=== PATIENT | male | born 1960 | race Caucasian/White ===

== ENCOUNTER 2018-08-29 16:31 | Inpatient (IN) ==
[2018-08-29] MEDS ORDERED: Morphine Inj 4 MG/ML Vial IV.PUSH ONE (21:40)
[2018-08-29] MEDS ORDERED: Sod Chloride 0.9% Inj 1,000 ML IV.SIG ONE (21:40)
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
--- NOTE | 2018-08-29 21:59 | XR ---
EXAM DATE: 08/29/2018 9:54 PM EST AGE/SEX: 57 years / Male INDICATIONS: Lower chest, upper abdomen pain. Pain on left side CLINICAL DATA: This is the patient's initial encounter. Patient reports that signs and symptoms have been present for 1 day and indicates a pain score of 10/10. MEDICAL/SURGICAL HISTORY: None. None. COMPARISON: No prior exams available for comparison. FINDINGS: There is scattered minimal infiltrate in the lateral lungs bilaterally without dense consolidation. N o effusion. No pneumothorax. Mildly tortuous aorta. CONCLUSION: Minimal ill-defined infiltrate in the lungs. Findings nonspecific but cannot exclude mild bronchopneu monia. Electronically signed by: Rangel Parra MD Board Certified Radiologist 08/29/2018 9:58 PM EST
[2018-08-29 22:18] LABS: Baso % (Auto) 0.2 % (0.0-2.0); Eos % (Auto) 0.3 % (0.0-4.0); Hematocrit 41.1 % (39.0-51.0); Hemoglobin 14.3 gm/dL (13.0-17.0); Lymph % (Auto) 7.1 % (9.0-44.0); Mean Corpuscular HGB Conc 34.7 % (32.0-36.0); Mean Corpuscular Hemoglobin 30.2 pg (27.0-34.0); Mean Corpuscular Volume 87.1 fL (80.0-100.0); Mean Platelet Volume 7.4 fL (7.0-11.0); Mono # (Auto) 1.4 th/mm3 (0.0-0.9); Mono % (Auto) 10.1 % (0.0-8.0); Neut # (Auto) 11.1 th/mm3 (1.8-7.7); Neut % (Auto) 82.3 % (16.0-70.0); Platelet Count 493 th/mm3 (150-450); Red Blood Count 4.73 mil/mm3 (4.50-5.90); Red Cell Distribution Width 12.5 % (11.6-17.2); White Blood Count 13.5 th/mm3 (4.0-11.0)
[2018-08-29] MEDS ORDERED: Azithromycin Powder 1 GM Packet PO ONE (22:20)
[2018-08-29 22:31] LABS: Activated Partial Thrombo Time 23.1 sec (23.4-31.7); INR 1.1 Ratio; Prothrombin Time 10.7 sec (9.8-11.6)
[2018-08-29 22:36] LABS: Albumin 3.3 g/dL (3.4-5.0); Anion Gap 8 meq/L (5-15); Aspartate Aminotransferase 22 U/L (15-37); Blood Urea Nitrogen 8 mg/dL (7-18); Carbon Dioxide 23.9 meq/L (21.0-32.0); Chloride 108 meq/L (98-107); Glomerular Filtration Rate Greater Than 89 mL/min (>89); Glucose,Random 116 mg/dL (74-106); Lipase 101 U/L (73-393); Magnesium 2.2 mg/dL (1.5-2.5); Sodium 140 meq/L (136-145)
[2018-08-29 22:37] LABS: Alanine Aminotransferase 27 U/L (12-78)
[2018-08-29 22:41] LABS: Alkaline Phosphatase 62 U/L (45-117)
[2018-08-29 22:44] LABS: Creatine Kinase 59 U/L (39-308)
[2018-08-29 23:23] LABS: Bilirubin,Urine Negative (Negative); Clarity,Urine Hazy (Clear); Color,Urine Yellow (Yellw/Straw); Glucose,Urine (UA) Negative (Negative); Leukocyte Esterase,Urine Negative (Negative); Mucus,Urine Many /lpf (Occasional); Nitrite,Urine Negative (Negative); Specific Gravity,Urine 1.024 (1.002-1.035)
--- NOTE | 2018-08-30 01:35 | CT ---
EXAM DATE: 08/30/2018 12:48 AM EST AGE/SEX: 57 years / Male INDICATIONS: Left sided abdomen pain. CLINICAL DATA: This is the patient's initial encounter. Patient reports that signs and symptoms have been present for 1 day and indicates a pain score of 7/10. MEDICAL/SURGICAL HISTORY: None. None. ORAL CONTRAST: No oral contrast ingested. RADIATION DOSE: 13.44 CTDI (mGy) COMPARISON: No prior exams available for comparison. TECHNIQUE: Multiple contiguous axial images were obtained through the abdomen and pelvis following b olus infusion of 93 ml Omnipaque 350 (iohexol) nonionic water-soluble contrast as a cumulative dose for multiple exams. No oral contrast ingested. Using automated exposure control and adjustment of t he mA and/or kV according to patient size, radiation dose was kept as low as reasonably achievable to obtain optimal diagnostic quality images. DICOM format image data is available electronically for r eview and comparison. FINDINGS: Lower Lungs: Probable subpleural scattered atelectatic changes in both hemithoraces. No confluent inf iltrate. Liver: The liver has a homogeneous density without space-occupying lesion. There is no dilation of th e biliary tree. Spleen: Spleen has a heterogeneous enhancement pattern but this is not characteristic of the patchy enhancement identified on the early phase of contrast administration. I'm concerned that this represe nts splenic infarction with a good portion of the splenic periphery an opacified. In addition, there appears to be some thrombus within portions of the splenic artery. Pancreas: Unremarkable without mass or calcification. Kidneys: Normal in size and shape. No evidence of mass or hydronephrosis. Adrenal Glands: Unremarkable. Aorta: The aorta and proximal iliac vessels are grossly unremarkable without aneurysmal dilation. Bowel/Mesentery: The bowel loops are grossly unremarkable. The cecum and sigmoid colon have a normal configuration. Abdominal Wall: Intact. Retroperitoneum: No evidence of adenopathy in the retrocrural, para-aortic, or deep pelvic regions. Bladder: Contours are smooth. Reproductive Organs: Prostate is prominent measuring approximately 5 cm in the greatest transverse d imension with dystrophic type calcification. Inguinal: The inguinal region is unremarkable without evidence of adenopathy. Bony Structures: Unremarkable. Post Contrast: No abnormal areas of enhancement seen. CONCLUSION: 1. I believe patient symptoms are due to splenic infarction with only central enhancement of the spl enic parenchyma. There appears to be some thrombus within the splenic artery. 2. Prominent prostate with dystrophic type calcifications. Electronically signed by: Jeffery Mcbride MD Board Certified Radiologist 08/30/2018 1:34 AM EST
[2018-08-30] MEDS ORDERED: Acetaminophen 325 MG Tablet PO PRN (03:29)
[2018-08-30] MEDS ORDERED: Bisacodyl 10 MG Supp RECTAL PRN (03:29)
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
[2018-08-30] MEDS: Senna/Docusate Sodium 8.6/50 MG Tablet PO SCH ×2 (09:35→22:50)
--- NOTE | 2018-08-30 11:05 | P.PNIM ---
Subjective Interval history: Follow-up for splenic infarct/thrombus, bronchopneumonia. Patient reports feeling slightly better today, although still has left upper quadrant pain Radiation. He states the pain is rated a 10/10 upon arrival, now down to 8/10. He states he does get some relief with pain medication, although the Percocet made him very drowsy. He denies any nausea or vomiting. Denies any fevers or chills. He reports a continued cough, although improving. Denies any other medical complaints at this time. Physical Exam Vital signs: Vital Signs 08/29/18 16:42 08/29/18 22:03 08/29/18 22:09 Temperature 97.8 F Pulse Rate 74 76 76 Respiratory Rate 17 16 Blood Pressure 168/93 H 173/91 H Pulse Oximetry 97 98 99 08/29/18 23:00 08/30/18 02:30 08/30/18 03:45 Temperature Pulse Rate 80 80 78 Respiratory Rate 16 16 16 Blood Pressure 189/86 H 177/100 H 164/81 H Pulse Oximetry 98 97 97 08/30/18 04:00 08/30/18 04:50 08/30/18 08:21 Temperature 98.9 F 98.6 F Pulse Rate 79 85 Respiratory Rate 18 18 20 Blood Pressure 190/91 H 158/97 H Pulse Oximetry 98 97 Intake & Output 08/29/18 08/30/18 08/30/18 18:59 06:59 18:59 Intake Total 1340 / 1340 Balance 1340 / 1340 Weight 90.718 kg Intake: IV 1100 / 1100 NS Inj 1,000 ML @ Wide Open IV. 1000 / 1000 SIG BOLUS ONE Rx#:[id number] Rocephin Inj 1,000 MG In NS Inj 100 / 100 100 ML @ 200 mls/hr IV.SIG ONCE ONE Rx#:[id number] Oral 240 / 240 Narrative: GENERAL: Well-nourished, well-developed pleasant middle-aged male patient in [facility]. SKIN: Warm and dry. No rash. HEENT: Normocephalic. Atraumatic. Pupils equal and round. Mucous membranes pink and moist. CARDIOVASCULAR: Regular rate and rhythm. No murmur appreciated. RESPIRATORY: No accessory muscle use. Clear to auscultation. Breath sounds equal bilaterally. GASTROINTESTINAL: Abdomen soft, nondistended, left upper quadrant tenderness to palpation. Normoactive bowel sounds x4. MUSCULOSKELETAL: No obvious deformities. Extremities without clubbing, cyanosis , or edema. NEUROLOGICAL: Awake and alert. No obvious cranial nerve deficits. Moving all extremities spontaneously. Normal speech. PSYCHIATRIC: Appropriate mood and affect; insight and judgment normal. Results Labs CBC & Chem 7: 08/29/18 22:00 08/29/18 22:00 Labs: Microbiology 08/29/18 22:45 Blood - Peripheral Aerobic Blood Culture - Preliminary No growth in 1 day 08/29/18 22:45 Blood - Peripheral Anaerobic Blood Culture - Preliminary No growth in 1 day 08/29/18 22:40 Blood - Peripheral Aerobic Blood Culture - Preliminary No growth in 1 day 08/29/18 22:40 Blood - Peripheral Anaerobic Blood Culture - Preliminary No growth in 1 day Imaging Imaging: Impressions Chest X-Ray 08/29/18 21:40 CONCLUSION: Minimal ill-defined infiltrate in the lungs. Findings nonspecific but cannot exclude mild bronchopneumonia. Abdomen/Pelvis CT 08/29/18 21:42 CONCLUSION: 1. I believe patient symptoms are due to splenic infarction with only central enhancement of the splenic parenchyma. There appears to be some thrombus within the splenic artery. 2. Prominent prostate with dystrophic type calcifications. Assessment and Plan Plan 57-year-old male with no significant past medical history presents to the emergency department for evaluation of left-sided abdominal/flank pain. 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 Unknown etiology of thrombosis. -Check echocardiogram -Pain control with tramadol prn -Hematology consulted as patient may need workup for coagulopathy Community-acquired pneumonia: Patient with 2-week history of cough. + leukocytosis with WBC 13.5K. -Chest x-ray reviewed, shows minimal ill-defined infiltrate in the lungs -Blood cultures with NGTD -Continue antibiotics with azithromycin/Rocephin Hypertension: No history of blood pressure, although BP has been elevated throughout admission, likely exacerbated by pain -Control pain with tramadol as needed -IV Vasotec prn -Monitor BP, add antihypertensives as needed DVT prophylaxis: Teds/SCDs; await hematology input regarding chemical prophylaxis Progress Note: Quality VTE Deep Vein Thrombosis/Pulmonary Embolism Present on Admission: No
--- NOTE | 2018-08-30 14:23 | ECG ---
Date Performed: 08/29/2018 Time Performed: 22:08:04 PTAGE: 57 years EKG: Sinus rhythm NORMAL ECG NO PREVIOUS TRACING DOCTOR: Kevin Narvaez Interpretating Date/Time 08/30/2018 14:20:58
--- NOTE | 2018-08-30 17:14 | ECHRPT ---
Indication: Shortnesss of breath CONCLUSIONS Normal left ventricular size. Wall thickness is normal. The left ventricular systolic function is normal with an estimated ejection fraction in the range of 55-60%. The proximal aorta and sinotubular junction are poorly visualized. In the PLAX window, there appears to be an echolucent linear structure which may represent atheromatous plaque, calcification of the noncoro nary cusp of the aortic valve or possible artifact. Clinical correlation recommended. May consider chest CTA for further evaluation. Trace mitral valve regurgitation. The estimated pulmonary arterial pressure is 30 mmHg. BP: / HR: Rhythm: MEASUREMENTS (Male / Female) Normal Values Technical Quality: 2D ECHO LV Diastolic Diameter PLAX 4.9 cm 4.2 - 5.9 / 3.9 - 5.3 cm LV Systolic Diameter PLAX 3.8 cm IVS Diastolic Thickness 0.8 cm 0.6 - 1.0 / 0.6 - 0.9 cm LVPW Diastolic Thickness 1.0 cm 0.6 - 1.0 / 0.6 - 0.9 cm LV Relative Wall Thickness 0.4 RV Internal Dim ED PLAX 3.0 cm LVOT Diameter 2.2 cm Aortic Root Diameter 2.6 cm LA Systolic Diameter LX 2.8 cm 3.0 - 4.0 / 2.7 - 3.8 cm M-MODE Aortic Root Diameter MM 3.7 cm LA Systolic Diameter MM 3.8 cm LA Ao Ratio MM 1.0 AV Cusp Separation MM 1.6 cm DOPPLER AV Peak Velocity 194.0 cm/s AV Peak Gradient 15.1 mmHg LVOT Peak Velocity 74.0 cm/s LVOT Peak Gradient 2.2 mmHg AV Area Cont Eq pk 1.4 cm Mitral E Point Velocity 76.5 cm/s Mitral A Point Velocity 94.3 cm/s Mitral E to A Ratio 0.8 LV E' Lateral Velocity 12.5 cm/s Mitral E to LV E' Lateral Ratio 6.1 LV E' Septal Velocity 9.8 cm/s Mitral E to LV E' Septal Ratio 7.8 TR Peak Velocity 221.0 cm/s TR Peak Gradient 19.5 mmHg Right Atrial Pressure 10.0 mmHg Pulmonary Artery Systolic Pressu 29.5 mmHg Right Ventricular Systolic Press 29.5 mmHg PV Peak Velocity 136.0 cm/s PV Peak Gradient 7.4 mmHg FINDINGS LEFT VENTRICLE Normal left ventricular size. Wall thickness is normal. The left ventricular systolic function is normal with an estimated ejection fraction in the range of 55-60%. RIGHT VENTRICLE Normal right ventricular size and systolic function. LEFT ATRIUM The left atrial size is normal. RIGHT ATRIUM The right atrial size is normal. ATRIAL SEPTUM Normal atrial septal thickness without atrial level shunting by limited color doppler interrogation. AORTA The aortic root and proximal ascending aorta are normal in size on limited imaging. The proximal aorta and sinotubular junction are poorly visualized. In the PLAX window, there appears to be an echolucent linear structure which may represent atheromatous plaque, calcification of the noncoro nary cusp of the aortic valve or possible artifact. Clinical correlation recommended. May consider chest CTA for further evaluation. MITRAL VALVE Structurally normal mitral valve. Trace mitral valve regurgitation. AORTIC VALVE The aortic valve is not well visualized. No aortic valve stenosis or regurgitation. TRICUSPID VALVE The estimated pulmonary arterial pressure is 30 mmHg. PULMONARY VALVE No pulmonary valve regurgitation or stenosis. VESSELS The inferior vena cava is normal in size. PERICARDIUM No pericardial effusion. Anthony Khan (Electronically Signed) Final Date:30 August 2018 17:13
[2018-08-30] MEDS: Azithromycin 250 MG Tablet PO SCH (22:48)
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
[2018-08-31 07:34] LABS: Baso % (Auto) 0.2 % (0.0-2.0); Eos % (Auto) 0.3 % (0.0-4.0); Hematocrit 38.3 % (39.0-51.0); Hemoglobin 13.6 gm/dL (13.0-17.0); Lymph # (Auto) 1.4 th/mm3 (1.0-4.8); Lymph % (Auto) 9.4 % (9.0-44.0); Mean Corpuscular HGB Conc 35.4 % (32.0-36.0); Mean Corpuscular Hemoglobin 30.9 pg (27.0-34.0); Mean Corpuscular Volume 87.2 fL (80.0-100.0); Mean Platelet Volume 7.6 fL (7.0-11.0); Mono # (Auto) 2.9 th/mm3 (0.0-0.9); Mono % (Auto) 19.6 % (0.0-8.0); Neut # (Auto) 10.6 th/mm3 (1.8-7.7); Neut % (Auto) 70.5 % (16.0-70.0); Platelet Count 451 th/mm3 (150-450); Red Blood Count 4.39 mil/mm3 (4.50-5.90); Red Cell Distribution Width 12.2 % (11.6-17.2)
[2018-08-31 07:57] LABS: Anion Gap 10 meq/L (5-15); Blood Urea Nitrogen 5 mg/dL (7-18); Calcium 8.4 mg/dL (8.5-10.1); Chloride 103 meq/L (98-107); Glomerular Filtration Rate Greater Than 89 mL/min (>89); Glucose,Random 103 mg/dL (74-106); Potassium 3.5 meq/L (3.5-5.1); Sodium 137 meq/L (136-145)
[2018-08-31 08:16] LABS: Platelet Estimate Normal (Normal); Platelet Morphology Normal (Normal)
[2018-08-31] MEDS: Azithromycin 250 MG Tablet PO SCH (08:48)
[2018-08-31] MEDS: Senna/Docusate Sodium 8.6/50 MG Tablet PO SCH ×2 (08:49→21:40)
[2018-08-31] MEDS: Acetaminophen 325 MG Tablet PO PRN (08:49)
--- NOTE | 2018-08-31 11:06 | P.PNIM ---
Subjective Interval history: Follow-up for splenic infarct/thrombus, pneumonia. Patient reports continued constant left upper quadrant abdominal pain, not much improved compared to yesterday, although does get some relief with tramadol. He reports fevers overnight with T-max 101.2 this morning. He reports a continued cough productive of white sputum. Denies any chest pain or shortness of breath. Denies any other medical complaints at this time. Physical Exam Vital signs: Vital Signs 08/30/18 12:06 08/30/18 16:28 08/30/18 20:00 Temperature 99.2 F 98.8 F 99.9 F H Pulse Rate 84 88 93 H Respiratory Rate 20 20 20 Blood Pressure 162/92 H 170/88 H 139/82 Pulse Oximetry 96 96 94 L 08/31/18 00:00 08/31/18 04:00 08/31/18 08:00 Temperature 98.9 F 100.5 F H 101.2 F H Pulse Rate 82 80 90 Respiratory Rate 20 20 16 Blood Pressure 123/74 157/81 H 147/90 H Pulse Oximetry 94 L 92 L 94 L Intake & Output 08/30/18 08/31/18 08/31/18 18:59 06:59 18:59 Intake Total 480 / 480 100 / 100 Output Total 3 / 3 Balance 477 / 477 100 / 100 Intake: IV 100 / 100 Rocephin Inj 1,000 MG In NS Inj 100 / 100 100 ML @ 200 mls/hr IV.SIG Q24H [facility] Rx#:[id number] Oral 480 / 480 Output: Urine 3 / 3 Other: # Voids 3 Date of Last Bowel Movement 08/30/18 Narrative: GENERAL: Well-nourished, well-developed pleasant middle-aged male patient in [facility]. SKIN: Warm and dry. No rash. HEENT: Pupils equal and round. Mucous membranes pink and moist. CARDIOVASCULAR: Regular rate and rhythm. No murmur appreciated. RESPIRATORY: No accessory muscle use. Clear to auscultation. Breath sounds equal bilaterally. GASTROINTESTINAL: Abdomen soft, nondistended, left upper quadrant tenderness to palpation. Normoactive bowel sounds x4. MUSCULOSKELETAL: No obvious deformities. Extremities without clubbing, cyanosis , or edema. NEUROLOGICAL: Awake and alert. No obvious cranial nerve deficits. Moving all extremities spontaneously. Normal speech. PSYCHIATRIC: Appropriate mood and affect; insight and judgment normal. Results Labs CBC & Chem 7: 08/31/18 05:55 08/31/18 05:55 Labs: Microbiology 08/29/18 22:45 Blood - Peripheral Aerobic Blood Culture - Preliminary No growth in 2 days 08/29/18 22:45 Blood - Peripheral Anaerobic Blood Culture - Preliminary No growth in 2 days 08/29/18 22:40 Blood - Peripheral Aerobic Blood Culture - Preliminary No growth in 2 days 08/29/18 22:40 Blood - Peripheral Anaerobic Blood Culture - Preliminary No growth in 2 days Assessment and Plan Plan 57-year-old male with no significant past medical history presents to the emergency department for evaluation of left-sided abdominal/flank pain. 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 Unknown etiology of thrombosis. -Echocardiogram showed normal EF 55-60%; however there appears to be an echolucent linear structure which may represent atheromatous plaque, calcification of the noncoronary cusp of the aortic valve, or possible artifact ; recommended to consider chest CTA for further evaluate -Check chest CTA and give IVF hydration -discussed with Dr. Jacobson -Pain control with tramadol prn (patient was very sensitive to Percocet) -Hematology consulted, appreciate recommendations, hypercoagulable and myeloproliferative workup in progress -Per hematology, may need anticoagulation depending on underlying etiology Sepsis with Community-acquired pneumonia: Patient with 2-week history of cough. +leukocytosis with WBC 15K, fever Tmax 101.2, and suspected source-pneumonia -Chest x-ray reviewed, shows minimal ill-defined infiltrate in the lungs -Blood cultures with NGTD -Repeat blood cultures ordered with spike of fever today 08/31 -Check sputum culture and influenza -Give IVF hydration -Continue antibiotics with azithromycin/Rocephin for now, consider more broad spectrum if fevers/leukocytosis persist -Checking Chest CTA as above Hypertension: No history of high blood pressure, although BP has been elevated throughout admission, likely exacerbated by pain -Control pain with tramadol as needed -IV Vasotec prn -Monitor BP, add antihypertensives as needed DVT prophylaxis: Teds/SCDs; heparin sq Progress Note: Quality VTE Deep Vein Thrombosis/Pulmonary Embolism Present on Admission: No
--- NOTE | 2018-08-31 15:36 | P.PNONC ---
Subjective Interval history: Patient lying in bed, in no acute distress. He reports continued pain to his left upper quadrant. Denies chest pain or shortness of breath. Denies cough. Objective Vital Signs/Intake & Output: Vital Signs 08/30/18 16:28 08/30/18 20:00 08/31/18 00:00 Temperature 98.8 F 99.9 F H 98.9 F Pulse Rate 88 93 H 82 Respiratory Rate 20 20 20 Blood Pressure 170/88 H 139/82 123/74 Pulse Oximetry 96 94 L 94 L 08/31/18 04:00 08/31/18 08:00 08/31/18 11:47 Temperature 100.5 F H 101.2 F H 99.1 F Pulse Rate 80 90 Respiratory Rate 20 16 Blood Pressure 157/81 H 147/90 H Pulse Oximetry 92 L 94 L 08/31/18 12:21 Temperature 98.2 F Pulse Rate 88 Respiratory Rate 16 Blood Pressure 138/93 H Pulse Oximetry 96 Intake & Output 08/30/18 08/31/18 08/31/18 18:59 06:59 18:59 Intake Total 480 / 480 100 / 100 Output Total 3 / 3 Balance 477 / 477 100 / 100 Intake: IV 100 / 100 Rocephin Inj 1,000 MG In NS Inj 100 / 100 100 ML @ 200 mls/hr IV.SIG Q24H [facility] Rx#:[id number] Oral 480 / 480 Output: Urine 3 / 3 Other: # Voids 3 Date of Last Bowel Movement 08/30/18 Result Diagrams: 09/01/18 05:25 09/01/18 05:25 Laboratory Results: Laboratory Results - last 24 hr 08/31/18 08/31/18 08/31/18 05:55 05:55 11:39 WBC 15.0 H RBC 4.39 L Hgb 13.6 Hct 38.3 L MCV 87.2 MCH 30.9 MCHC 35.4 RDW 12.2 Plt Count 451 H MPV 7.6 Prelim Diff (Auto) Slide review pending Neut % (Auto) 70.5 H Lymph % (Auto) 9.4 [place] % (Auto) 19.6 H Eos % (Auto) 0.3 Baso % (Auto) 0.2 Neut # (Auto) 10.6 H Lymph # (Auto) 1.4 [place] # (Auto) 2.9 H Eos # (Auto) 0.0 Baso # (Auto) 0.0 WBC Differential . Diff Scan Auto diff confirmed Differential Comment . Platelet Estimate Normal Platelet Morphology Normal Sodium 137 Potassium 3.5 Chloride 103 Carbon Dioxide 24.0 Anion Gap 10 BUN 5 L Creatinine 0.78 Estimated GFR Greater than 89 Random Glucose 103 Calcium 8.4 L JAK2 Mutation (PCR) Cancelled Calreticulin Mutation Cancelled MPL Mut Analysis Result Cancelled BCR/abl Interp & Reprt Cancelled Culture Results: Microbiology 08/29/18 22:45 Aerobic Blood Culture - Preliminary Blood - Peripheral No growth in 2 days Anaerobic Blood Culture - Preliminary No growth in 2 days 08/29/18 22:40 Aerobic Blood Culture - Preliminary Blood - Peripheral No growth in 2 days Anaerobic Blood Culture - Preliminary No growth in 2 days Medications: Active Medications Generic Name Dose Route Start Last Admin Trade Name Freq PRN Reason Stop Dose Admin Acetaminophen 650 mg 08/30/18 11:41 08/31/18 08:49 Tylenol PO 650 mg Q4H PRN Administration headache/fever/pain 1-4 Azithromycin 500 mg 08/30/18 22:00 08/31/18 08:48 Zithromax PO 500 mg DAILY [facility] Administration Ceftriaxone Sodium 1,000 mg/ 100 mls @ 200 mls/hr 08/30/18 22:00 08/30/18 23: 50 Sodium Chloride IV.SIG Infused Q24H [facility] Infusion Senna/Docusate Sodium 1 tab 08/30/18 09:00 08/31/18 08:49 Valery-Colace PO 1 tab BID [facility] Administration Sodium Chloride 2 ml 08/30/18 09:00 08/31/18 08:49 Ns Flush IV.FLUSH 2 ml BID [facility] Administration Tramadol HCl 50 mg 08/30/18 11:42 08/31/18 15:20 Ultram PO 50 mg Q6H PRN Administration pain scale 5 to 10 Objective Remarks: GENERAL: Well-nourished, well-developed male patient, no acute distress. SKIN: Warm and dry. HEAD: Normocephalic. EYES: No scleral icterus. No injection or drainage. NECK: Supple, trachea midline. CARDIOVASCULAR: Regular rate and rhythm without murmurs. RESPIRATORY: Anterior breath sounds clear, equal bilaterally. No accessory muscle use. GASTROINTESTINAL: Abdomen soft, tender LUQ, nondistended. EXTREMITIES: No cyanosis, or edema. MUSCULOSKELETAL: Adequate muscle tone. NEUROLOGICAL: No obvious focal deficit. Awake, alert, and oriented x3. PSYCHIATRIC: Appropriate mood and affect; insight and judgment normal. Assessment/Plan - Plan Mr. guzman is a pleasant 57-year-old gentleman currently hospitalized with pneumonia and splenic infarct. Plan: 1. Splenic infarct, treatment dependent on underlying cause. Hypercoagulable and myeloproliferative workup pending. 2. Fever, secondary to splenic infarct and pneumonia. Continues on antibiotics. Management per attending. 3. Continue supportive care.
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
[2018-08-31] MEDS: Sod Chloride 0.9% Inj 1,000 ML IV.CONT SCH (19:27)
[2018-08-31] MEDS: Heparin - SQ 10,000 UNITS/ML Vial SQ SCH (21:40)
[2018-09-01] MEDS: Sod Chloride 0.9% Inj 1,000 ML IV.CONT SCH ×2 (04:35→15:20)
[2018-09-01] MEDS: Heparin - SQ 10,000 UNITS/ML Vial SQ SCH ×2 (05:06→13:54)
[2018-09-01 06:25] LABS: Baso % (Auto) 0.3 % (0.0-2.0); Eos # (Auto) 0.1 th/mm3 (0.0-0.4); Eos % (Auto) 0.6 % (0.0-4.0); Hematocrit 36.8 % (39.0-51.0); Hemoglobin 12.7 gm/dL (13.0-17.0); Lymph # (Auto) 1.2 th/mm3 (1.0-4.8); Lymph % (Auto) 7.4 % (9.0-44.0); Mean Corpuscular HGB Conc 34.7 % (32.0-36.0); Mean Corpuscular Hemoglobin 30.5 pg (27.0-34.0); Mean Platelet Volume 7.4 fL (7.0-11.0); Mono # (Auto) 2.7 th/mm3 (0.0-0.9); Mono % (Auto) 17.1 % (0.0-8.0); Neut # (Auto) 11.7 th/mm3 (1.8-7.7); Neut % (Auto) 74.6 % (16.0-70.0); Platelet Count 522 th/mm3 (150-450); Red Blood Count 4.18 mil/mm3 (4.50-5.90); Red Cell Distribution Width 12.6 % (11.6-17.2); White Blood Count 15.6 th/mm3 (4.0-11.0)
[2018-09-01 06:49] LABS: Anion Gap 10 meq/L (5-15); Blood Urea Nitrogen 7 mg/dL (7-18); Calcium 8.5 mg/dL (8.5-10.1); Carbon Dioxide 25.7 meq/L (21.0-32.0); Chloride 101 meq/L (98-107); Glomerular Filtration Rate Greater Than 89 mL/min (>89); Glucose,Random 100 mg/dL (74-106); Sodium 137 meq/L (136-145)
[2018-09-01 07:08] LABS: Lymphocytes 7 % (9-44); Monocytes 22 % (0-8)
[2018-09-01 07:10] LABS: Platelet Morphology Normal (Normal)
[2018-09-01] MEDS: Senna/Docusate Sodium 8.6/50 MG Tablet PO SCH ×2 (08:56→21:16)
[2018-09-01] MEDS: Azithromycin 250 MG Tablet PO SCH (08:57)
--- NOTE | 2018-09-01 11:27 | P.PNIM ---
Subjective Interval history: The patient is in bed appears in not acute distress. He was noted however with fevers earlier today repeat blood cultures and consult infectious disease. Patient has some more swelling on his fingers on the right hand with associated pain. He denies any overt bleeding. No nausea or vomiting. No diarrhea or constipation. Physical Exam Vital signs: Vital Signs 08/31/18 11:47 08/31/18 12:21 08/31/18 16:25 Temperature 99.1 F 98.2 F 98.7 F Pulse Rate 88 83 Respiratory Rate 16 16 Blood Pressure 138/93 H 147/88 H Pulse Oximetry 96 93 L 08/31/18 19:41 08/31/18 23:54 09/01/18 04:00 Temperature 98.8 F 97.4 F L 99.4 F Pulse Rate 88 72 70 Respiratory Rate 20 20 20 Blood Pressure 139/89 132/78 137/84 Pulse Oximetry 94 L 96 96 09/01/18 09:02 Temperature Pulse Rate 98 H Respiratory Rate Blood Pressure 153/92 H Pulse Oximetry 95 Intake & Output 08/31/18 09/01/18 09/01/18 18:59 06:59 18:59 Intake Total 360 / 360 1580 / 1580 Output Total 200 / 200 725 / 725 Balance 160 / 160 855 / 855 Weight 87.5 kg Intake: IV 1100 / 1100 NS Inj 1,000 ML @ 100 mls/hr IV 1000 / 1000 .CONT .Q10H [facility] Rx#:[id number] Rocephin Inj 1,000 MG In NS Inj 100 / 100 100 ML @ 200 mls/hr IV.SIG Q24H [facility] Rx#:[id number] Oral 360 / 360 480 / 480 Output: Urine 200 / 200 725 / 725 Other: Date of Last Bowel Movement 08/30/18 Narrative: GENERAL: Pleasant 57-year-old male, appears in not acute distress SKIN: Warm and dry. No rash.Right hand with swelling more prominent over digits HEENT: Pupils equal and round. Mucous membranes pink and moist. CARDIOVASCULAR: Regular rate and rhythm. No murmur appreciated. RESPIRATORY: No accessory muscle use. Clear to auscultation. Breath sounds equal bilaterally. GASTROINTESTINAL: Abdomen soft, nondistended, left upper quadrant tenderness to palpation. Normoactive bowel sounds x4. MUSCULOSKELETAL: No obvious deformities. Extremities without clubbing, cyanosis. Right hand edema more on fingers NEUROLOGICAL: Awake and alert. No obvious cranial nerve deficits. Moving all extremities spontaneously. Normal speech. PSYCHIATRIC: Appropriate mood and affect; insight and judgment normal. Results Labs CBC & Chem 7: 09/01/18 05:25 09/01/18 05:25 Labs: Microbiology 08/29/18 22:45 Blood - Peripheral Aerobic Blood Culture - Preliminary No growth in 3 days 08/29/18 22:45 Blood - Peripheral Anaerobic Blood Culture - Preliminary No growth in 3 days 08/29/18 22:40 Blood - Peripheral Aerobic Blood Culture - Preliminary No growth in 3 days 08/29/18 22:40 Blood - Peripheral Anaerobic Blood Culture - Preliminary No growth in 3 days 08/31/18 11:58 Sputum - Expectorated Sputum Gram Stain - Final 08/31/18 18:00 Nasal Wash Influenza Types A,B Antigen - Final Negative for FLU A and B antigen Infection due to influenza A or B cannot be ruled out since the antigen present in the sample may be below the detection limit of the test. Imaging Imaging: Impressions Chest CTA 08/31/18 00:00 CONCLUSION: 1. The study is degraded by breathing motion. 2. No pulmonary emboli observed. 3. Bilateral pulmonary infiltrates most pronounced within the left lower lobe. 4. Coronary artery atherosclerotic calcifications. 5. Tiny left effusion. Assessment and Plan Plan 57-year-old male with no significant past medical history presents to the emergency department for evaluation of left-sided abdominal/flank pain. 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 Unknown etiology of thrombosis. -Echocardiogram showed normal EF 55-60%; however there appears to be an echolucent linear structure which may represent atheromatous plaque, calcification of the noncoronary cusp of the aortic valve, or possible artifact ; recommended to consider chest CTA for further evaluate -Check chest CTA and give IVF hydration -discussed with Dr. Jacobson -Pain control with tramadol prn (patient was very sensitive to Percocet) -Hematology consulted, appreciate recommendations, hypercoagulable and myeloproliferative workup in progress -Per hematology, may need anticoagulation depending on underlying etiology -09/01 with edema in right hand and arm, will do US doppler. Note patient reports h/o SLE Sepsis with Community-acquired pneumonia: Patient with 2-week history of cough. +leukocytosis with WBC 15K, fever Tmax 101.2, and suspected source-pneumonia -Chest x-ray reviewed, shows minimal ill-defined infiltrate in the lungs -Blood cultures with NGTD -Repeat blood cultures ordered with spike of fever today 08/31 -Check sputum culture and influenza -Give IVF hydration -Continue antibiotics with azithromycin/Rocephin for now, consider more broad spectrum if fevers/leukocytosis persist -Checking Chest CTA as above -temp 102 today repeat blood cx, consult ID Hypertension: No history of high blood pressure, although BP has been elevated throughout admission, likely exacerbated by pain -Control pain with tramadol as needed -IV Vasotec prn -Monitor BP, add antihypertensives as needed DVT prophylaxis: Teds/SCDs; heparin sq Discussed with the patient, nurse Progress Note: Quality VTE Deep Vein Thrombosis/Pulmonary Embolism Present on Admission: No
[2018-09-01] MEDS: Acetaminophen 325 MG Tablet PO PRN ×2 (12:02→16:18)
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
--- NOTE | 2018-09-01 20:53 | P.PNONC ---
Subjective Interval history: Resting in bed Pain in RUQ improved. Pain in right arm with swelling of hand and middle finger. Non occlusive thrombus in distal baslic vein. Objective Vital Signs/Intake & Output: Vital Signs 08/31/18 23:54 09/01/18 04:00 09/01/18 09:02 Temperature 97.4 F L 99.4 F Pulse Rate 72 70 98 H Respiratory Rate 20 20 Blood Pressure 132/78 137/84 153/92 H Pulse Oximetry 96 96 95 09/01/18 12:00 09/01/18 13:06 09/01/18 14:03 Temperature 102.2 F H 98.9 F 98.7 F Pulse Rate 95 H 89 Respiratory Rate 18 Blood Pressure 166/94 H 154/96 H Pulse Oximetry 93 L 93 L 09/01/18 16:00 09/01/18 19:56 Temperature 99 F 98.7 F Pulse Rate 85 84 Respiratory Rate 18 18 Blood Pressure 143/85 H 146/92 H Pulse Oximetry 93 L 96 Intake & Output 09/01/18 09/01/18 09/02/18 06:59 18:59 06:59 Intake Total 1580 / 1580 360 / 360 Output Total 725 / 725 308 / 308 Balance 855 / 855 52 / 52 Weight 87.5 kg Intake: IV 1100 / 1100 0 / 0 NS Inj 1,000 ML @ 100 mls/hr IV 1000 / 1000 0 / 0 .CONT .Q10H [facility] Rx#:[id number] Rocephin Inj 1,000 MG In NS Inj 100 / 100 100 ML @ 200 mls/hr IV.SIG Q24H [facility] Rx#:[id number] Oral 480 / 480 360 / 360 Output: Urine 725 / 725 308 / 308 Other: Date of Last Bowel Movement 08/30/18 09/01/18 Result Diagrams: 09/01/18 05:25 09/01/18 05:25 Laboratory Results: Laboratory Results - last 24 hr 08/31/18 09/01/18 09/01/18 11:39 05:25 05:25 WBC 15.6 H RBC 4.18 L Hgb 12.7 L Hct 36.8 L MCV 88.0 MCH 30.5 MCHC 34.7 RDW 12.6 Plt Count 522 H MPV 7.4 Prelim Diff (Auto) Slide review pending Neut % (Auto) 74.6 H Lymph % (Auto) 7.4 L Turner % (Auto) 17.1 H Eos % (Auto) 0.6 Baso % (Auto) 0.3 Neut # (Auto) 11.7 H Lymph # (Auto) 1.2 Turner # (Auto) 2.7 H Eos # (Auto) 0.1 Baso # (Auto) 0.0 WBC Differential Manual diff final Seg Neuts % (Manual) 68 Band Neuts % (Manual) 3 Lymphocytes % (Manual) 7 L Monocytes % (Manual) 22 H Abs Neuts (Manual) 11.1 H Differential Comment . Platelet Estimate High H Platelet Morphology Normal Sodium 137 Potassium 4.0 Chloride 101 Carbon Dioxide 25.7 Anion Gap 10 BUN 7 Creatinine 0.79 Estimated GFR Greater than 89 Random Glucose 100 Calcium 8.5 Anti-Phospholipid Intrp JAK2 Mutation (PCR) Cancelled Calreticulin Mutation Cancelled MPL Mut Analysis Result Cancelled BCR/abl Interp & Reprt Cancelled Culture Results: Microbiology 08/31/18 11:58 Gram Stain - Final Sputum - Expectorated Sputum Sputum Culture - Preliminary Heavy growth normal respiratory beatriz at 24 hours 08/29/18 22:45 Aerobic Blood Culture - Preliminary Blood - Peripheral No growth in 3 days Anaerobic Blood Culture - Preliminary No growth in 3 days 08/29/18 22:40 Aerobic Blood Culture - Preliminary Blood - Peripheral No growth in 3 days Anaerobic Blood Culture - Preliminary No growth in 3 days 08/31/18 18:00 Influenza Types A,B Antigen - Final Nasal Wash Negative for FLU A and B antigen Infection due to influenza A or B cannot be ruled out since the antigen present in the sample may be below the detection limit of the test. Imaging Studies: Impressions Venous Doppler Study 09/01/18 00:00 CONCLUSION: 1. Nonocclusive thrombus in the distal basilic vein at the IV site. Medications: Active Medications Generic Name Dose Route Start Last Admin Trade Name Freq PRN Reason Stop Dose Admin Acetaminophen 650 mg 08/30/18 11:41 09/01/18 16:18 Tylenol PO 650 mg Q4H PRN Administration headache/fever/pain 1-4 Azithromycin 500 mg 08/30/18 22:00 09/01/18 08:57 Zithromax PO 500 mg DAILY [facility] Administration Heparin Sodium (Porcine) 5,000 units 08/31/18 22:00 09/01/18 13:54 Heparin Inj SQ 5,000 units Q8HR [facility] Administration Ceftriaxone Sodium 1,000 mg/ 100 mls @ 200 mls/hr 08/30/18 22:00 08/31/18 22: 25 Sodium Chloride IV.SIG Infused Q24H [facility] Infusion Sodium Chloride 1,000 mls @ 100 mls/hr 08/31/18 17:45 09/01/18 15:20 Ns Inj IV.CONT Not Given .Q10H [facility] Senna/Docusate Sodium 1 tab 08/30/18 09:00 09/01/18 08:56 Valery-Colace PO Not Given BID [facility] Sodium Chloride 2 ml 08/30/18 09:00 09/01/18 08:59 Ns Flush IV.FLUSH 2 ml BID [facility] Administration Tramadol HCl 50 mg 08/30/18 11:42 09/01/18 10:35 Ultram PO 50 mg Q6H PRN Administration pain scale 5 to 10 Objective Remarks: GENERAL: Well-nourished, well-developed patient. SKIN: Warm and dry. HEAD: Normocephalic. EYES: No scleral icterus. No injection or drainage. NECK: Supple, trachea midline. No JVD or lymphadenopathy. LYMPHATIC: No adenopathy. CARDIOVASCULAR: Regular rate and rhythm without murmurs. RESPIRATORY: Breath sounds equal bilaterally. No accessory muscle use. GASTROINTESTINAL: Abdomen soft, non-tender, nondistended. EXTREMITIES: No cyanosis, or edema. NEUROLOGICAL: No obvious focal deficit. Awake, alert, and oriented x3. PSYCHIATRIC: Appropriate mood and affect; insight and judgment normal. 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 Upon hospital discharge would place on apixaban 10 mg PO BID x 7 days followed by apixaban 5 mg PO BID. He will need close follow up in oncology clinic. Discussed risks vs benefits of anticoagulation with patient. myeloproliferate and hypercoagulable work up pending. Superficial venous thrombosis: symptomatic with swelling. Anticoagulation for above will assist with symptom relief.
[2018-09-01] MEDS: Enoxaparin Inj 100 MG/ML Syringe SQ SCH (21:19)
[2018-09-02] MEDS: Sod Chloride 0.9% Inj 1,000 ML IV.CONT SCH ×3 (00:47→20:20)
[2018-09-02] MEDS: Acetaminophen 325 MG Tablet PO PRN ×4 (01:46→20:25)
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
[2018-09-02] MEDS ORDERED: Vancomycin Consult Pharmacy 1 EACH OTHER SCH (08:30)
[2018-09-02] MEDS: Azithromycin 250 MG Tablet PO SCH (09:05)
[2018-09-02] MEDS: Senna/Docusate Sodium 8.6/50 MG Tablet PO SCH ×2 (09:05→20:17)
[2018-09-02] MEDS: Enoxaparin Inj 100 MG/ML Syringe SQ SCH ×2 (09:05→20:18)
--- NOTE | 2018-09-02 09:10 | XR ---
EXAM DATE: 09/02/2018 8:57 AM EST AGE/SEX: 57 years / Male INDICATIONS: Pneumonia. CLINICAL DATA: This is the patient's subsequent encounter. Patient reports that signs and symptoms h ave been present for 4 - 6 days and indicates a pain score of 8/10. MEDICAL/SURGICAL HISTORY: None. None. COMPARISON: [facility] [place] [facility] [place] 1[place] SINGLE AP, 08/29/2018. . FINDINGS: There is cardiomegaly with new parenchymal alveolar opacity left base. Right lung clear. No pneumothorax. CONCLUSION: Developing consolidative changes left base consistent with and inflammatory process Electronically signed by: Sheng Payne MD Board Certified Radiologist 09/02/2018 9:09 AM EST
[2018-09-02 10:57] LABS: C-Reactive Protein 25.1 mg/dL (0.00-0.30)
[2018-09-02 11:04] LABS: Hepatitits B Surface Antigen Nonreactive (Nonreactive)
[2018-09-02 11:33] LABS: Hepatitis A IgM Antibody Nonreactive (Nonreactive)
[2018-09-02] MEDS: Vancomycin Inj 1,250 MG in Sodium Chlor 0.9% Inj 250 ML IV.SIG SCH (13:31)
[2018-09-02 15:53] LABS: Dil Russell Viper Venom Conf ( NEGATIVE (NEGATIVE); Dil Russell Viper Venom Time M ND (CORRECTED); Lupus Anticoagulant PTT Screen 42 seconds (< OR = 40)
[2018-09-02 16:37] LABS: Factor V Leiden Mutation Negative (Negative); Protein C Functional 89 % (70 - 150)
--- NOTE | 2018-09-02 17:29 | P.PNONC ---
Subjective Interval history: Resting at side of bed. No distress. Swelling inr right hand Objective Vital Signs/Intake & Output: Vital Signs 09/01/18 19:56 09/02/18 00:00 09/02/18 03:22 Temperature 98.7 F 99.8 F H 98.9 F Pulse Rate 84 88 84 Respiratory Rate 18 18 16 Blood Pressure 146/92 H 144/89 H 144/91 H Pulse Oximetry 96 96 95 09/02/18 04:47 09/02/18 08:00 09/02/18 12:00 Temperature 100.0 F H 98.7 F Pulse Rate 99 H 91 H Respiratory Rate 18 18 16 Blood Pressure 175/97 H 140/90 Pulse Oximetry 93 L 91 L Intake & Output 09/01/18 09/02/18 09/02/18 18:59 06:59 18:59 Intake Total 360 / 360 1100 / 1100 1462.5 / 1462.5 Output Total 308 / 308 775 / 775 Balance 52 / 52 325 / 325 1462.5 / 1462.5 Weight 87.5 kg Intake: IV 0 / 0 1100 / 1100 1462.5 / 1462.5 NS Inj 1,000 ML @ 100 mls/hr IV 0 / 0 1000 / 1000 1000 / 1000 .CONT .Q10H [facility] Rx#:[id number] Maxipime Inj 2,000 MG In NS Inj 200 / 200 100 ML @ 200 mls/hr IV.SIG Q8H [facility] Rx#:[id number] Vancomycin Inj 1,250 MG In NS 262.5 / 262.5 Inj 250 ML @ 262.5 mls/hr IV. SIG Q12H [facility] Rx#:[id number] Rocephin Inj 1,000 MG In NS Inj 100 / 100 100 ML @ 200 mls/hr IV.SIG Q24H [facility] Rx#:[id number] Oral 360 / 360 Output: Urine 308 / 308 775 / 775 Other: Date of Last Bowel Movement 08/30/18 09/01/18 09/01/18 Result Diagrams: 09/01/18 05:25 09/01/18 05:25 Laboratory Results: Laboratory Results - last 24 hr 08/31/18 09/02/18 09/02/18 11:39 09:42 09:42 Thrombin Time 15 Lupus Anticoagulant LA PTT Screen 42 H dRVVT Screen 51 H LA dRVVT Confirm Negative dRVVT Mix ND Hexagonal Phase Confirm Positive A Protein C Activity 89 Protein S Activity 141 Factor V Leiden Mutat Negative Factor V Leiden Interp . Fact V Leiden Review By See below C-Reactive Protein 25.10 H Procalcitonin 0.26 H Anti-Phospholipid Intrp Hepatitis A IgM Ab Nonreactive Hep Bs Antigen Nonreactive Hep B Core IgM Ab Nonreactive Hep C IgG Ab Nonreactive HIV 1&2 Ab/P24 Ag 4thGn Nonreactive JAK2 Mutation (PCR) Cancelled Calreticulin Mutation Cancelled MPL Mut Analysis Result Cancelled BCR/abl Interp & Reprt Cancelled Culture Results: Microbiology 09/02/18 11:50 Streptococcus pneumoniae Antigen (M - Final Urine - Random Urine Presumptive negative for streptococcus pneumoniae antigen, suggesting no current or recent infection. Infection due to Streptococcus pneumoniae cannot be ruled out since the antigen present in the sample may be below the detection limit of the test. 09/02/18 11:50 Legionella Antigen - Final Urine - Random Urine Presumptive negative for Legionella pneumophila serogroup 1 antigen in urine, suggesting no recent or recurrent infection. Infection due to Legionella cannot be ruled out since other serogroups and species may cause disease, antigen may not be present in urine in early infection, and the level of antigen present in the urine may be below the detection limit of the test. 08/31/18 11:58 Gram Stain - Final Sputum - Expectorated Sputum Sputum Culture - Final Heavy growth normal respiratory beatriz 09/01/18 14:18 Aerobic Blood Culture - Preliminary Blood - Peripheral No growth in 1 day Anaerobic Blood Culture - Preliminary No growth in 1 day 09/01/18 14:26 Aerobic Blood Culture - Preliminary Blood - Peripheral No growth in 1 day Anaerobic Blood Culture - Preliminary No growth in 1 day 09/01/18 05:33 Aerobic Blood Culture - Preliminary Blood - Peripheral No growth in 1 day Anaerobic Blood Culture - Preliminary No growth in 1 day 09/01/18 05:25 Aerobic Blood Culture - Preliminary Blood - Peripheral No growth in 1 day Anaerobic Blood Culture - Preliminary No growth in 1 day 08/29/18 22:45 Aerobic Blood Culture - Preliminary Blood - Peripheral No growth in 4 days Anaerobic Blood Culture - Preliminary No growth in 4 days 08/29/18 22:40 Aerobic Blood Culture - Preliminary Blood - Peripheral No growth in 4 days Anaerobic Blood Culture - Preliminary No growth in 4 days 08/31/18 18:00 Influenza Types A,B Antigen - Final Nasal Wash Negative for FLU A and B antigen Infection due to influenza A or B cannot be ruled out since the antigen present in the sample may be below the detection limit of the test. Imaging Studies: Impressions Chest X-Ray 09/02/18 00:00 CONCLUSION: Developing consolidative changes left base consistent with and inflammatory process Medications: Active Medications Generic Name Dose Route Start Last Admin Trade Name Freq PRN Reason Stop Dose Admin Acetaminophen 650 mg 08/30/18 11:41 09/02/18 13:30 Tylenol PO 650 mg Q4H PRN Administration headache/fever/pain 1-4 Azithromycin 500 mg 08/30/18 22:00 09/02/18 09:05 Zithromax PO 500 mg DAILY [facility] Administration Enoxaparin Sodium 90 mg 09/01/18 21:00 09/02/18 09:05 Lovenox Inj SQ 90 mg Q12HR [facility] Administration Sodium Chloride 1,000 mls @ 100 mls/hr 08/31/18 17:45 09/02/18 10:03 Ns Inj IV.CONT 100 mls/hr .Q10H [facility] Administration Cefepime HCl 2,000 mg/ Sodium 100 mls @ 200 mls/hr 09/02/18 09:00 09/02/18 17 :27 Chloride IV.SIG Infused Q8H [facility] Infusion Vancomycin HCl 1,250 mg/ 262.5 mls @ 262.5 mls/hr 09/02/18 13:00 09/02/18 15: 00 Sodium Chloride IV.SIG Infused Q12H [facility] Infusion Senna/Docusate Sodium 1 tab 08/30/18 09:00 09/02/18 09:05 Valery-Colace PO Not Given BID [facility] Sodium Chloride 2 ml 08/30/18 09:00 09/02/18 09:05 Ns Flush IV.FLUSH Not Given BID [facility] Tramadol HCl 50 mg 08/30/18 11:42 09/02/18 16:28 Ultram PO 50 mg Q6H PRN Administration pain scale 5 to 10 Objective Remarks: GENERAL: Well-nourished, well-developed patient. SKIN: Warm and dry. HEAD: Normocephalic. EYES: No scleral icterus. No injection or drainage. LYMPHATIC: No adenopathy. CARDIOVASCULAR: Regular rate and rhythm without murmurs. RESPIRATORY:No accessory muscle use. GASTROINTESTINAL: Abdomen soft, non-tender, nondistended. EXTREMITIES: No cyanosis, or edema. MUSCULOSKELETAL: Adequate muscle tone. NEUROLOGICAL: No obvious focal deficit. Awake, alert, and oriented x3. PSYCHIATRIC: Appropriate mood and affect; insight and judgment normal. 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 Upon hospital discharge would place on apixaban 10 mg PO BID x 7 days followed by apixaban 5 mg PO BID. He will need close follow up in oncology clinic. Discussed risks vs benefits of anticoagulation with patient. myeloproliferate and hypercoagulable work up pending. Superficial venous thrombosis: symptomatic with swelling. Anticoagulation for above will assist with symptom relief. Fevers: Infectious work up
--- NOTE | 2018-09-02 18:19 | P.PNIM ---
Subjective Interval history: The patient is in bed he appears in not acute distress at this time. Still with swelling in his hand. No fever or chills overnight. No nausea or vomiting able to eat. No much appetite. Physical Exam Vital signs: Vital Signs 09/01/18 19:56 09/02/18 00:00 09/02/18 03:22 Temperature 98.7 F 99.8 F H 98.9 F Pulse Rate 84 88 84 Respiratory Rate 18 18 16 Blood Pressure 146/92 H 144/89 H 144/91 H Pulse Oximetry 96 96 95 09/02/18 04:47 09/02/18 08:00 09/02/18 12:00 Temperature 100.0 F H 98.7 F Pulse Rate 99 H 91 H Respiratory Rate 18 18 16 Blood Pressure 175/97 H 140/90 Pulse Oximetry 93 L 91 L 09/02/18 16:00 Temperature 98.9 F Pulse Rate 92 H Respiratory Rate 16 Blood Pressure 136/81 Pulse Oximetry 92 L Intake & Output 09/01/18 09/02/18 09/02/18 18:59 06:59 18:59 Intake Total 360 / 360 1100 / 1100 2262.5 / 2262.5 Output Total 308 / 308 775 / 775 760 / 760 Balance 52 / 52 325 / 325 1502.5 / 1502.5 Weight 87.5 kg Intake: IV 0 / 0 1100 / 1100 1462.5 / 1462.5 NS Inj 1,000 ML @ 100 mls/hr IV 0 / 0 1000 / 1000 1000 / 1000 .CONT .Q10H [facility] Rx#:[id number] Maxipime Inj 2,000 MG In NS Inj 200 / 200 100 ML @ 200 mls/hr IV.SIG Q8H [facility] Rx#:[id number] Vancomycin Inj 1,250 MG In NS 262.5 / 262.5 Inj 250 ML @ 262.5 mls/hr IV. SIG Q12H [facility] Rx#:[id number] Rocephin Inj 1,000 MG In NS Inj 100 / 100 100 ML @ 200 mls/hr IV.SIG Q24H [facility] Rx#:[id number] Oral 360 / 360 800 / 800 Output: Urine 308 / 308 775 / 775 760 / 760 Other: Date of Last Bowel Movement 08/30/18 09/01/18 09/02/18 Narrative: GENERAL: Pleasant 57-year-old male, appears in not acute distress SKIN: Warm and dry. No rash.Right hand with swelling more prominent over digits HEENT: Pupils equal and round. Mucous membranes pink and moist. CARDIOVASCULAR: Regular rate and rhythm. No murmur appreciated. RESPIRATORY: No accessory muscle use. Clear to auscultation. Breath sounds equal bilaterally. GASTROINTESTINAL: Abdomen soft, nondistended, left upper quadrant tenderness to palpation. Normoactive bowel sounds x4. MUSCULOSKELETAL: No obvious deformities. Extremities without clubbing, cyanosis. Right hand edema more on fingers NEUROLOGICAL: Awake and alert. No obvious cranial nerve deficits. Moving all extremities spontaneously. Normal speech. PSYCHIATRIC: Appropriate mood and affect; insight and judgment normal. Results Labs CBC & Chem 7: 09/01/18 05:25 09/01/18 05:25 Labs: Microbiology 09/02/18 11:50 Urine - Random Urine Streptococcus pneumoniae Antigen (M - Final Presumptive negative for streptococcus pneumoniae antigen, suggesting no current or recent infection. Infection due to Streptococcus pneumoniae cannot be ruled out since the antigen present in the sample may be below the detection limit of the test. 09/02/18 11:50 Urine - Random Urine Legionella Antigen - Final Presumptive negative for Legionella pneumophila serogroup 1 antigen in urine, suggesting no recent or recurrent infection. Infection due to Legionella cannot be ruled out since other serogroups and species may cause disease, antigen may not be present in urine in early infection, and the level of antigen present in the urine may be below the detection limit of the test. 08/31/18 11:58 Sputum - Expectorated Sputum Gram Stain - Final 08/31/18 11:58 Sputum - Expectorated Sputum Sputum Culture - Final Heavy growth normal respiratory beatriz 09/01/18 14:18 Blood - Peripheral Aerobic Blood Culture - Preliminary No growth in 1 day 09/01/18 14:18 Blood - Peripheral Anaerobic Blood Culture - Preliminary No growth in 1 day 09/01/18 14:26 Blood - Peripheral Aerobic Blood Culture - Preliminary No growth in 1 day 09/01/18 14:26 Blood - Peripheral Anaerobic Blood Culture - Preliminary No growth in 1 day 09/01/18 05:33 Blood - Peripheral Aerobic Blood Culture - Preliminary No growth in 1 day 09/01/18 05:33 Blood - Peripheral Anaerobic Blood Culture - Preliminary No growth in 1 day 09/01/18 05:25 Blood - Peripheral Aerobic Blood Culture - Preliminary No growth in 1 day 09/01/18 05:25 Blood - Peripheral Anaerobic Blood Culture - Preliminary No growth in 1 day 08/29/18 22:45 Blood - Peripheral Aerobic Blood Culture - Preliminary No growth in 4 days 08/29/18 22:45 Blood - Peripheral Anaerobic Blood Culture - Preliminary No growth in 4 days 08/29/18 22:40 Blood - Peripheral Aerobic Blood Culture - Preliminary No growth in 4 days 08/29/18 22:40 Blood - Peripheral Anaerobic Blood Culture - Preliminary No growth in 4 days Imaging Imaging: Impressions Chest X-Ray 09/02/18 00:00 CONCLUSION: Developing consolidative changes left base consistent with and inflammatory process Assessment and Plan Plan 57-year-old male with no significant past medical history presents to the emergency department for evaluation of left-sided abdominal/flank pain. 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 Unknown etiology of thrombosis. -Echocardiogram showed normal EF 55-60%; however there appears to be an echolucent linear structure which may represent atheromatous plaque, calcification of the noncoronary cusp of the aortic valve, or possible artifact ; recommended to consider chest CTA for further evaluate -Check chest CTA and give IVF hydration -discussed with Dr. Jacobson -Pain control with tramadol prn (patient was very sensitive to Percocet) -Hematology consulted, appreciate recommendations, hypercoagulable and myeloproliferative workup in progress -Per hematology, may need anticoagulation depending on underlying etiology -09/01 with edema in right hand and arm, will do US doppler. Note patient reports h/o SLE Sepsis with Community-acquired pneumonia: Patient with 2-week history of cough. +leukocytosis with WBC 15K, fever Tmax 101.2, and suspected source-pneumonia -Chest x-ray reviewed, shows minimal ill-defined infiltrate in the lungs -Blood cultures with NGTD -Repeat blood cultures ordered with spike of fever today 08/31 -Check sputum culture and influenza -Give IVF hydration -Continue antibiotics with azithromycin/Rocephin for now, consider more broad spectrum if fevers/leukocytosis persist -Checking Chest CTA as above -temp 102 noted on 09/01/18 repeat blood cx, consult ID, antibiotics changed per ID recommendations. Hypertension: No history of high blood pressure, although BP has been elevated throughout admission, likely exacerbated by pain -Control pain with tramadol as needed -IV Vasotec prn -Monitor BP, add antihypertensives as needed History of gout. Will check uric acid. DVT prophylaxis: Teds/SCDs; heparin sq Discussed with the patient, nurse Progress Note: Quality VTE Deep Vein Thrombosis/Pulmonary Embolism Present on Admission: No
[2018-09-03] MEDS: Acetaminophen 325 MG Tablet PO PRN ×2 (01:01→09:34)
[2018-09-03] MEDS: Sod Chloride 0.9% Inj 1,000 ML IV.CONT SCH ×3 (01:03→21:06)
[2018-09-03] MEDS: Vancomycin Inj 1,250 MG in Sodium Chlor 0.9% Inj 250 ML IV.SIG SCH ×2 (01:22→14:43)
[2018-09-03 06:54] LABS: Glomerular Filtration Rate Greater Than 89 mL/min (>89); Uric Acid 4.7 mg/dl (2.6-7.2)
[2018-09-03] MEDS: Enoxaparin Inj 100 MG/ML Syringe SQ SCH ×2 (09:31→21:02)
[2018-09-03] MEDS: Azithromycin 250 MG Tablet PO SCH (09:31)
[2018-09-03] MEDS: Senna/Docusate Sodium 8.6/50 MG Tablet PO SCH ×2 (09:31→21:04)
--- NOTE | 2018-09-03 09:49 | P.PNONC ---
Subjective Interval history: T-max 100.9 at 5 AM this morning Patient complaining of gouty flareup in his right hand and bilateral ankles Reports he has to have help with standing Abdominal pain that brought him into the hospital is much improved Objective Vital Signs/Intake & Output: Vital Signs 09/02/18 12:00 09/02/18 16:00 09/02/18 20:00 Temperature 98.7 F 98.9 F 99.4 F Pulse Rate 91 H 92 H 84 Respiratory Rate 16 16 20 Blood Pressure 140/90 136/81 135/84 Pulse Oximetry 91 L 92 L 95 09/02/18 22:51 09/03/18 01:04 09/03/18 01:31 Temperature 99.6 F Pulse Rate 92 H Respiratory Rate 18 20 18 Blood Pressure 162/102 H Pulse Oximetry 96 09/03/18 05:35 09/03/18 06:02 Temperature 100.9 F H Pulse Rate 87 Respiratory Rate 18 18 Blood Pressure 179/89 H Pulse Oximetry Intake & Output 09/02/18 09/03/18 09/03/18 18:59 06:59 18:59 Intake Total 2262.5 / 2262.5 2842.5 / 2842.5 Output Total 760 / 760 400 / 400 Balance 1502.5 / 1502.5 2442.5 / 2442.5 Weight 205 lb 0.478 oz Intake: IV 1462.5 / 1462.5 2362.5 / 2362.5 NS Inj 1,000 ML @ 100 mls/hr IV 1000 / 1000 2000 / 2000 .CONT .Q10H [facility] Rx#:[id number] Maxipime Inj 2,000 MG In NS Inj 200 / 200 100 / 100 100 ML @ 200 mls/hr IV.SIG Q8H [facility] Rx#:[id number] Vancomycin Inj 1,250 MG In NS 262.5 / 262.5 262.5 / 262.5 Inj 250 ML @ 262.5 mls/hr IV. SIG Q12H [facility] Rx#:[id number] Oral 800 / 800 480 / 480 Output: Urine 760 / 760 400 / 400 Other: Date of Last Bowel Movement 09/02/18 09/01/18 Result Diagrams: 09/01/18 05:25 09/03/18 05:31 Laboratory Results: Laboratory Results - last 24 hr 08/31/18 09/02/1809/02/19 11:39 09:42 09:42 Thrombin Time 15 Lupus Anticoagulant LA PTT Screen 42 H dRVVT Screen 51 H LA dRVVT Confirm Negative dRVVT Mix ND Hexagonal Phase Confirm Positive A Protein C Activity 89 Protein S Activity 141 Antithrombin III Activ 108 Factor V Leiden Mutat Negative Factor V Leiden Interp . Fact V Leiden Review By See below Creatinine Estimated GFR Uric Acid C-Reactive Protein 25.10 H Procalcitonin 0.26 H Beta-2-GPI IgG Ab Less than 9.0 Beta-2-GPI IgA Ab Less than 9.0 Beta-2-GPI IgM Ab Less than 9.0 Phosphatidylserine IgG Less than 10.0 Phosphatidylserine IgA Less than 20.0 Phosphatidylserine IgM Less than 25.0 Anti-Cardiolipin IgG Ab Less than 14.0 Anti-Cardiolipin IgA Ab Less than 11.0 Anti-Cardiolipin IgM Ab Less than 12.0 Hepatitis A IgM Ab Nonreactive Hep Bs Antigen Nonreactive Hep B Core IgM Ab Nonreactive Hep C IgG Ab Nonreactive HIV 1&2 Ab/P24 Ag 4thGn Nonreactive Prothrombin [id number] Mut 09/03/18 05:31 Thrombin Time Lupus Anticoagulant LA PTT Screen dRVVT Screen LA dRVVT Confirm dRVVT Mix Hexagonal Phase Confirm Protein C Activity Protein S Activity Antithrombin III Activ Factor V Leiden Mutat Factor V Leiden Interp Fact V Leiden Review By Creatinine 0.69 Estimated GFR Greater than 89 Uric Acid 4.7 C-Reactive Protein Procalcitonin Beta-2-GPI IgG Ab Beta-2-GPI IgA Ab Beta-2-GPI IgM Ab Phosphatidylserine IgG Phosphatidylserine IgA Phosphatidylserine IgM Anti-Cardiolipin IgG Ab Anti-Cardiolipin IgA Ab Anti-Cardiolipin IgM Ab Hepatitis A IgM Ab Hep Bs Antigen Hep B Core IgM Ab Hep C IgG Ab HIV 1&2 Ab/P24 Ag 4thGn Prothrombin [id number] Mut Culture Results: Microbiology 09/02/18 11:50 Streptococcus pneumoniae Antigen (M - Final Urine - Random Urine Presumptive negative for streptococcus pneumoniae antigen, suggesting no current or recent infection. Infection due to Streptococcus pneumoniae cannot be ruled out since the antigen present in the sample may be below the detection limit of the test. 09/02/18 11:50 Legionella Antigen - Final Urine - Random Urine Presumptive negative for Legionella pneumophila serogroup 1 antigen in urine, suggesting no recent or recurrent infection. Infection due to Legionella cannot be ruled out since other serogroups and species may cause disease, antigen may not be present in urine in early infection, and the level of antigen present in the urine may be below the detection limit of the test. 08/31/18 11:58 Gram Stain - Final Sputum - Expectorated Sputum Sputum Culture - Final Heavy growth normal respiratory beatriz 09/01/18 14:18 Aerobic Blood Culture - Preliminary Blood - Peripheral No growth in 1 day Anaerobic Blood Culture - Preliminary No growth in 1 day 09/01/18 14:26 Aerobic Blood Culture - Preliminary Blood - Peripheral No growth in 1 day Anaerobic Blood Culture - Preliminary No growth in 1 day 09/01/18 05:33 Aerobic Blood Culture - Preliminary Blood - Peripheral No growth in 1 day Anaerobic Blood Culture - Preliminary No growth in 1 day 09/01/18 05:25 Aerobic Blood Culture - Preliminary Blood - Peripheral No growth in 1 day Anaerobic Blood Culture - Preliminary No growth in 1 day 08/29/18 22:45 Aerobic Blood Culture - Preliminary Blood - Peripheral No growth in 4 days Anaerobic Blood Culture - Preliminary No growth in 4 days 08/29/18 22:40 Aerobic Blood Culture - Preliminary Blood - Peripheral No growth in 4 days Anaerobic Blood Culture - Preliminary No growth in 4 days 08/31/18 18:00 Influenza Types A,B Antigen - Final Nasal Wash Negative for FLU A and B antigen Infection due to influenza A or B cannot be ruled out since the antigen present in the sample may be below the detection limit of the test. Medications: Active Medications Generic Name Dose Route Start Last Admin Trade Name Freq PRN Reason Stop Dose Admin Acetaminophen 650 mg 08/30/18 11:41 09/03/18 09:34 Tylenol PO 650 mg Q4H PRN Administration headache/fever/pain 1-4 Azithromycin 500 mg 08/30/18 22:00 09/03/18 09:31 Zithromax PO 500 mg DAILY [facility] Administration Enalaprilat 1.25 mg 08/30/18 16:00 09/03/18 01:10 Vasotec Inj IV.PUSH 1.25 mg Q6H PRN Administration SBP> OR = 180, DBP> OR = 100 Enoxaparin Sodium 90 mg 09/01/18 21:00 09/03/18 09:31 Lovenox Inj SQ 90 mg Q12HR [facility] Administration Sodium Chloride 1,000 mls @ 100 mls/hr 08/31/18 17:45 09/03/18 06:43 Ns Inj IV.CONT Not Given .Q10H [facility] Cefepime HCl 2,000 mg/ Sodium 100 mls @ 200 mls/hr 09/02/18 09:00 09/03/18 09 :24 Chloride IV.SIG 200 mls/hr Q8H [facility] Administration Vancomycin HCl 1,250 mg/ 262.5 mls @ 262.5 mls/hr 09/02/18 13:00 09/03/18 02: 25 Sodium Chloride IV.SIG Infused Q12H [facility] Infusion Senna/Docusate Sodium 1 tab 08/30/18 09:00 09/03/18 09:31 Valery-Colace PO Not Given BID [facility] Sodium Chloride 2 ml 08/30/18 09:00 09/02/18 20:28 Ns Flush IV.FLUSH Not Given BID [facility] Tramadol HCl 50 mg 08/30/18 11:42 09/03/18 05:32 Ultram PO 50 mg Q6H PRN Administration pain scale 5 to 10 Objective Remarks: GENERAL: Well-nourished, well-developed male patient, no acute distress. SKIN: Warm and dry. HEAD: Normocephalic. EYES: No scleral icterus. No injection or drainage. NECK: Supple, trachea midline. CARDIOVASCULAR: Regular rate and rhythm without murmurs. RESPIRATORY: Anterior breath sounds clear, equal bilaterally. No accessory muscle use. GASTROINTESTINAL: Abdomen soft, tender LUQ, nondistended. EXTREMITIES: No cyanosis. Right hand with erythema and swelling MUSCULOSKELETAL: Adequate muscle tone. NEUROLOGICAL: No obvious focal deficit. Awake, alert, and oriented x3. Assessment/Plan - Plan 1. 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 Upon hospital discharge would place on apixaban 10 mg PO BID x 7 days followed by apixaban 5 mg PO BID. Hypercoagulable workup appears negative. 2. Myeloproliferative workup pending. 3. The patient is most concerned with gout. He reports this feels like classic gout that he has had off-and-on since he was in his 20s. He reports indomethacin usually works the best. Unfortunately NSAID based medication would not be most appropriate while he is being anticoagulated. 4. Nonocclusive thrombus noted in the right hand from previous IV site. Continue Lovenox. Can apply warm compress as well. - Attending Statement The exam, history, and the medical decision-making described in the above note were completed with the assistance of the mid-level provider. I reviewed and agree with the findings presented. I attest that I had a [id number] encounter with the patient on the same day, and personally performed and documented my assessment and findings in the medical record. The patient now has acute swelling of the entire right hand primarily the dorsum of the wrist and metacarpals. The area is exquisitely tender. He tells me that he had gout many years ago. I am not sure if this is gout but it is clearly an acute unexpected painful swelling. In addition we do not have a good explanation for the splenic thrombosis. It certainly could be related to an infection. Another oddity is the fact that he has a consistent monocytosis which is not well explained. This raises the possibility of a myeloproliferative disorder but the degree of elevation is modest. The CBC and platelet count will be repeated. If there is a persistent elevation over time, he will require a bone marrow aspirate and biopsy. 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 In spite of an increased risk of bleeding the patient will be treated with Indocin 50 p.o. 3 times daily and Protonix 40 mg daily. This will be a brief course of Indocin. He will have a YOBANI, rheumatoid factor, and uric acid level.
--- NOTE | 2018-09-03 17:17 | P.PNIM ---
Subjective Interval history: The patient was seen earlier today. He is weak, per nurse he needs 3 patient consult PT for evaluation. The patient denies any cough. He complains of fever or chills. No nausea or vomiting. Eating fairly well. Physical Exam Vital signs: Vital Signs 09/02/18 20:00 09/02/18 22:51 09/03/18 01:04 Temperature 99.4 F 99.6 F Pulse Rate 84 92 H Respiratory Rate 20 18 20 Blood Pressure 135/84 162/102 H Pulse Oximetry 95 96 09/03/18 01:31 09/03/18 05:35 09/03/18 06:02 Temperature 100.9 F H Pulse Rate 87 Respiratory Rate 18 18 18 Blood Pressure 179/89 H Pulse Oximetry 09/03/18 12:00 Temperature 100.7 F H Pulse Rate 96 H Respiratory Rate 20 Blood Pressure 142/77 H Pulse Oximetry 97 Intake & Output 09/02/18 09/03/18 09/03/18 18:59 06:59 18:59 Intake Total 2262.5 / 2262.5 2842.5 / 2842.5 100 / 100 Output Total 760 / 760 400 / 400 Balance 1502.5 / 1502.5 2442.5 / 2442.5 100 / 100 Weight 93 kg Intake: IV 1462.5 / 1462.5 2362.5 / 2362.5 100 / 100 NS Inj 1,000 ML @ 100 mls/hr IV 1000 / 1000 2000 / 1999 .CONT .Q10H [facility] Rx#:[id number] Maxipime Inj 2,000 MG In NS Inj 200 / 200 100 / 100 100 / 100 100 ML @ 200 mls/hr IV.SIG Q8H [facility] Rx#:[id number] Vancomycin Inj 1,250 MG In NS 262.5 / 262.5 262.5 / 262.5 Inj 250 ML @ 262.5 mls/hr IV. SIG Q12H [facility] Rx#:[id number] Oral 800 / 800 480 / 480 Output: Urine 760 / 760 400 / 400 Other: Date of Last Bowel Movement 09/02/18 09/01/18 Narrative: GENERAL: Pleasant 57-year-old male, appears in not acute distress SKIN: Warm and dry. No rash.Right hand with swelling more prominent over digits HEENT: Pupils equal and round. Mucous membranes pink and moist. CARDIOVASCULAR: Regular rate and rhythm. No murmur appreciated. RESPIRATORY: No accessory muscle use. Clear to auscultation. Breath sounds equal bilaterally. GASTROINTESTINAL: Abdomen soft, nondistended, left upper quadrant tenderness to palpation. Normoactive bowel sounds x4. MUSCULOSKELETAL: No obvious deformities. Extremities without clubbing, cyanosis. Right hand edema more on fingers NEUROLOGICAL: Awake and alert. No obvious cranial nerve deficits. Moving all extremities spontaneously. Normal speech. PSYCHIATRIC: Appropriate mood and affect; insight and judgment normal. Results Labs CBC & Chem 7: 09/01/18 05:25 09/03/18 05:31 Labs: Microbiology 09/01/18 14:18 Blood - Peripheral Aerobic Blood Culture - Preliminary No growth in 2 days 09/01/18 14:18 Blood - Peripheral Anaerobic Blood Culture - Preliminary No growth in 2 days 09/01/18 14:26 Blood - Peripheral Aerobic Blood Culture - Preliminary No growth in 2 days 09/01/18 14:26 Blood - Peripheral Anaerobic Blood Culture - Preliminary No growth in 2 days 09/01/18 05:33 Blood - Peripheral Aerobic Blood Culture - Preliminary No growth in 2 days 09/01/18 05:33 Blood - Peripheral Anaerobic Blood Culture - Preliminary No growth in 2 days 09/01/18 05:25 Blood - Peripheral Aerobic Blood Culture - Preliminary No growth in 2 days 09/01/18 05:25 Blood - Peripheral Anaerobic Blood Culture - Preliminary No growth in 2 days 08/29/18 22:45 Blood - Peripheral Aerobic Blood Culture - Final No growth in 5 days 08/29/18 22:45 Blood - Peripheral Anaerobic Blood Culture - Final No growth in 5 days 08/29/18 22:40 Blood - Peripheral Aerobic Blood Culture - Final No growth in 5 days 08/29/18 22:40 Blood - Peripheral Anaerobic Blood Culture - Final No growth in 5 days 09/02/18 11:50 Urine - Random Urine Streptococcus pneumoniae Antigen (M - Final Presumptive negative for streptococcus pneumoniae antigen, suggesting no current or recent infection. Infection due to Streptococcus pneumoniae cannot be ruled out since the antigen present in the sample may be below the detection limit of the test. 09/02/18 11:50 Urine - Random Urine Legionella Antigen - Final Presumptive negative for Legionella pneumophila serogroup 1 antigen in urine, suggesting no recent or recurrent infection. Infection due to Legionella cannot be ruled out since other serogroups and species may cause disease, antigen may not be present in urine in early infection, and the level of antigen present in the urine may be below the detection limit of the test. Assessment and Plan Plan 57-year-old male with no significant past medical history presents to the emergency department for evaluation of left-sided abdominal/flank pain. 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 Unknown etiology of thrombosis. -Echocardiogram showed normal EF 55-60%; however there appears to be an echolucent linear structure which may represent atheromatous plaque, calcification of the noncoronary cusp of the aortic valve, or possible artifact ; recommended to consider chest CTA for further evaluation -Check chest CTA and give IVF hydration -discussed with Dr. Jacobson -Pain control with tramadol prn (patient was very sensitive to Percocet) -Hematology consulted, appreciate recommendations, hypercoagulable and myeloproliferative workup in progress -Per hematology, continue while inpatient anticoagulation with Lovenox, can discharge on Eliquis. -09/01 with edema in right hand and arm, US doppler with superficial thrombus. Note patient reports h/o SLE Sepsis with Community-acquired pneumonia: Patient with 2-week history of cough. +leukocytosis with WBC 15K, fever Tmax 101.2, and suspected source-pneumonia. The patient is with splenic infarct, bilateral pneumonia with possible septic emboli. Plan for echo with echodensity to rule out probable endocarditis. Also rule out noninfectious causes of thromboembolic diseases.. Check HIV screen and PCR. ID following -Chest x-ray reviewed, shows minimal ill-defined infiltrate in the lungs -Blood cultures with NGTD -Repeat blood cultures ordered with spike of fever today 08/31 -Check sputum culture and influenza -Give IVF hydration -temp 102 noted on 09/01/18 repeat blood cx, consult ID, antibiotics changed per ID recommendations, continue azithromycin and started on cefepime IV Hypertension: No history of high blood pressure, although BP has been elevated throughout admission, likely exacerbated by pain -Control pain with tramadol as needed -IV Vasotec prn -Monitor BP, add antihypertensives as needed History of gout. Will check uric acid. DVT prophylaxis: Teds/SCDs; heparin sq Discussed with the patient, nurse Progress Note: Quality VTE Deep Vein Thrombosis/Pulmonary Embolism Present on Admission: No
[2018-09-04] MEDS ORDERED: Pharmacy Ordered Lab Info OTHER ONE (00:45)
[2018-09-04] MEDS: Vancomycin Inj 1,250 MG in Sodium Chlor 0.9% Inj 250 ML IV.SIG SCH (02:37)
[2018-09-04] MEDS: Azithromycin 250 MG Tablet PO SCH (09:11)
[2018-09-04] MEDS: Enoxaparin Inj 100 MG/ML Syringe SQ SCH ×2 (09:11→20:44)
[2018-09-04] MEDS: Senna/Docusate Sodium 8.6/50 MG Tablet PO SCH ×2 (09:12→20:44)
--- NOTE | 2018-09-04 09:49 | P.PNONC ---
Subjective Interval history: Afebrile Right hand is significantly improved He is able to close his fingers and freely move his hand Hoping to go home today No other acute complaints Objective Vital Signs/Intake & Output: Vital Signs 09/03/18 12:00 09/03/18 16:00 09/03/18 20:00 Temperature 100.7 F H 99.4 F 97.7 F Pulse Rate 96 H 98 H 115 H Respiratory Rate 20 20 Blood Pressure 142/77 H 145/78 H 151/61 H Pulse Oximetry 97 98 95 09/04/18 00:00 09/04/18 04:00 09/04/18 09:08 Temperature 97.6 F 98.1 F 98.8 F Pulse Rate 94 H 77 88 Respiratory Rate 18 18 16 Blood Pressure 135/90 130/80 144/85 H Pulse Oximetry 94 L 96 97 Intake & Output 09/03/18 09/04/18 09/04/18 18:59 06:59 18:59 Intake Total 2022.5 / 2022.5 602.5 / 602.5 Output Total 2350 / 2350 Balance 2022.5 / 2022.5 -1747.5 / -1747.5 Weight 202 lb 13.204 oz Intake: IV 1462.5 / 1462.5 362.5 / 362.5 NS Inj 1,000 ML @ 100 mls/hr IV 1000 / 1000 .CONT .Q10H [facility] Rx#:[id number] Maxipime Inj 2,000 MG In NS Inj 200 / 200 100 / 100 100 ML @ 200 mls/hr IV.SIG Q8H [facility] Rx#:[id number] Vancomycin Inj 1,250 MG In NS 262.5 / 262.5 262.5 / 262.5 Inj 250 ML @ 262.5 mls/hr IV. SIG Q12H [facility] Rx#:[id number] Oral 560 / 560 240 / 240 Output: Urine 2350 / 2350 Other: # Voids 1 Date of Last Bowel Movement 09/03/18 Result Diagrams: 09/04/18 09:31 09/03/18 05:31 Laboratory Results: Laboratory Results - last 24 hr 09/04/18 01:10 Vancomycin Trough 7.5 Culture Results: Microbiology 09/01/18 14:18 Aerobic Blood Culture - Preliminary Blood - Peripheral No growth in 2 days Anaerobic Blood Culture - Preliminary No growth in 2 days 09/01/18 14:26 Aerobic Blood Culture - Preliminary Blood - Peripheral No growth in 2 days Anaerobic Blood Culture - Preliminary No growth in 2 days 09/01/18 05:33 Aerobic Blood Culture - Preliminary Blood - Peripheral No growth in 2 days Anaerobic Blood Culture - Preliminary No growth in 2 days 09/01/18 05:25 Aerobic Blood Culture - Preliminary Blood - Peripheral No growth in 2 days Anaerobic Blood Culture - Preliminary No growth in 2 days 08/29/18 22:45 Aerobic Blood Culture - Final Blood - Peripheral No growth in 5 days Anaerobic Blood Culture - Final No growth in 5 days 08/29/18 22:40 Aerobic Blood Culture - Final Blood - Peripheral No growth in 5 days Anaerobic Blood Culture - Final No growth in 5 days 09/02/18 11:50 Streptococcus pneumoniae Antigen (M - Final Urine - Random Urine Presumptive negative for streptococcus pneumoniae antigen, suggesting no current or recent infection. Infection due to Streptococcus pneumoniae cannot be ruled out since the antigen present in the sample may be below the detection limit of the test. 09/02/18 11:50 Legionella Antigen - Final Urine - Random Urine Presumptive negative for Legionella pneumophila serogroup 1 antigen in urine, suggesting no recent or recurrent infection. Infection due to Legionella cannot be ruled out since other serogroups and species may cause disease, antigen may not be present in urine in early infection, and the level of antigen present in the urine may be below the detection limit of the test. 08/31/18 11:58 Gram Stain - Final Sputum - Expectorated Sputum Sputum Culture - Final Heavy growth normal respiratory beatriz Medications: Active Medications Generic Name Dose Route Start Last Admin Trade Name Freq PRN Reason Stop Dose Admin Acetaminophen 650 mg 08/30/18 11:41 09/03/18 09:34 Tylenol PO 650 mg Q4H PRN Administration headache/fever/pain 1-4 Azithromycin 500 mg 08/30/18 22:00 09/04/18 09:11 Zithromax PO 500 mg DAILY [facility] Administration Enalaprilat 1.25 mg 08/30/18 16:00 09/03/18 01:10 Vasotec Inj IV.PUSH 1.25 mg Q6H PRN Administration SBP> OR = 180, DBP> OR = 100 Enoxaparin Sodium 90 mg 09/01/18 21:00 09/04/18 09:11 Lovenox Inj SQ 90 mg Q12HR [facility] Administration Sodium Chloride 1,000 mls @ 100 mls/hr 08/31/18 17:45 09/03/18 21:06 Ns Inj IV.CONT 100 mls/hr .Q10H [facility] Administration Cefepime HCl 2,000 mg/ Sodium 100 mls @ 200 mls/hr 09/02/18 09:00 09/04/18 09 :10 Chloride IV.SIG 100 mls/hr Q8H [facility] Administration Indomethacin 50 mg 09/03/18 15:00 09/04/18 05:09 Indocin PO 50 mg Q8HR [facility] Administration Pantoprazole Sodium 40 mg 09/03/18 14:30 09/04/18 09:11 Protonix PO 40 mg DAILY [facility] Administration Senna/Docusate Sodium 1 tab 08/30/18 09:00 09/04/18 09:12 Valery-Colace PO 1 tab BID [facility] Administration Sodium Chloride 2 ml 08/30/18 09:00 09/03/18 21:02 Ns Flush IV.FLUSH Not Given BID [facility] Tramadol HCl 50 mg 08/30/18 11:42 09/04/18 09:12 Ultram PO 50 mg Q6H PRN Administration pain scale 5 to 10 Objective Remarks: GENERAL: Well-nourished, well-developed male patient, no acute distress. SKIN: Warm and dry. HEAD: Normocephalic. EYES: No scleral icterus. No injection or drainage. NECK: Supple, trachea midline. CARDIOVASCULAR: Regular rate and rhythm without murmurs. RESPIRATORY: Anterior breath sounds clear, equal bilaterally. No accessory muscle use. GASTROINTESTINAL: Abdomen soft, tender LUQ, nondistended. EXTREMITIES: No cyanosis. Right hand with previous significant swelling and erythema incredibly improved overnight MUSCULOSKELETAL: Adequate muscle tone. NEUROLOGICAL: No obvious focal deficit. Awake, alert, and oriented x3. Assessment/Plan - Plan 1. After beginning indomethacin the patient's right hand is incredibly improved. He reports his urine output increased yesterday after starting the indomethacin. He has not had any new fevers. 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 He will need follow-up in the clinic once discharged to rule out myeloproliferative disorder. CBC pending today. - Attending Statement The exam, history, and the medical decision-making described in the above note were completed with the assistance of the mid-level provider. I reviewed and agree with the findings presented. I attest that I had a [id number] encounter with the patient on the same day, and personally performed and documented my assessment and findings in the medical record. The hand is better but not all better. He is responding to the Indocin. He still has a persistent monocytosis. I am concerned that he has a myeloproliferative disorder. If this does not resolve he will need a bone marrow aspirate biopsy, flow cytometry and chromosomes. Tomorrow Dr. Wilder will return and I believe that he could be converted from Lovenox to a Xa inhibitor.
[2018-09-04 09:50] LABS: Baso # (Auto) 0.1 th/mm3 (0.0-0.2); Baso % (Auto) 0.7 % (0.0-2.0); Eos # (Auto) 0.2 th/mm3 (0.0-0.4); Hematocrit 33.2 % (39.0-51.0); Hemoglobin 11.4 gm/dL (13.0-17.0); Lymph # (Auto) 1.3 th/mm3 (1.0-4.8); Lymph % (Auto) 7.7 % (9.0-44.0); Mean Corpuscular HGB Conc 34.3 % (32.0-36.0); Mean Corpuscular Volume 87.5 fL (80.0-100.0); Mean Platelet Volume 7.3 fL (7.0-11.0); Mono # (Auto) 2.3 th/mm3 (0.0-0.9); Mono % (Auto) 13.1 % (0.0-8.0); Neut # (Auto) 13.4 th/mm3 (1.8-7.7); Neut % (Auto) 77.5 % (16.0-70.0); Platelet Count 600 th/mm3 (150-450); Red Blood Count 3.79 mil/mm3 (4.50-5.90); Red Cell Distribution Width 12.4 % (11.6-17.2); White Blood Count 17.2 th/mm3 (4.0-11.0)
[2018-09-04 10:10] LABS: Uric Acid 4.7 mg/dl (2.6-7.2)
[2018-09-04 10:15] LABS: Platelet Morphology Normal (Normal)
--- NOTE | 2018-09-04 13:32 | P.PNIM ---
Subjective Interval history: The patient is in bed he appears tired. Says had a very good urine output overnight and in the morning swelling in his right hand improved and also not much pain. He was able to ambulate with physical therapy. Physical therapy however recommends home with home health. Patient without fevers overnight. Feels a little bit improving today. Some cough. Minimal abdominal pain. No nausea or vomiting. Physical Exam Vital signs: Vital Signs 09/03/18 16:00 09/03/18 20:00 09/04/18 00:00 Temperature 99.4 F 97.7 F 97.6 F Pulse Rate 98 H 115 H 94 H Respiratory Rate 20 18 Blood Pressure 145/78 H 151/61 H 135/90 Pulse Oximetry 98 95 94 L 09/04/18 04:00 09/04/18 09:08 09/04/18 12:00 Temperature 98.1 F 98.8 F 98.2 F Pulse Rate 77 88 88 Respiratory Rate 18 16 16 Blood Pressure 130/80 144/85 H 124/84 Pulse Oximetry 96 97 98 Intake & Output 09/03/18 09/04/18 09/04/18 18:59 06:59 18:59 Intake Total 2022.5 / 2022.5 602.5 / 602.5 100 / 100 Output Total 2350 / 2350 Balance 2022.5 / 2022.5 -1747.5 / -1747.5 100 / 100 Weight 92 kg Intake: IV 1462.5 / 1462.5 362.5 / 362.5 100 / 100 NS Inj 1,000 ML @ 100 mls/hr IV 1000 / 1000 .CONT .Q10H [facility] Rx#:[id number] Maxipime Inj 2,000 MG In NS Inj 200 / 200 100 / 100 100 / 100 100 ML @ 200 mls/hr IV.SIG Q8H [facility] Rx#:[id number] Vancomycin Inj 1,250 MG In NS 262.5 / 262.5 262.5 / 262.5 Inj 250 ML @ 262.5 mls/hr IV. SIG Q12H [facility] Rx#:[id number] Oral 560 / 560 240 / 240 Output: Urine 2350 / 2350 Other: # Voids 1 Date of Last Bowel Movement 09/03/18 Narrative: GENERAL: Pleasant 57-year-old male, appears in not acute distress SKIN: Warm and dry. No rash.Right hand with swelling more prominent over digits HEENT: Pupils equal and round. Mucous membranes pink and moist. CARDIOVASCULAR: Regular rate and rhythm. No murmur appreciated. RESPIRATORY: No accessory muscle use. Clear to auscultation. Breath sounds equal bilaterally. GASTROINTESTINAL: Abdomen soft, nondistended, left upper quadrant tenderness to palpation. Normoactive bowel sounds x4. MUSCULOSKELETAL: No obvious deformities. Extremities without clubbing, cyanosis. Right hand edema more on fingers NEUROLOGICAL: Awake and alert. No obvious cranial nerve deficits. Moving all extremities spontaneously. Normal speech. PSYCHIATRIC: Appropriate mood and affect; insight and judgment normal. Results Labs CBC & Chem 7: 09/04/18 09:31 09/03/18 05:31 Labs: Microbiology 09/03/18 12:00 Blood - Peripheral Aerobic Blood Culture - Preliminary No growth in 1 day 09/03/18 12:00 Blood - Peripheral Anaerobic Blood Culture - Preliminary No growth in 1 day 09/03/18 12:05 Blood - Peripheral Aerobic Blood Culture - Preliminary No growth in 1 day 09/03/18 12:05 Blood - Peripheral Anaerobic Blood Culture - Preliminary No growth in 1 day 09/01/18 14:18 Blood - Peripheral Aerobic Blood Culture - Preliminary No growth in 3 days 09/01/18 14:18 Blood - Peripheral Anaerobic Blood Culture - Preliminary No growth in 3 days 09/01/18 14:26 Blood - Peripheral Aerobic Blood Culture - Preliminary No growth in 3 days 09/01/18 14:26 Blood - Peripheral Anaerobic Blood Culture - Preliminary No growth in 3 days 09/01/18 05:33 Blood - Peripheral Aerobic Blood Culture - Preliminary No growth in 3 days 09/01/18 05:33 Blood - Peripheral Anaerobic Blood Culture - Preliminary No growth in 3 days 09/01/18 05:25 Blood - Peripheral Aerobic Blood Culture - Preliminary No growth in 3 days 09/01/18 05:25 Blood - Peripheral Anaerobic Blood Culture - Preliminary No growth in 3 days 08/29/18 22:45 Blood - Peripheral Aerobic Blood Culture - Final No growth in 5 days 08/29/18 22:45 Blood - Peripheral Anaerobic Blood Culture - Final No growth in 5 days 08/29/18 22:40 Blood - Peripheral Aerobic Blood Culture - Final No growth in 5 days 08/29/18 22:40 Blood - Peripheral Anaerobic Blood Culture - Final No growth in 5 days Assessment and Plan Plan 57-year-old male with no significant past medical history presents to the emergency department for evaluation of left-sided abdominal/flank pain. 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 Unknown etiology of thrombosis. -Echocardiogram showed normal EF 55-60%; however there appears to be an echolucent linear structure which may represent atheromatous plaque, calcification of the noncoronary cusp of the aortic valve, or possible artifact ; recommended to consider chest CTA for further evaluation -Check chest CTA and give IVF hydration -discussed with Dr. Jacobson -Pain control with tramadol prn (patient was very sensitive to Percocet) -Hematology consulted, appreciate recommendations, hypercoagulable and myeloproliferative workup in progress -Per hematology, continue while inpatient anticoagulation with Lovenox, can discharge on Eliquis. -09/01 with edema in right hand and arm, US doppler with superficial thrombus. Note patient reports h/o SLE -Oncology Dr. Ledesma recommends bone marrow biopsy to rule out myelodysplastic syndrome Sepsis with Community-acquired pneumonia: Patient with 2-week history of cough. +leukocytosis with WBC 15K, fever Tmax 101.2, and suspected source-pneumonia. The patient is with splenic infarct, bilateral pneumonia with possible septic emboli. Plan for echo with echodensity to rule out probable endocarditis. Also rule out noninfectious causes of thromboembolic diseases.. Check HIV screen and PCR. ID following -Chest x-ray reviewed, shows minimal ill-defined infiltrate in the lungs -Blood cultures with NGTD -Repeat blood cultures ordered with spike of fever today 08/31 -Check sputum culture and influenza -Give IVF hydration -temp 102 noted on 09/01/18 repeat blood cx, consult ID, antibiotics changed per ID recommendations, continue azithromycin and started on cefepime IV Hypertension: No history of high blood pressure, although BP has been elevated throughout admission, likely exacerbated by pain -Control pain with tramadol as needed -IV Vasotec prn -Monitor BP, add antihypertensives as needed History of gout. Will check uric acid. DVT prophylaxis: Teds/SCDs; lovenox Discussed with the patient, nurse Progress Note: Quality VTE Deep Vein Thrombosis/Pulmonary Embolism Present on Admission: No
[2018-09-04] MEDS: Sod Chloride 0.9% Inj 1,000 ML IV.CONT SCH ×3 (14:51→23:04)
[2018-09-04] MEDS: Vancomycin Inj 1,500 MG in Sodium Chlor 0.9% Inj 500 ML IV.SIG SCH (15:00)
[2018-09-04] MEDS: Acetaminophen 325 MG Tablet PO PRN (20:43)
[2018-09-05] MEDS: Vancomycin Inj 1,500 MG in Sodium Chlor 0.9% Inj 500 ML IV.SIG SCH ×2 (03:06→15:18)
[2018-09-05 06:40] LABS: Baso # (Auto) 0.1 th/mm3 (0.0-0.2); Baso % (Auto) 0.4 % (0.0-2.0); Eos # (Auto) 0.3 th/mm3 (0.0-0.4); Hematocrit 30.1 % (39.0-51.0); Hemoglobin 10.5 gm/dL (13.0-17.0); Lymph # (Auto) 1.1 th/mm3 (1.0-4.8); Lymph % (Auto) 8.3 % (9.0-44.0); Mean Corpuscular HGB Conc 34.9 % (32.0-36.0); Mean Corpuscular Hemoglobin 30.5 pg (27.0-34.0); Mean Corpuscular Volume 87.5 fL (80.0-100.0); Mean Platelet Volume 7.2 fL (7.0-11.0); Mono % (Auto) 14.7 % (0.0-8.0); Neut # (Auto) 10.3 th/mm3 (1.8-7.7); Neut % (Auto) 74.6 % (16.0-70.0); Platelet Count 615 th/mm3 (150-450); Red Blood Count 3.44 mil/mm3 (4.50-5.90); Red Cell Distribution Width 12.8 % (11.6-17.2); White Blood Count 13.8 th/mm3 (4.0-11.0)
[2018-09-05] MEDS: Azithromycin 250 MG Tablet PO SCH (09:20)
[2018-09-05] MEDS: Senna/Docusate Sodium 8.6/50 MG Tablet PO SCH ×2 (09:20→20:03)
[2018-09-05] MEDS: Enoxaparin Inj 100 MG/ML Syringe SQ SCH (09:21)
[2018-09-05] MEDS: Acetaminophen 325 MG Tablet PO PRN ×3 (09:27→21:48)
--- NOTE | 2018-09-05 13:25 | P.PNONC ---
Subjective Interval history: Patient sitting up in bed eating lunch. In no acute distress. Patient reports that the pain in his right hand/wrist and bilateral feet have somewhat improved since the initiation of indomethacin. Objective Vital Signs/Intake & Output: Vital Signs 09/04/18 15:51 09/04/18 20:00 09/05/18 00:00 Temperature 97.8 F 98.4 F 98.2 F Pulse Rate 80 94 H 92 H Respiratory Rate 18 18 18 Blood Pressure 124/84 165/98 H 146/92 H Pulse Oximetry 96 98 97 09/05/18 04:00 09/05/18 09:25 Temperature 98.2 F 98.2 F Pulse Rate 83 91 H Respiratory Rate 18 16 Blood Pressure 136/82 153/83 H Pulse Oximetry 97 95 Intake & Output 09/04/18 09/05/18 09/05/18 18:59 06:59 18:59 Intake Total 1100 / 1100 2470 / 2470 100 / 100 Output Total 800 / 800 400 / 400 Balance 300 / 300 2070 / 2070 100 / 100 Weight 94 kg Intake: IV 1100 / 1100 2230 / 2230 100 / 100 NS Inj 1,000 ML @ 100 mls/hr IV 1000 / 1000 1000 / 1000 .CONT .Q10H [facility] Rx#:[id number] Maxipime Inj 2,000 MG In NS Inj 100 / 100 200 / 200 100 / 100 100 ML @ 200 mls/hr IV.SIG Q8H [facility] Rx#:[id number] Vancomycin Inj 1,500 MG In NS 1030 / 1030 Inj 500 ML @ 262.5 mls/hr IV. SIG Q12H [facility] Rx#:[id number] Oral 240 / 240 Output: Urine 800 / 800 400 / 400 Other: Date of Last Bowel Movement 09/04/18 09/04/18 Result Diagrams: 09/05/18 06:13 09/03/18 05:31 Laboratory Results: Laboratory Results - last 24 hr 09/05/18 06:13 WBC 13.8 H RBC 3.44 L Hgb 10.5 L Hct 30.1 L MCV 87.5 MCH 30.5 MCHC 34.9 RDW 12.8 Plt Count 615 H MPV 7.2 Neut % (Auto) 74.6 H Lymph % (Auto) 8.3 L [place] % (Auto) 14.7 H Eos % (Auto) 2.0 Baso % (Auto) 0.4 Neut # (Auto) 10.3 H Lymph # (Auto) 1.1 [place] # (Auto) 2.0 H Eos # (Auto) 0.3 Baso # (Auto) 0.1 WBC Differential . Differential Comment Auto diff final Culture Results: Microbiology 09/03/18 12:00 Aerobic Blood Culture - Preliminary Blood - Peripheral No growth in 2 days Anaerobic Blood Culture - Preliminary No growth in 2 days 09/03/18 12:05 Aerobic Blood Culture - Preliminary Blood - Peripheral No growth in 2 days Anaerobic Blood Culture - Preliminary No growth in 2 days 09/01/18 14:18 Aerobic Blood Culture - Preliminary Blood - Peripheral No growth in 4 days Anaerobic Blood Culture - Preliminary No growth in 4 days 09/01/18 14:26 Aerobic Blood Culture - Preliminary Blood - Peripheral No growth in 4 days Anaerobic Blood Culture - Preliminary No growth in 4 days 09/01/18 05:33 Aerobic Blood Culture - Preliminary Blood - Peripheral No growth in 4 days Anaerobic Blood Culture - Preliminary No growth in 4 days 09/01/18 05:25 Aerobic Blood Culture - Preliminary Blood - Peripheral No growth in 4 days Anaerobic Blood Culture - Preliminary No growth in 4 days 08/29/18 22:45 Aerobic Blood Culture - Final Blood - Peripheral No growth in 5 days Anaerobic Blood Culture - Final No growth in 5 days 08/29/18 22:40 Aerobic Blood Culture - Final Blood - Peripheral No growth in 5 days Anaerobic Blood Culture - Final No growth in 5 days 09/02/18 11:50 Streptococcus pneumoniae Antigen (M - Final Urine - Random Urine Presumptive negative for streptococcus pneumoniae antigen, suggesting no current or recent infection. Infection due to Streptococcus pneumoniae cannot be ruled out since the antigen present in the sample may be below the detection limit of the test. 09/02/18 11:50 Legionella Antigen - Final Urine - Random Urine Presumptive negative for Legionella pneumophila serogroup 1 antigen in urine, suggesting no recent or recurrent infection. Infection due to Legionella cannot be ruled out since other serogroups and species may cause disease, antigen may not be present in urine in early infection, and the level of antigen present in the urine may be below the detection limit of the test. 08/31/18 11:58 Gram Stain - Final Sputum - Expectorated Sputum Sputum Culture - Final Heavy growth normal respiratory beatriz Medications: Active Medications Generic Name Dose Route Start Last Admin Trade Name Freq PRN Reason Stop Dose Admin Acetaminophen 650 mg 08/30/18 11:41 09/05/18 09:27 Tylenol PO 650 mg Q4H PRN Administration headache/fever/pain 1-4 Azithromycin 500 mg 08/30/18 22:00 09/05/18 09:20 Zithromax PO 500 mg DAILY [facility] Administration Enalaprilat 1.25 mg 08/30/18 16:00 09/03/18 01:10 Vasotec Inj IV.PUSH 1.25 mg Q6H PRN Administration SBP> OR = 180, DBP> OR = 100 Enoxaparin Sodium 90 mg 09/01/18 21:00 09/05/18 09:21 Lovenox Inj SQ Not Given Q12HR C[facility]EN Sodium Chloride 1,000 mls @ 100 mls/hr 08/31/18 17:45 09/04/18 23:04 Ns Inj IV.CONT 100 mls/hr .Q10H C[facility]EN Administration Cefepime HCl 2,000 mg/ Sodium 100 mls @ 200 mls/hr 09/02/18 09:00 09/05/18 09 :55 Chloride IV.SIG Infused Q8H [facility] Infusion Vancomycin HCl 1,500 mg/ 515 mls @ 262.5 mls/hr 09/04/18 14:00 09/05/18 06:54 Sodium Chloride IV.SIG Infused Q12H [facility] Infusion Indomethacin 50 mg 09/03/18 15:00 09/05/18 06:56 Indocin PO 50 mg Q8HR C[facility]EN Administration Pantoprazole Sodium 40 mg 09/03/18 14:30 09/05/18 09:20 Protonix PO 40 mg DAILY C[facility]EN Administration Senna/Docusate Sodium 1 tab 08/30/18 09:00 09/05/18 09:20 Valery-Colace PO 1 tab BID C[facility] Administration Sodium Chloride 2 ml 08/30/18 09:00 09/05/18 09:25 Ns Flush IV.FLUSH Not Given BID [facility] Tramadol HCl 50 mg 08/30/18 11:42 09/05/18 12:21 Ultram PO 50 mg Q6H PRN Administration pain scale 5 to 10 Objective Remarks: GENERAL: Well-nourished, well-developed male patient, no acute distress. SKIN: Warm and dry. Vitiligo present on upper and lower extremities. HEAD: Normocephalic. EYES: No scleral icterus. No injection or drainage. NECK: Supple, trachea midline. CARDIOVASCULAR: Regular rate and rhythm without murmurs. RESPIRATORY: Anterior breath sounds clear, equal bilaterally. No accessory muscle use. GASTROINTESTINAL: Abdomen soft, tender LUQ, nondistended. EXTREMITIES: No cyanosis. Redness and positive Heberden's node to right third digit. Redness and inflammation noted to bilateral feet with swelling and inflammation noted to bilateral great toes. MUSCULOSKELETAL: Adequate muscle tone. NEUROLOGICAL: No obvious focal deficit. Awake, alert, and oriented x3. Assessment/Plan - Plan Mr. guzman is a pleasant 57-year-old gentleman currently hospitalized with pneumonia and splenic infarct. Plan: 1. Splenic infarct, treatment dependent on underlying cause. Hypercoagulable and myeloproliferative workup pending. Continues on Lovenox, could possibly be converted to an Xa inhibitor closer to discharge. Patient refused a.m. dose of Lovenox, stated that he thought he was not supposed to take it. Discussed with patient and RN to continue Lovenox until patient is switched to an alternate. 2. Fever, secondary to splenic infarct and pneumonia. Continues on azithromycin and cefepime, management per attending. 3. Pain, current pain regimen with Indocin 50 mg 3 times daily and tramadol 50 mg p.o. every 6 hours as needed has been effective for patient. Uric acid level 4.7. 4. Continue supportive care. - Attending Statement The exam, history, and the medical decision-making described in the above note were completed with the assistance of the mid-level provider. I reviewed and agree with the findings presented. I attest that I had a [id number] encounter with the patient on the same day, and personally performed and documented my assessment and findings in the medical record. 1. neutrophilia/monocytosis: bone marrow ordered. 2. ? ID/rheumatologic disease: RF postive. ? lesion on echo. ID team following. Cultures ordered on bone marrow 3. splenic venin thrombosis: on lovenox but holding due to upcoming bone marrow. negative hypercoagulable work up. bone marrow pending.
--- NOTE | 2018-09-05 15:24 | P.PNIM ---
Subjective Interval history: The patient appears tired. No fever or chills overnight. Is not coughing. No nausea or vomiting. Swelling in his hand is better and less painful. Physical Exam Vital signs: Vital Signs 09/04/18 15:51 09/04/18 20:00 09/05/18 00:00 Temperature 97.8 F 98.4 F 98.2 F Pulse Rate 80 94 H 92 H Respiratory Rate 18 18 18 Blood Pressure 124/84 165/98 H 146/92 H Pulse Oximetry 96 98 97 09/05/18 04:00 09/05/18 09:25 09/05/18 11:50 Temperature 98.2 F 98.2 F 98.0 F Pulse Rate 83 91 H 96 H Respiratory Rate 18 16 16 Blood Pressure 136/82 153/83 H 137/93 H Pulse Oximetry 97 95 96 Intake & Output 09/04/18 09/05/18 09/05/18 18:59 06:59 18:59 Intake Total 1100 / 1100 2470 / 2470 100 / 100 Output Total 800 / 800 400 / 400 Balance 300 / 300 2070 / 2070 100 / 100 Weight 94 kg Intake: IV 1100 / 1100 2230 / 2230 100 / 100 NS Inj 1,000 ML @ 100 mls/hr IV 1000 / 1000 1000 / 1000 .CONT .Q10H [facility] Rx#:[id number] Maxipime Inj 2,000 MG In NS Inj 100 / 100 200 / 200 100 / 100 100 ML @ 200 mls/hr IV.SIG Q8H [facility] Rx#:[id number] Vancomycin Inj 1,500 MG In NS 1030 / 1030 Inj 500 ML @ 262.5 mls/hr IV. SIG Q12H [facility] Rx#:[id number] Oral 240 / 240 Output: Urine 800 / 800 400 / 400 Other: Date of Last Bowel Movement 09/04/18 09/04/18 Narrative: GENERAL: Pleasant 57-year-old male, appears in not acute distress SKIN: Warm and dry. No rash. Right hand with swelling improving. CARDIOVASCULAR: Regular rate and rhythm. No murmur appreciated. RESPIRATORY: No accessory muscle use. Clear to auscultation. Breath sounds equal bilaterally. GASTROINTESTINAL: Abdomen soft, nondistended, left upper quadrant tenderness to palpation. Normoactive bowel sounds x4. MUSCULOSKELETAL: No obvious deformities. Extremities without clubbing, cyanosis. Right hand edema more on fingers NEUROLOGICAL: Awake and alert. No obvious cranial nerve deficits. Moving all extremities spontaneously. Normal speech. PSYCHIATRIC: Appropriate mood and affect; insight and judgment normal. Results Labs CBC & Chem 7: 09/05/18 06:13 09/03/18 05:31 Labs: Microbiology 09/03/18 12:00 Blood - Peripheral Aerobic Blood Culture - Preliminary No growth in 2 days 09/03/18 12:00 Blood - Peripheral Anaerobic Blood Culture - Preliminary No growth in 2 days 09/03/18 12:05 Blood - Peripheral Aerobic Blood Culture - Preliminary No growth in 2 days 09/03/18 12:05 Blood - Peripheral Anaerobic Blood Culture - Preliminary No growth in 2 days 09/01/18 14:18 Blood - Peripheral Aerobic Blood Culture - Preliminary No growth in 4 days 09/01/18 14:18 Blood - Peripheral Anaerobic Blood Culture - Preliminary No growth in 4 days 09/01/18 14:26 Blood - Peripheral Aerobic Blood Culture - Preliminary No growth in 4 days 09/01/18 14:26 Blood - Peripheral Anaerobic Blood Culture - Preliminary No growth in 4 days 09/01/18 05:33 Blood - Peripheral Aerobic Blood Culture - Preliminary No growth in 4 days 09/01/18 05:33 Blood - Peripheral Anaerobic Blood Culture - Preliminary No growth in 4 days 09/01/18 05:25 Blood - Peripheral Aerobic Blood Culture - Preliminary No growth in 4 days 09/01/18 05:25 Blood - Peripheral Anaerobic Blood Culture - Preliminary No growth in 4 days Assessment and Plan Plan 57-year-old male with no significant past medical history presents to the emergency department for evaluation of left-sided abdominal/flank pain. 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 Unknown etiology of thrombosis. -Echocardiogram showed normal EF 55-60%; however there appears to be an echolucent linear structure which may represent atheromatous plaque, calcification of the noncoronary cusp of the aortic valve, or possible artifact ; recommended to consider chest CTA for further evaluation -Check chest CTA and give IVF hydration -discussed with Dr. Jacobson -Pain control with tramadol prn (patient was very sensitive to Percocet) -Hematology consulted, appreciate recommendations, hypercoagulable and myeloproliferative workup in progress -Per hematology, continue while inpatient anticoagulation with Lovenox, can discharge on Eliquis. -09/01 with edema in right hand and arm, US doppler with superficial thrombus. Note patient reports h/o poss SLE ? -Oncology Dr. Ledesma recommends bone marrow biopsy to rule out myelodysplastic syndrome Sepsis with Community-acquired pneumonia: Patient with 2-week history of cough. +leukocytosis with WBC 15K, fever Tmax 101.2, and suspected source-pneumonia. The patient is with splenic infarct, bilateral pneumonia with possible septic emboli. Plan for echo with echodensity to rule out probable endocarditis. Also rule out noninfectious causes of thromboembolic diseases.. Check HIV screen and PCR. ID following -Chest x-ray reviewed, shows minimal ill-defined infiltrate in the lungs -Blood cultures with NGTD -Repeat blood cultures ordered with spike of fever today 08/31 -Check sputum culture and influenza -Give IVF hydration -temp 102 noted on 09/01/18 repeat blood cx, consult ID, antibiotics changed per ID recommendations, continue azithromycin and started on cefepime IV. Persistent fevers until 09/03 Hypertension: No history of high blood pressure, although BP has been elevated throughout admission, likely exacerbated by pain -Control pain with tramadol as needed -IV Vasotec prn -Monitor BP, add antihypertensives as needed History of gout. uric acid nl. DVT prophylaxis: Teds/SCDs; lovenox Discussed with the patient, nurse DC when cleared by ID and hem/ onc Progress Note: Quality VTE Deep Vein Thrombosis/Pulmonary Embolism Present on Admission: No
[2018-09-05] MEDS: Sod Chloride 0.9% Inj 1,000 ML IV.CONT SCH (15:34)
--- NOTE | 2018-09-05 17:13 | P.PNID ---
Subjective Remarks: Mr. guzman is a 57-year-old male who presented to the emergency department with history of abdominal pain that was of acute onset just prior to admission. Patient reports pain in the left upper quadrant of the abdomen which radiated to his left flank. He reported that the pain was constant and became very severe and so he presented to the emergency department. He reports dry heaves associated with this pain. He reports no appetite for the last 3 weeks. Approximately 2 weeks back he developed cough and congestion making him bedbound for approximately 3 days. He reports at the beginning of fall of this he had nausea vomiting and diarrhea. Patient reports a flulike illness prior to the onset of all the symptoms. He also reports severe fatigue associated with this. He does not have a primary care physician has not seen anybody in more than 2 decades. 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 But other than that he does not report any other admissions to the hospitals or any. He denies any other systemic symptoms. He does report some dyspnea with exertion throughout this. Patient was found to have a splenic infarct on admission in addition he also was found to have an upper extremity DVT. These are thromboembolic events of new onset. He denies any family history of any thromboembolic disease. He has not been tested for HIV and hepatitis and consented to being tested for the same. Oncology has been following the patient and workup has been initiated for thromboembolic disease. Infectious diseases consulted for evaluation and management of persistent fevers, splenic infarct as well as bilateral pneumonia. Overnight events reviewed. No fevers No rash No diarrhea Complains of pain in his small joints of right hand with some swelling and erythema noted. Complains of pain in his great toe and ankle bilaterally as well as bilateral knee right more than left. Fevers defervesced with Indomethacin but pain and swelling persist. Antibiotics: Cefepime IV Vanco IV Lines: lines ok Past Medical History: reviewed Allergies/Adverse Reactions: Allergies No Known Allergies Allergy (Verified 08/29/18 21:40) Objective Vital Signs 09/04/18 20:00 09/05/18 00:00 09/05/18 04:00 Temperature 98.4 F 98.2 F 98.2 F Pulse Rate 94 H 92 H 83 Respiratory Rate 18 18 18 Blood Pressure 165/98 H 146/92 H 136/82 Pulse Oximetry 98 97 97 09/05/18 09:25 09/05/18 11:50 Temperature 98.2 F 98.0 F Pulse Rate 91 H 96 H Respiratory Rate 16 16 Blood Pressure 153/83 H 137/93 H Pulse Oximetry 95 96 Intake & Output 09/04/18 09/05/18 09/05/18 18:59 06:59 18:59 Intake Total 1100 / 1100 2470 / 2470 1100 / 1100 Output Total 800 / 800 400 / 400 Balance 300 / 300 2070 / 2070 1100 / 1100 Weight 94 kg Intake: IV 1100 / 1100 2230 / 2230 1100 / 1100 NS Inj 1,000 ML @ 100 mls/hr IV 1000 / 1000 1000 / 1000 1000 / 1000 .CONT .Q10H [facility] Rx#:[id number] Maxipime Inj 2,000 MG In NS Inj 100 / 100 200 / 200 100 / 100 100 ML @ 200 mls/hr IV.SIG Q8H [facility] Rx#:[id number] Vancomycin Inj 1,500 MG In NS 1030 / 1030 Inj 500 ML @ 262.5 mls/hr IV. SIG Q12H [facility] Rx#:[id number] Oral 240 / 240 Output: Urine 800 / 800 400 / 400 Other: Date of Last Bowel Movement 09/04/18 09/04/18 09/03/18 12:00 Blood - Peripheral Aerobic Blood Culture - Preliminary No growth in 2 days 09/03/18 12:00 Blood - Peripheral Anaerobic Blood Culture - Preliminary No growth in 2 days 09/03/18 12:05 Blood - Peripheral Aerobic Blood Culture - Preliminary No growth in 2 days 09/03/18 12:05 Blood - Peripheral Anaerobic Blood Culture - Preliminary No growth in 2 days 09/01/18 14:18 Blood - Peripheral Aerobic Blood Culture - Preliminary No growth in 4 days 09/01/18 14:18 Blood - Peripheral Anaerobic Blood Culture - Preliminary No growth in 4 days 09/01/18 14:26 Blood - Peripheral Aerobic Blood Culture - Preliminary No growth in 4 days 09/01/18 14:26 Blood - Peripheral Anaerobic Blood Culture - Preliminary No growth in 4 days 09/01/18 05:33 Blood - Peripheral Aerobic Blood Culture - Preliminary No growth in 4 days 09/01/18 05:33 Blood - Peripheral Anaerobic Blood Culture - Preliminary No growth in 4 days 09/01/18 05:25 Blood - Peripheral Aerobic Blood Culture - Preliminary No growth in 4 days 09/01/18 05:25 Blood - Peripheral Anaerobic Blood Culture - Preliminary No growth in 4 days 08/29/18 22:45 Blood - Peripheral Aerobic Blood Culture - Final No growth in 5 days 08/29/18 22:45 Blood - Peripheral Anaerobic Blood Culture - Final No growth in 5 days 08/29/18 22:40 Blood - Peripheral Aerobic Blood Culture - Final No growth in 5 days 08/29/18 22:40 Blood - Peripheral Anaerobic Blood Culture - Final No growth in 5 days 09/02/18 11:50 Urine - Random Urine Streptococcus pneumoniae Antigen (M - Final Presumptive negative for streptococcus pneumoniae antigen, suggesting no current or recent infection. Infection due to Streptococcus pneumoniae cannot be ruled out since the antigen present in the sample may be below the detection limit of the test. 09/02/18 11:50 Urine - Random Urine Legionella Antigen - Final Presumptive negative for Legionella pneumophila serogroup 1 antigen in urine, suggesting no recent or recurrent infection. Infection due to Legionella cannot be ruled out since other serogroups and species may cause disease, antigen may not be present in urine in early infection, and the level of antigen present in the urine may be below the detection limit of the test. Lab - Hematology Results 09/04/18 09/05/18 09:31 06:13 WBC 17.2 H 13.8 H RBC 3.79 L 3.44 L Hgb 11.4 L 10.5 L Hct 33.2 L 30.1 L MCV 87.5 87.5 MCH 30.0 30.5 MCHC 34.3 34.9 RDW 12.4 12.8 Plt Count 600 H 615 H MPV 7.3 7.2 Prelim Diff (Auto) Slide review pending Neut % (Auto) 77.5 H 74.6 H Lymph % (Auto) 7.7 L 8.3 L [place] % (Auto) 13.1 H 14.7 H Eos % (Auto) 1.0 2.0 Baso % (Auto) 0.7 0.4 Neut # (Auto) 13.4 H 10.3 H Lymph # (Auto) 1.3 1.1 [place] # (Auto) 2.3 H 2.0 H Eos # (Auto) 0.2 0.3 Baso # (Auto) 0.1 0.1 WBC Differential . . Diff Scan Auto diff confirmed Differential Comment . Auto diff final Platelet Estimate High H Platelet Morphology Normal Lab - Chemistry Results 09/04/18 09:31 Uric Acid 4.7 Imaging: ITS Impressions Abdomen/Pelvis CT 08/29/18 21:42 CONCLUSION: 1. I believe patient symptoms are due to splenic infarction with only central enhancement of the splenic parenchyma. There appears to be some thrombus within the splenic artery. 2. Prominent prostate with dystrophic type calcifications. Chest CTA 08/31/18 00:00 CONCLUSION: 1. The study is degraded by breathing motion. 2. No pulmonary emboli observed. 3. Bilateral pulmonary infiltrates most pronounced within the left lower lobe. 4. Coronary artery atherosclerotic calcifications. 5. Tiny left effusion. Venous Doppler Study 09/01/18 00:00 CONCLUSION: 1. Nonocclusive thrombus in the distal basilic vein at the IV site. Chest X-Ray 09/02/18 00:00 CONCLUSION: Developing consolidative changes left base consistent with and inflammatory process Physical Exam: GENERAL: Well-nourished well-developed, not in acute distress SKIN: Cool and dry, no generalized rash HEAD: Atraumatic. Normocephalic. No temporal or scalp tenderness. EYES: Pupils equal round and reactive. Scleral icterus. No injection or drainage. No petechia ENT: Nothing abnormal detected NECK: Trachea midline. Supple, nontender, no meningeal signs. CARDIOVASCULAR: HS audible. RESPIRATORY: Clear to auscultation bilaterally. GASTROINTESTINAL: Abdomen soft diffuse tenderness particularly on the left side. MUSCULOSKELETAL: Right hand with deformity of finger from prior accident. Overall hand [place] small finger joints appears red, warm and swollen. Bilateral knee with warmth and swelling Right more than left. Bilateral ankle and great toe with small joint infection. NEUROLOGICAL: Alert oriented 3. Nonfocal. Psych cooperative IV line sites ok. Assessment and Plan - Plan Fever leukocytosis,SIRS, possible sepsis. Splenic infarct Pneumonia bilateral with few areas that look like septic emboli due to their peripheral location ECHO with echodensity Probable endocarditis Rule out other non infectious causes for thromboembolic disease Rule out HIV as cause for thromboembolic disease Possible HCAP with new fevers Recs: Continue Azithro oral Continue Cefepime IV Continue Vanco IV (target 15-20) for now Frank Chambers bone marrow biopsy with cultures to be sent. Will frank [place] about 2 D ECHO findings. Elevated CRP Hepatitis negative. HIV screen negative. Follow cultures follow clinical course frank Oncology team .
[2018-09-06] MEDS ORDERED: Pharmacy Ordered Lab Info OTHER ONE (01:45)
[2018-09-06] MEDS: Vancomycin Inj 1,500 MG in Sodium Chlor 0.9% Inj 500 ML IV.SIG SCH (02:03)
[2018-09-06] MEDS: Sod Chloride 0.9% Inj 1,000 ML IV.CONT SCH ×3 (02:10→22:18)
[2018-09-06] MEDS: Acetaminophen 325 MG Tablet PO PRN ×3 (05:07→22:12)
--- NOTE | 2018-09-06 09:13 | P.PNONC ---
Subjective Interval history: Resting comfortably in bed in no distress. Improvement in swelling. Objective Vital Signs/Intake & Output: Vital Signs 09/05/18 09:25 09/05/18 11:50 09/05/18 15:20 Temperature 98.2 F 98.0 F 98.3 F Pulse Rate 91 H 96 H 127 H Respiratory Rate 16 16 16 Blood Pressure 153/83 H 137/93 H 131/95 H Pulse Oximetry 95 96 98 09/05/18 19:14 09/05/18 20:04 09/05/18 22:18 Temperature 98.2 F Pulse Rate 116 H Respiratory Rate 18 18 16 Blood Pressure 128/82 Pulse Oximetry 96 09/06/18 00:37 09/06/18 01:05 09/06/18 04:00 Temperature 98.4 F 98.2 F Pulse Rate 85 82 Respiratory Rate 18 18 20 Blood Pressure 151/94 H 144/92 H Pulse Oximetry 96 98 09/06/18 05:37 Temperature Pulse Rate Respiratory Rate 18 Blood Pressure Pulse Oximetry Intake & Output 09/05/18 09/06/18 09/06/18 18:59 06:59 18:59 Intake Total 2675 / 2675 1615 / 1615 Output Total 775 / 775 500 / 500 Balance 1900 / 1900 1115 / 1115 Weight 94.4 kg Intake: IV 1715 / 1715 1615 / 1615 NS Inj 1,000 ML @ 100 mls/hr IV 1000 / 1000 1000 / 1000 .CONT .Q10H [facility] Rx#:[id number] Maxipime Inj 2,000 MG In NS Inj 200 / 200 100 / 100 100 ML @ 200 mls/hr IV.SIG Q8H [facility] Rx#:[id number] Vancomycin Inj 1,500 MG In NS 515 / 515 515 / 515 Inj 500 ML @ 262.5 mls/hr IV. SIG Q12H [facility] Rx#:[id number] Oral 960 / 960 Output: Urine 775 / 775 500 / 500 Other: Date of Last Bowel Movement 09/04/18 09/04/18 Result Diagrams: 09/05/18 06:13 09/03/18 05:31 Laboratory Results: Laboratory Results - last 24 hr 09/06/18 01:50 Vancomycin Trough 12.2 H Culture Results: Microbiology 09/03/18 12:00 Aerobic Blood Culture - Preliminary Blood - Peripheral No growth in 2 days Anaerobic Blood Culture - Preliminary No growth in 2 days 09/03/18 12:05 Aerobic Blood Culture - Preliminary Blood - Peripheral No growth in 2 days Anaerobic Blood Culture - Preliminary No growth in 2 days 09/01/18 14:18 Aerobic Blood Culture - Preliminary Blood - Peripheral No growth in 4 days Anaerobic Blood Culture - Preliminary No growth in 4 days 09/01/18 14:26 Aerobic Blood Culture - Preliminary Blood - Peripheral No growth in 4 days Anaerobic Blood Culture - Preliminary No growth in 4 days 09/01/18 05:33 Aerobic Blood Culture - Preliminary Blood - Peripheral No growth in 4 days Anaerobic Blood Culture - Preliminary No growth in 4 days 09/01/18 05:25 Aerobic Blood Culture - Preliminary Blood - Peripheral No growth in 4 days Anaerobic Blood Culture - Preliminary No growth in 4 days 08/29/18 22:45 Aerobic Blood Culture - Final Blood - Peripheral No growth in 5 days Anaerobic Blood Culture - Final No growth in 5 days 08/29/18 22:40 Aerobic Blood Culture - Final Blood - Peripheral No growth in 5 days Anaerobic Blood Culture - Final No growth in 5 days Medications: Active Medications Generic Name Dose Route Start Last Admin Trade Name Freq PRN Reason Stop Dose Admin Acetaminophen 650 mg 08/30/18 11:41 09/06/18 05:07 Tylenol PO 650 mg Q4H PRN Administration headache/fever/pain 1-4 Azithromycin 500 mg 08/30/18 22:00 09/05/18 09:20 Zithromax PO 500 mg DAILY CULLEN Administration Enalaprilat 1.25 mg 08/30/18 16:00 09/03/18 01:10 Vasotec Inj IV.PUSH 1.25 mg Q6H PRN Administration SBP> OR = 180, DBP> OR = 100 Enoxaparin Sodium 90 mg 09/01/18 21:00 09/05/18 09:21 Lovenox Inj SQ Not Given Q12HR C[facility] Sodium Chloride 1,000 mls @ 100 mls/hr 08/31/18 17:45 09/06/18 04:59 Ns Inj IV.CONT Not Given .Q10H [facility] Cefepime HCl 2,000 mg/ Sodium 100 mls @ 200 mls/hr 09/02/18 09:00 09/06/18 01 :06 Chloride IV.SIG Infused Q8H [facility] Infusion Vancomycin HCl 1,500 mg/ 515 mls @ 262.5 mls/hr 09/04/18 14:00 09/06/18 04:11 Sodium Chloride IV.SIG Infused Q12H [facility] Infusion Indomethacin 50 mg 09/03/18 15:00 09/06/18 05:05 Indocin PO 50 mg Q8HR C[facility] Administration Pantoprazole Sodium 40 mg 09/03/18 14:30 09/05/18 09:20 Protonix PO 40 mg DAILY CULLEN Administration Senna/Docusate Sodium 1 tab 08/30/18 09:00 09/05/18 20:03 Valery-Colace PO Not Given BID C[facility] Sodium Chloride 2 ml 08/30/18 09:00 09/05/18 21:44 Ns Flush IV.FLUSH Not Given BID C[facility]EN Tramadol HCl 50 mg 08/30/18 11:42 09/06/18 00:35 Ultram PO 50 mg Q6H PRN Administration pain scale 5 to 10 Objective Remarks: GENERAL: Well-nourished, well-developed patient. SKIN: Warm and dry. HEAD: Normocephalic. EYES: No scleral icterus. No injection or drainage. NECK: Supple, trachea midline. No JVD or lymphadenopathy. LYMPHATIC: No adenopathy. RESPIRATORY: No accessory muscle use. GASTROINTESTINAL: Abdomen soft, non-tender, nondistended. EXTREMITIES: swelling of joints of right middle and pointer finger NEUROLOGICAL: No obvious focal deficit. Awake, alert, and oriented x3. PSYCHIATRIC: Appropriate mood and affect; insight and judgment normal. Assessment/Plan - Plan Mr. guzman is a pleasant 57-year-old gentleman currently hospitalized with pneumonia and splenic infarct. Plan: 1. 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 myeloproliferative work up pending. ON lovenox but holding due to upcoming bone marrow. Will need to be discharged on apixaban 5 mg PO BID. 2. Leukocytosis, thrombocytosis: JAK2, BCR ABL pending. 2. Fever, secondary to splenic infarct and pneumonia. Continues on azithromycin and cefepime. ID team following. ? endocarditis. Cultures on bone marrow specimen 3. ? autoimmune arthritis: + RF. patient reports that he has been diagnosed with gout in the past. He will need to establish care with a neonatal nurse practitioner
[2018-09-06] MEDS: Senna/Docusate Sodium 8.6/50 MG Tablet PO SCH ×2 (09:37→22:13)
[2018-09-06] MEDS: Azithromycin 250 MG Tablet PO SCH (09:56)
[2018-09-06 10:01] LABS: Baso # (Auto) 0.1 th/mm3 (0.0-0.2); Baso % (Auto) 0.7 % (0.0-2.0); Eos # (Auto) 0.4 th/mm3 (0.0-0.4); Eos % (Auto) 2.8 % (0.0-4.0); Hematocrit 29.2 % (39.0-51.0); Hemoglobin 10.2 gm/dL (13.0-17.0); Lymph # (Auto) 1.1 th/mm3 (1.0-4.8); Lymph % (Auto) 7.8 % (9.0-44.0); Mean Corpuscular HGB Conc 34.8 % (32.0-36.0); Mean Corpuscular Hemoglobin 30.2 pg (27.0-34.0); Mean Corpuscular Volume 86.8 fL (80.0-100.0); Mean Platelet Volume 7.9 fL (7.0-11.0); Mono # (Auto) 2.2 th/mm3 (0.0-0.9); Mono % (Auto) 15.5 % (0.0-8.0); Neut # (Auto) 10.5 th/mm3 (1.8-7.7); Neut % (Auto) 73.2 % (16.0-70.0); Platelet Count 554 th/mm3 (150-450); Red Blood Count 3.37 mil/mm3 (4.50-5.90); White Blood Count 14.4 th/mm3 (4.0-11.0)
[2018-09-06 11:27] LABS: Platelet Morphology Normal (Normal)
[2018-09-06] MEDS: Vancomycin Inj 1,750 MG in Sodium Chlor 0.9% Inj 500 ML IV.SIG SCH (13:09)
[2018-09-06] MEDS ORDERED: fentaNYL Citrate Inj 250 MCG/5 ML Ampul ONE (15:28)
--- NOTE | 2018-09-06 16:22 | P.PNIM ---
Subjective Interval history: The patient is still with a swelling in his left hand and also left knee. No fever or chills overnight. Not eating much. More pain today. Plan for bone marrow biopsy Physical Exam Vital signs: Vital Signs 09/05/18 19:14 09/05/18 20:04 09/05/18 22:18 Temperature 98.2 F Pulse Rate 116 H Respiratory Rate 18 18 16 Blood Pressure 128/82 Pulse Oximetry 96 09/06/18 00:37 09/06/18 01:05 09/06/18 04:00 Temperature 98.4 F 98.2 F Pulse Rate 85 82 Respiratory Rate 18 18 20 Blood Pressure 151/94 H 144/92 H Pulse Oximetry 96 98 09/06/18 05:37 09/06/18 09:53 09/06/18 12:36 Temperature 97.9 F 99.2 F Pulse Rate 77 83 Respiratory Rate 18 18 16 Blood Pressure 159/102 H 172/101 H Pulse Oximetry 97 95 09/06/18 13:45 Temperature Pulse Rate Respiratory Rate Blood Pressure 168/99 H Pulse Oximetry Intake & Output 09/05/18 09/06/18 09/06/18 18:59 06:59 18:59 Intake Total 2675 / 2675 1615 / 1615 100 / 100 Output Total 775 / 775 500 / 500 Balance 1900 / 1900 1115 / 1115 100 / 100 Weight 94.4 kg Intake: IV 1715 / 1715 1615 / 1615 100 / 100 NS Inj 1,000 ML @ 100 mls/hr IV 1000 / 1000 1000 / 1000 .CONT .Q10H [facility] Rx#:[id number] Maxipime Inj 2,000 MG In NS Inj 200 / 200 100 / 100 100 / 100 100 ML @ 200 mls/hr IV.SIG Q8H [facility] Rx#:[id number] Vancomycin Inj 1,500 MG In NS 515 / 515 515 / 515 Inj 500 ML @ 262.5 mls/hr IV. SIG Q12H [facility] Rx#:[id number] Oral 960 / 960 Output: Urine 775 / 775 500 / 500 Other: Date of Last Bowel Movement 09/04/18 09/04/18 09/04/18 Narrative: GENERAL: Pleasant 57-year-old male, appears in not acute distress SKIN: Warm and dry. No rash. Right hand with swelling improving. CARDIOVASCULAR: Regular rate and rhythm. No murmur appreciated. RESPIRATORY: No accessory muscle use. Clear to auscultation. Breath sounds equal bilaterally. GASTROINTESTINAL: Abdomen soft, nondistended, left upper quadrant tenderness to palpation. Normoactive bowel sounds x4. MUSCULOSKELETAL: No obvious deformities. Extremities without clubbing, cyanosis. Right hand edema more on fingers NEUROLOGICAL: Awake and alert. No obvious cranial nerve deficits. Moving all extremities spontaneously. Normal speech. PSYCHIATRIC: Appropriate mood and affect; insight and judgment normal. Results Labs CBC & Chem 7: 09/06/18 08:17 09/03/18 05:31 Labs: Microbiology 09/03/18 12:00 Blood - Peripheral Aerobic Blood Culture - Preliminary No growth in 3 days 09/03/18 12:00 Blood - Peripheral Anaerobic Blood Culture - Preliminary No growth in 3 days 09/03/18 12:05 Blood - Peripheral Aerobic Blood Culture - Preliminary No growth in 3 days 09/03/18 12:05 Blood - Peripheral Anaerobic Blood Culture - Preliminary No growth in 3 days 09/01/18 14:18 Blood - Peripheral Aerobic Blood Culture - Final No growth in 5 days 09/01/18 14:18 Blood - Peripheral Anaerobic Blood Culture - Final No growth in 5 days 09/01/18 14:26 Blood - Peripheral Aerobic Blood Culture - Final No growth in 5 days 09/01/18 14:26 Blood - Peripheral Anaerobic Blood Culture - Final No growth in 5 days 09/01/18 05:33 Blood - Peripheral Aerobic Blood Culture - Final No growth in 5 days 09/01/18 05:33 Blood - Peripheral Anaerobic Blood Culture - Final No growth in 5 days 09/01/18 05:25 Blood - Peripheral Aerobic Blood Culture - Final No growth in 5 days 09/01/18 05:25 Blood - Peripheral Anaerobic Blood Culture - Final No growth in 5 days Assessment and Plan Plan 57-year-old male with no significant past medical history presents to the emergency department for evaluation of left-sided abdominal/flank pain. 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 Unknown etiology of thrombosis. -Echocardiogram showed normal EF 55-60%; however there appears to be an echolucent linear structure which may represent atheromatous plaque, calcification of the noncoronary cusp of the aortic valve, or possible artifact ; recommended to consider chest CTA for further evaluation -Check chest CTA and give IVF hydration -discussed with Dr. Jacobson -Pain control with tramadol prn (patient was very sensitive to Percocet) -Hematology consulted, appreciate recommendations, hypercoagulable and myeloproliferative workup in progress -Per hematology, continue while inpatient anticoagulation with Lovenox, can discharge on Eliquis. -09/01 with edema in right hand and arm, US doppler with superficial thrombus. Note patient reports h/o poss SLE and also h/o gout. RF is positive needs to follow up as OP with rheumatology. - regina repeat ECHO to r/o endocarditis -Oncology Dr. Ledesma recommends bone marrow biopsy to rule out myelodysplastic syndrome Sepsis with Community-acquired pneumonia: Patient with 2-week history of cough. +leukocytosis with WBC 15K, fever Tmax 101.2, and suspected source-pneumonia. The patient is with splenic infarct, bilateral pneumonia with possible septic emboli. Plan for echo with echodensity to rule out probable endocarditis. Also rule out noninfectious causes of thromboembolic diseases.. Check HIV screen and PCR. ID following -Chest x-ray reviewed, shows minimal ill-defined infiltrate in the lungs -Blood cultures with NGTD -Repeat blood cultures ordered with spike of fever today 08/31 -Check sputum culture and influenza -Give IVF hydration -temp 102 noted on 09/01/18 repeat blood cx, consult ID, antibiotics changed per ID recommendations, continue azithromycin and started on cefepime IV. Persistent fevers until 09/03 Hypertension: No history of high blood pressure, although BP has been elevated throughout admission, likely exacerbated by pain -Control pain with tramadol as needed -IV Vasotec prn -Monitor BP, add antihypertensives as needed History of gout. uric acid nl. DVT prophylaxis: Teds/SCDs; lovenox Discussed with the patient, nurse DC when cleared by ID and hem/ onc Plan for bone marrow biopsy. Lovenox on hold Progress Note: Quality VTE Deep Vein Thrombosis/Pulmonary Embolism Present on Admission: No
--- NOTE | 2018-09-06 16:46 | CT ---
EXAM DATE: 09/06/2018 4:43 PM EST AGE/SEX: 57 years / Male INDICATIONS: Leukocytosis. CLINICAL DATA: This is the patient's initial encounter. Patient reports that signs and symptoms have been present for 1 day and indicates a pain score of 0/10. MEDICAL/SURGICAL HISTORY: None. None. COMPARISON: No prior exams available for comparison. SEDATION TIME (min): 30 BIOPSY SITE: . bone marrow MEDICATION(S): 2.5mg midazolam (Versed) IV 125mcg fentanyl (Sublimaze) IV DEVICE(S): 11 gauge Bone marrow biopsy needle One core specimen(s) sent to the laboratory for pathologic evaluation. . . PROCEDURE: CT guided . bone marrow biopsy Prior to the procedure informed consent was obtained. Any appropriate prior imaging studies were rev iewed. Using automated exposure control and adjustment of the mA and/or kV according to patient size , radiation dose was kept as low as reasonably achievable to obtain optimal diagnostic quality images . DICOM format image data is available electronically for review and comparison. The site was prepped in a sterile fashion. Full sterile technique was used, including cap, mask, amadeo rile gloves and gown and a large sterile sheet. Hand hygiene and 2% chlorhexidine and/or betadine/al cohol prep was utilized per protocol for cutaneous antisepsis. The skin and subcutaneous tissues wer e infiltrated with local anesthetic solution. With CT guidance the previously identified target was localized. Biopsy was performed using the presc ribed needle as above. Following biopsy marrow aspiration was performed with repeat puncture. Adequa te hemostasis was obtained with compression at the puncture site. Follow-up CT scan reveals no hemorrhage. Conscious sedation was performed with the prescribed dosages and duration as above in the presence of an independent trained radiology nurse to assist in the monitoring of the patient. EKG and oximetry remained stable throughout the procedure. The patient tolerated the procedure well and there were no complications. The patient was sent to Radiology Outpatient Unit in stable condition. CONCLUSION: 1. Uncomplicated CT guided bone marrow aspirate. 2. Uncomplicated CT guided bone marrow biopsy. Electronically signed by: Kraig Dailey MD Board Certified Radiologist 09/06/2018 4:45 PM EST
[2018-09-06 19:26] LABS: Iron Stain Bone Marrow Done
[2018-09-07] MEDS: Vancomycin Inj 1,750 MG in Sodium Chlor 0.9% Inj 500 ML IV.SIG SCH ×2 (03:47→12:46)
[2018-09-07 07:08] LABS: Glomerular Filtration Rate Greater Than 89 mL/min (>89)
[2018-09-07] MEDS: Azithromycin 250 MG Tablet PO SCH (09:32)
[2018-09-07] MEDS: Senna/Docusate Sodium 8.6/50 MG Tablet PO SCH ×2 (09:32→23:55)
--- NOTE | 2018-09-07 12:30 | P.PNONC ---
Subjective Interval history: Patient sitting up in bed with lunch tray, in no acute distress. Reports that the joint discomfort in his hands has somewhat improved and he feels that the joint pain has now settled in his right knee. States that Indocin is most helpful for this. Denies any chest pain, shortness of breath or bleeding. Objective Vital Signs/Intake & Output: Vital Signs 09/06/18 12:36 09/06/18 13:45 09/06/18 16:20 Temperature 99.2 F 97.8 F Pulse Rate 83 81 Respiratory Rate 16 18 Blood Pressure 172/101 H 168/99 H 153/96 H Pulse Oximetry 95 90 L 09/06/18 16:35 09/06/18 17:03 09/06/18 17:48 Temperature 98.1 F Pulse Rate 81 76 84 Respiratory Rate 16 18 16 Blood Pressure 162/95 H 145/92 H 146/89 H Pulse Oximetry 93 L 95 98 09/06/18 22:07 09/07/18 00:00 09/07/18 03:34 Temperature 98.7 F 99.6 F 98.0 F Pulse Rate 90 92 H 111 H Respiratory Rate 16 16 16 Blood Pressure 159/93 H 158/95 H 162/106 H Pulse Oximetry 94 L 94 L 95 09/07/18 05:20 09/07/18 06:22 09/07/18 09:21 Temperature 98.1 F Pulse Rate 82 Respiratory Rate 16 Blood Pressure 144/91 H 142/85 H 155/94 H Pulse Oximetry 94 L Intake & Output 09/06/18 09/07/18 09/07/18 18:59 06:59 18:59 Intake Total 1967.5 / 1967.5 100 / 100 517.5 / 517.5 Output Total 550 / 550 1925 / 1925 Balance 1417.5 / 1417.5 -1825 / -1825 517.5 / 517.5 Weight 93.3 kg Intake: IV 1717.5 / 1717.5 100 / 100 517.5 / 517.5 NS Inj 1,000 ML @ 100 mls/hr IV 1000 / 1000 .CONT .Q10H [facility] Rx#:[id number] Maxipime Inj 2,000 MG In NS Inj 200 / 200 100 / 100 100 ML @ 200 mls/hr IV.SIG Q8H [facility] Rx#:[id number] Vancomycin Inj 1,750 MG In NS 517.5 / 517.5 517.5 / 517.5 Inj 500 ML @ 250 mls/hr IV.SIG Q12H [facility] Rx#:[id number] Oral 250 / 250 Output: Urine 550 / 550 1925 / 1925 Other: # Voids 1 Date of Last Bowel Movement 09/05/18 09/06/18 09/06/18 # Bowel Movements 0 Result Diagrams: 09/06/18 08:17 09/07/18 06:20 Laboratory Results: Laboratory Results - last 24 hr 09/02/18 09/04/18 09/07/18 09:42 09:31 06:20 Creatinine 0.56 L Estimated GFR Greater than 89 Rheumatoid Factor Less than 14 HIV-1 DNA (PCR) Not detected Culture Results: Microbiology 09/03/18 12:00 Aerobic Blood Culture - Preliminary Blood - Peripheral No growth in 4 days Anaerobic Blood Culture - Preliminary No growth in 4 days 09/03/18 12:05 Aerobic Blood Culture - Preliminary Blood - Peripheral No growth in 4 days Anaerobic Blood Culture - Preliminary No growth in 4 days 09/01/18 14:18 Aerobic Blood Culture - Final Blood - Peripheral No growth in 5 days Anaerobic Blood Culture - Final No growth in 5 days 09/01/18 14:26 Aerobic Blood Culture - Final Blood - Peripheral No growth in 5 days Anaerobic Blood Culture - Final No growth in 5 days 09/01/18 05:33 Aerobic Blood Culture - Final Blood - Peripheral No growth in 5 days Anaerobic Blood Culture - Final No growth in 5 days 09/01/18 05:25 Aerobic Blood Culture - Final Blood - Peripheral No growth in 5 days Anaerobic Blood Culture - Final No growth in 5 days Imaging Studies: Impressions Bone Marrow Biopsy w/ CT 09/06/18 00:00 CONCLUSION: 1. Uncomplicated CT guided bone marrow aspirate. 2. Uncomplicated CT guided bone marrow biopsy. Medications: Active Medications Generic Name Dose Route Start Last Admin Trade Name Freq PRN Reason Stop Dose Admin Acetaminophen 650 mg 08/30/18 11:41 09/06/18 22:12 Tylenol PO 650 mg Q4H PRN Administration headache/fever/pain 1-4 Azithromycin 500 mg 08/30/18 22:00 09/07/18 09:32 Zithromax PO 500 mg DAILY [facility] Administration Enalaprilat 1.25 mg 08/30/18 16:00 09/07/18 03:47 Vasotec Inj IV.PUSH 1.25 mg Q6H PRN Administration SBP> OR = 180, DBP> OR = 100 Enoxaparin Sodium 90 mg 09/01/18 21:00 09/05/18 09:21 Lovenox Inj SQ Not Given Q12HR [facility] Sodium Chloride 1,000 mls @ 100 mls/hr 08/31/18 17:45 09/06/18 22:18 Ns Inj IV.CONT 100 mls/hr .Q10H [facility] Administration Cefepime HCl 2,000 mg/ Sodium 100 mls @ 200 mls/hr 09/02/18 09:00 09/07/18 09 :36 Chloride IV.SIG 200 mls/hr Q8H [facility] Administration Vancomycin HCl 1,750 mg/ 517.5 mls @ 250 mls/hr 09/06/18 13:00 09/07/18 07:00 Sodium Chloride IV.SIG Infused Q12H [facility] Infusion Indomethacin 50 mg 09/03/18 15:00 09/07/18 06:23 Indocin PO 50 mg Q8HR [facility] Administration Pantoprazole Sodium 40 mg 09/03/18 14:30 09/07/18 09:32 Protonix PO 40 mg DAILY C[facility]EN Administration Senna/Docusate Sodium 1 tab 08/30/18 09:00 09/07/18 09:32 Valery-Colace PO Not Given BID C[facility] Sodium Chloride 2 ml 08/30/18 09:00 09/07/18 09:15 Ns Flush IV.FLUSH Not Given BID [facility] Tramadol HCl 50 mg 08/30/18 11:42 09/07/18 06:23 Ultram PO 50 mg Q6H PRN Administration pain scale 5 to 10 Objective Remarks: GENERAL: Well-nourished, well-developed male patient, no acute distress. SKIN: Warm and dry. Vitiligo present on upper and lower extremities. HEAD: Normocephalic. EYES: No scleral icterus. No injection or drainage. NECK: Supple, trachea midline. CARDIOVASCULAR: Regular rate and rhythm without murmurs. RESPIRATORY: Anterior breath sounds clear, equal bilaterally. Nonlabored at rest. GASTROINTESTINAL: Abdomen soft, nontender, nondistended. EXTREMITIES: No cyanosis. Joint swelling to right hand somewhat improved. Swelling noted to right knee limiting mobility. Redness and inflammation noted to bilateral feet with swelling and inflammation noted to bilateral great toes. MUSCULOSKELETAL: Adequate muscle tone. NEUROLOGICAL: No obvious focal deficit. Awake, alert, and oriented x3. Assessment/Plan - Plan Mr. guzman is a pleasant 57-year-old gentleman currently hospitalized with pneumonia and splenic infarct. Plan: 1. 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 myeloproliferative work up pending. Status post bone marrow biopsy 09/06/2018, will resume Lovenox. 2. Leukocytosis, thrombocytosis, CBC in a.m. Bone marrow culture not performed , report states specimen was sent in anticoagulant. Dominguez 2, BCR and ABL not detected, remainder of study pending. 2. Fever, secondary to splenic infarct and pneumonia. Afebrile today. Continues on azithromycin and cefepime. ID team following. 3. Arthritic pain, increased swelling right knee. + RF. Patient reports that he has been diagnosed with gout in the past. He will need to establish care with a nursing techn upon discharge. 4. Continue supportive measures. - Attending Statement The exam, history, and the medical decision-making described in the above note were completed with the assistance of the mid-level provider. I reviewed and agree with the findings presented. I attest that I had a [id number] encounter with the patient on the same day, and personally performed and documented my assessment and findings in the medical record. Resting in bed. s/p bone marrow biopsy. Unable to perform bacterial culture on marrow specimen. On indomethacin. Likley autoimmune component to joint inflammation. Will start prednisone therapy. Follow up bone marrow results.
--- NOTE | 2018-09-07 14:23 | P.PNIM ---
Subjective Interval history: The patient complains of more pain in his joints, most pain is in his right knee but also the right hand is painful. Some pain at the bone marrow biopsy as well. His blood pressures is elevated. Patient wants to try morphine now because his pain is worsening and current meds are not helping much , says he did try to stay away as much as possible from narcotic use but pain is too much. Afebrile overnight. No nausea or vomiting no diarrhea constipation. Says not able to do much physical therapy due to pain. Physical Exam Vital signs: Vital Signs 09/06/18 16:20 09/06/18 16:35 09/06/18 17:03 Temperature 97.8 F Pulse Rate 81 81 76 Respiratory Rate 18 16 18 Blood Pressure 153/96 H 162/95 H 145/92 H Pulse Oximetry 90 L 93 L 95 09/06/18 17:48 09/06/18 22:07 09/07/18 00:00 Temperature 98.1 F 98.7 F 99.6 F Pulse Rate 84 90 92 H Respiratory Rate 16 16 16 Blood Pressure 146/89 H 159/93 H 158/95 H Pulse Oximetry 98 94 L 94 L 09/07/18 03:34 09/07/18 05:20 09/07/18 06:22 Temperature 98.0 F Pulse Rate 111 H Respiratory Rate 16 Blood Pressure 162/106 H 144/91 H 142/85 H Pulse Oximetry 95 09/07/18 09:21 09/07/18 12:40 Temperature 98.1 F 98.1 F Pulse Rate 82 90 Respiratory Rate 16 16 Blood Pressure 155/94 H 169/99 H Pulse Oximetry 94 L 96 Intake & Output 09/06/18 09/07/18 09/07/18 18:59 06:59 18:59 Intake Total 1967.5 / 1967.5 100 / 100 517.5 / 517.5 Output Total 550 / 550 1925 / 1925 Balance 1417.5 / 1417.5 -1825 / -1825 517.5 / 517.5 Weight 93.3 kg Intake: IV 1717.5 / 1717.5 100 / 100 517.5 / 517.5 NS Inj 1,000 ML @ 100 mls/hr IV 1000 / 1000 .CONT .Q10H [facility] Rx#:[id number] Maxipime Inj 2,000 MG In NS Inj 200 / 200 100 / 100 100 ML @ 200 mls/hr IV.SIG Q8H [facility] Rx#:[id number] Vancomycin Inj 1,750 MG In NS 517.5 / 517.5 517.5 / 517.5 Inj 500 ML @ 250 mls/hr IV.SIG Q12H [facility] Rx#:[id number] Oral 250 / 250 Output: Urine 550 / 550 1925 / 1925 Other: # Voids 1 Date of Last Bowel Movement 09/05/18 09/06/18 09/06/18 # Bowel Movements 0 Narrative: GENERAL: Pleasant 57-year-old male, appears in not acute distress SKIN: Warm and dry. No rash. Right hand with swelling improving. CARDIOVASCULAR: Regular rate and rhythm. No murmur appreciated. RESPIRATORY: No accessory muscle use. Clear to auscultation. Breath sounds equal bilaterally. GASTROINTESTINAL: Abdomen soft, nondistended, left upper quadrant tenderness to palpation. Normoactive bowel sounds x4. MUSCULOSKELETAL: No obvious deformities. Extremities without clubbing, cyanosis. Right hand edema more on fingers. Right knee swelling, no erythema, painful. NEUROLOGICAL: Awake and alert. No obvious cranial nerve deficits. Moving all extremities spontaneously. Normal speech. PSYCHIATRIC: Appropriate mood and affect; insight and judgment normal. Results Labs CBC & Chem 7: 09/06/18 08:17 09/07/18 06:20 Labs: Microbiology 09/03/18 12:00 Blood - Peripheral Aerobic Blood Culture - Preliminary No growth in 4 days 09/03/18 12:00 Blood - Peripheral Anaerobic Blood Culture - Preliminary No growth in 4 days 09/03/18 12:05 Blood - Peripheral Aerobic Blood Culture - Preliminary No growth in 4 days 09/03/18 12:05 Blood - Peripheral Anaerobic Blood Culture - Preliminary No growth in 4 days 09/01/18 14:18 Blood - Peripheral Aerobic Blood Culture - Final No growth in 5 days 09/01/18 14:18 Blood - Peripheral Anaerobic Blood Culture - Final No growth in 5 days 09/01/18 14:26 Blood - Peripheral Aerobic Blood Culture - Final No growth in 5 days 09/01/18 14:26 Blood - Peripheral Anaerobic Blood Culture - Final No growth in 5 days 09/01/18 05:33 Blood - Peripheral Aerobic Blood Culture - Final No growth in 5 days 09/01/18 05:33 Blood - Peripheral Anaerobic Blood Culture - Final No growth in 5 days 09/01/18 05:25 Blood - Peripheral Aerobic Blood Culture - Final No growth in 5 days 09/01/18 05:25 Blood - Peripheral Anaerobic Blood Culture - Final No growth in 5 days Imaging Imaging: Impressions Bone Marrow Biopsy w/ CT 09/06/18 00:00 CONCLUSION: 1. Uncomplicated CT guided bone marrow aspirate. 2. Uncomplicated CT guided bone marrow biopsy. Assessment and Plan Plan 57-year-old male with no significant past medical history presents to the emergency department for evaluation of left-sided abdominal/flank pain. 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 Unknown etiology of thrombosis. -Echocardiogram showed normal EF 55-60%; however there appears to be an echolucent linear structure which may represent atheromatous plaque, calcification of the noncoronary cusp of the aortic valve, or possible artifact ; recommended to consider chest CTA for further evaluation -Check chest CTA and give IVF hydration -discussed with Dr. Jacobson -Pain control with tramadol prn (patient was very sensitive to Percocet) -Hematology consulted, appreciate recommendations, hypercoagulable and myeloproliferative workup in progress -Per hematology, continue while inpatient anticoagulation with Lovenox, can discharge on Eliquis. -09/01 with edema in right hand and arm, US doppler with superficial thrombus. Note patient reports h/o poss SLE and also h/o gout. RF is positive needs to follow up as OP with rheumatology. - regina repeat ECHO to r/o endocarditis -Oncology Dr. Ledesma recommends bone marrow biopsy to rule out myelodysplastic syndrome -S/P bone marrow biopsy by IR on 09/06/18 -Patient withmore pain and elevated BP on 09/07 add morphine for breakthrpugh pain Sepsis with Community-acquired pneumonia: Patient with 2-week history of cough. +leukocytosis with WBC 15K, fever Tmax 101.2, and suspected source-pneumonia. The patient is with splenic infarct, bilateral pneumonia with possible septic emboli. Plan for echo with echodensity to rule out probable endocarditis. Also rule out noninfectious causes of thromboembolic diseases.. Check HIV screen and PCR. ID following -Chest x-ray reviewed, shows minimal ill-defined infiltrate in the lungs -Blood cultures with NGTD -Repeat blood cultures ordered with spike of fever today 08/31 -Check sputum culture and influenza -Give IVF hydration -temp 102 noted on 09/01/18 repeat blood cx, consult ID, antibiotics changed per ID recommendations, continue azithromycin and started on cefepime IV. Persistent fevers until 09/03 - repeat ECHO limited to check for endocarditis Hypertension: No history of high blood pressure, although BP has been elevated throughout admission, likely exacerbated by pain -Control pain with tramadol as needed -IV Vasotec prn -Monitor BP, add antihypertensives as needed History of gout. uric acid nl. DVT prophylaxis: Teds/SCDs; lovenox Discussed with the patient, nurse DC when cleared by ID and hem/ onc s/p bone marrow biopsy. Lovenox on hold Progress Note: Quality VTE Deep Vein Thrombosis/Pulmonary Embolism Present on Admission: No
[2018-09-07] MEDS: Sod Chloride 0.9% Inj 1,000 ML IV.CONT SCH (17:08)
[2018-09-07] MEDS: Morphine Sulfate Inj 2 MG/ML Vial IV.PUSH PRN (18:20)
--- NOTE | 2018-09-07 18:37 | ECHRPT ---
Indication: Poss vegetation CONCLUSIONS Normal left ventricular size. Wall thickness is normal. The left ventricular systolic function is normal with an estimated ejection fraction of 55%. Hyperechoic sturcture noted on aortic valve, possible vegetation. The estimated pulmonary arterial pressure is 28 mmHg. There is mild tricuspid valve regurgitation. . BP: / HR: Rhythm: MEASUREMENTS (Male / Female) Normal Values Technical Quality: 2D ECHO LV Diastolic Diameter PLAX 4.1 cm 4.2 - 5.9 / 3.9 - 5.3 cm LV Systolic Diameter PLAX 3.2 cm IVS Diastolic Thickness 1.2 cm 0.6 - 1.0 / 0.6 - 0.9 cm LVPW Diastolic Thickness 1.1 cm 0.6 - 1.0 / 0.6 - 0.9 cm LV Relative Wall Thickness 0.6 RV Internal Dim ED PLAX 2.9 cm Aortic Root Diameter 2.7 cm LA Systolic Diameter LX 2.9 cm 3.0 - 4.0 / 2.7 - 3.8 cm DOPPLER AV Peak Velocity 141.0 cm/s AV Peak Gradient 8.0 mmHg LVOT Peak Velocity 116.0 cm/s LVOT Peak Gradient 5.4 mmHg TR Peak Velocity 213.0 cm/s TR Peak Gradient 18.1 mmHg Right Atrial Pressure 10.0 mmHg Pulmonary Artery Systolic Pressu 28.1 mmHg Right Ventricular Systolic Press 28.1 mmHg FINDINGS LEFT VENTRICLE Normal left ventricular size. Wall thickness is normal. The left ventricular systolic function is normal with an estimated ejection fraction of 55%. RIGHT VENTRICLE Normal right ventricular size and systolic function. LEFT ATRIUM The left atrial size is normal. RIGHT ATRIUM The right atrial size is normal. ATRIAL SEPTUM Normal atrial septal thickness without atrial level shunting by limited color doppler interrogation. AORTA The aortic root and proximal ascending aorta are normal in size on limited imaging. MITRAL VALVE Structurally normal mitral valve. No mitral valve stenosis or regurgitation. AORTIC VALVE Hyperechoic sturcture noted on aortic valve. Possible vegetation. TRICUSPID VALVE The estimated pulmonary arterial pressure is 28 mmHg. There is mild tricuspid valve regurgitation. . PULMONARY VALVE No pulmonary valve regurgitation or stenosis. VESSELS The inferior vena cava is normal in size. PERICARDIUM No pericardial effusion. Lindy Dillon MD, FACC (Electronically Signed) Final Date:07 September 2018 18:36
[2018-09-07] MEDS: Enoxaparin Inj 100 MG/ML Syringe SQ SCH (21:20)
[2018-09-08] MEDS ORDERED: Pharmacy Ordered Lab Info OTHER ONE (00:45)
[2018-09-08] MEDS: Morphine Sulfate Inj 2 MG/ML Vial IV.PUSH PRN ×2 (03:00→10:42)
[2018-09-08] MEDS: Vancomycin Inj 1,750 MG in Sodium Chlor 0.9% Inj 500 ML IV.SIG SCH ×2 (03:01→12:11)
[2018-09-08 03:19] LABS: Baso # (Auto) 0.1 th/mm3 (0.0-0.2); Baso % (Auto) 0.8 % (0.0-2.0); Eos # (Auto) 0.4 th/mm3 (0.0-0.4); Eos % (Auto) 3.1 % (0.0-4.0); Hematocrit 29.8 % (39.0-51.0); Hemoglobin 10.1 gm/dL (13.0-17.0); Lymph # (Auto) 1.6 th/mm3 (1.0-4.8); Mean Corpuscular HGB Conc 34.1 % (32.0-36.0); Mean Corpuscular Hemoglobin 30.4 pg (27.0-34.0); Mean Corpuscular Volume 89.2 fL (80.0-100.0); Mono # (Auto) 2.2 th/mm3 (0.0-0.9); Mono % (Auto) 17.7 % (0.0-8.0); Neut # (Auto) 8.1 th/mm3 (1.8-7.7); Neut % (Auto) 65.4 % (16.0-70.0); Platelet Count 718 th/mm3 (150-450); Red Blood Count 3.34 mil/mm3 (4.50-5.90); Red Cell Distribution Width 13.3 % (11.6-17.2); White Blood Count 12.3 th/mm3 (4.0-11.0)
[2018-09-08 03:51] LABS: DS DNA Ab (Crithidia) NEGATIVE (NEGATIVE)
[2018-09-08 04:20] LABS: Platelet Morphology Normal (Normal)
[2018-09-08 04:23] LABS: Helmet Cells 1+
[2018-09-08] MEDS: Acetaminophen 325 MG Tablet PO PRN ×2 (04:39→23:13)
[2018-09-08] MEDS: Sod Chloride 0.9% Inj 1,000 ML IV.CONT SCH ×4 (06:29→20:28)
[2018-09-08] MEDS: Senna/Docusate Sodium 8.6/50 MG Tablet PO SCH ×2 (08:21→20:31)
[2018-09-08] MEDS: Enoxaparin Inj 100 MG/ML Syringe SQ SCH ×2 (08:22→20:30)
[2018-09-08] MEDS: Azithromycin 250 MG Tablet PO SCH (08:22)
--- NOTE | 2018-09-08 10:32 | P.PNONC ---
Subjective Interval history: Patient sitting up in bed, in no acute distress. Denies any chest pain shortness of breath or bleeding. Reports continued pain to right knee and left ankle joints. Objective Vital Signs/Intake & Output: Vital Signs 09/07/18 12:40 09/07/18 17:19 09/07/18 21:12 Temperature 98.1 F 98.4 F 98.2 F Pulse Rate 90 86 83 Respiratory Rate 16 16 16 Blood Pressure 169/99 H 158/96 H 142/92 H Pulse Oximetry 96 96 94 L 09/08/18 00:00 09/08/18 02:57 09/08/18 08:16 Temperature 98.1 F 98.2 F 98 F Pulse Rate 78 80 84 Respiratory Rate 16 16 20 Blood Pressure 158/96 H 175/106 H 181/110 H Pulse Oximetry 96 96 97 Intake & Output 09/07/18 09/08/18 09/08/18 18:59 06:59 18:59 Intake Total 2860.0 / 2860.0 1957.5 / 1957.5 Output Total 475 / 475 1090 / 1090 1060 / 1060 Balance 2385.0 / 2385.0 867.5 / 867.5 -1060 / -1060 Weight 93 kg Intake: IV 2135.0 / 2135.0 1717.5 / 1717.5 NS Inj 1,000 ML @ 100 mls/hr IV 1000 / 1000 1000 / 1000 .CONT .Q10H [facility] Rx#:[id number] Maxipime Inj 2,000 MG In NS Inj 100 / 100 200 / 200 100 ML @ 200 mls/hr IV.SIG Q8H [facility] Rx#:[id number] Vancomycin Inj 1,750 MG In NS 1035.0 / 1035.0 517.5 / 517.5 Inj 500 ML @ 250 mls/hr IV.SIG Q12H [facility] Rx#:[id number] Oral 725 / 725 240 / 240 Output: Urine 475 / 475 1090 / 1090 1060 / 1060 Other: Date of Last Bowel Movement 09/07/18 09/06/18 # Bowel Movements 2 Result Diagrams: 09/08/18 02:44 09/07/18 06:20 Laboratory Results: Laboratory Results - last 24 hr 02/20/19 02/22/19 02/24/19 11:39 09:42 09:31 WBC RBC Hgb Hct MCV MCH MCHC RDW Plt Count MPV Prelim Diff (Auto) Neut % (Auto) Lymph % (Auto) [place] % (Auto) Eos % (Auto) Baso % (Auto) Neut # (Auto) Lymph # (Auto) [place] # (Auto) Eos # (Auto) Baso # (Auto) WBC Differential Diff Scan Differential Comment Platelet Estimate Platelet Morphology Helmet Cells Vancomycin Trough Rheumatoid Factor Less than 14 YOBANI Screen Negative YOBANI Titer ND YOBANI Pattern ND SS-A Antibody <1.0 neg SS-B Antibody <1.0 neg Sm (Khan) Antibody <1.0 neg SM/DEPARTMENT STORE GENERAL MANAGER Antibody <1.0 neg Scl-70 Antibody <1.0 neg Anti-ds DNA Titer (Crith) ND Anti-ds DNA (Crithidia) Negative Marrow Immunophenotype HIV-1 DNA (PCR) Not detected Calreticulin Mutation MPL Mut Analysis Result 09/06/18 09/08/18 09/08/18 16:00 02:44 02:44 WBC 12.3 H RBC 3.34 L Hgb 10.1 L Hct 29.8 L MCV 89.2 MCH 30.4 MCHC 34.1 RDW 13.3 Plt Count 718 H MPV 7.0 Prelim Diff (Auto) Slide review pending Neut % (Auto) 65.4 Lymph % (Auto) 13.0 [place] % (Auto) 17.7 H Eos % (Auto) 3.1 Baso % (Auto) 0.8 Neut # (Auto) 8.1 H Lymph # (Auto) 1.6 [place] # (Auto) 2.2 H Eos # (Auto) 0.4 Baso # (Auto) 0.1 WBC Differential . Diff Scan Auto diff confirmed Differential Comment . Platelet Estimate High H Platelet Morphology Normal Helmet Cells 1+ H Vancomycin Trough 14.6 H Rheumatoid Factor YOBANI Screen YOBANI Titer YOBANI Pattern SS-A Antibody SS-B Antibody Sm (Khan) Antibody SM/DEPARTMENT STORE GENERAL MANAGER Antibody Scl-70 Antibody Anti-ds DNA Titer (Crith) Anti-ds DNA (Crithidia) Marrow Immunophenotype HIV-1 DNA (PCR) Calreticulin Mutation MPL Mut Analysis Result Culture Results: Microbiology 09/03/18 12:00 Aerobic Blood Culture - Preliminary Blood - Peripheral No growth in 4 days Anaerobic Blood Culture - Preliminary No growth in 4 days 09/03/18 12:05 Aerobic Blood Culture - Preliminary Blood - Peripheral No growth in 4 days Anaerobic Blood Culture - Preliminary No growth in 4 days 09/01/18 14:18 Aerobic Blood Culture - Final Blood - Peripheral No growth in 5 days Anaerobic Blood Culture - Final No growth in 5 days 09/01/18 14:26 Aerobic Blood Culture - Final Blood - Peripheral No growth in 5 days Anaerobic Blood Culture - Final No growth in 5 days 09/01/18 05:33 Aerobic Blood Culture - Final Blood - Peripheral No growth in 5 days Anaerobic Blood Culture - Final No growth in 5 days 09/01/18 05:25 Aerobic Blood Culture - Final Blood - Peripheral No growth in 5 days Anaerobic Blood Culture - Final No growth in 5 days Medications: Active Medications Generic Name Dose Route Start Last Admin Trade Name Freq PRN Reason Stop Dose Admin Acetaminophen 650 mg 08/30/18 11:41 09/08/18 04:39 Tylenol PO 650 mg Q4H PRN Administration headache/fever/pain 1-4 Azithromycin 500 mg 08/30/18 22:00 09/08/18 08:22 Zithromax PO 500 mg DAILY [facility] Administration Enalaprilat 2.5 mg 09/07/18 13:55 09/08/18 08:21 Vasotec Inj IV.PUSH 2.5 mg Q6H PRN Administration SBP>160, DBP>90 Enoxaparin Sodium 90 mg 09/07/18 21:00 09/08/18 08:22 Lovenox Inj SQ 90 mg Q12HR [facility] Administration Sodium Chloride 1,000 mls @ 100 mls/hr 08/31/18 17:45 09/08/18 06:30 Ns Inj IV.CONT Not Given .Q10H [facility] Cefepime HCl 2,000 mg/ Sodium 100 mls @ 200 mls/hr 09/02/18 09:00 09/08/18 08 :32 Chloride IV.SIG 200 mls/hr Q8H [facility] Administration Vancomycin HCl 1,750 mg/ 517.5 mls @ 250 mls/hr 09/06/18 13:00 09/08/18 05:42 Sodium Chloride IV.SIG Infused Q12H [facility] Infusion Indomethacin 50 mg 09/03/18 15:00 09/08/18 06:29 Indocin PO 50 mg Q8HR [facility] Administration Morphine Sulfate 2 mg 09/07/18 17:23 09/08/18 03:00 Morphine Inj IV.PUSH 2 mg Q4H PRN Administration BREAKTHROUGH PAIN Pantoprazole Sodium 40 mg 09/03/18 14:30 09/08/18 08:21 Protonix PO 40 mg DAILY [facility] Administration Senna/Docusate Sodium 1 tab 08/30/18 09:00 09/08/18 08:21 Valery-Colace PO 1 tab BID [facility] Administration Sodium Chloride 2 ml 08/30/18 09:00 09/07/18 23:53 Ns Flush IV.FLUSH Not Given BID [facility] Tramadol HCl 50 mg 08/30/18 11:42 09/08/18 08:22 Ultram PO 50 mg Q6H PRN Administration pain scale 5 to 10 Objective Remarks: GENERAL: Well-nourished, well-developed male patient, no acute distress. SKIN: Warm and dry. Vitiligo present on upper and lower extremities. Bone marrow biopsy sites to sacral area dressing dry and intact. HEAD: Normocephalic. EYES: No scleral icterus. No injection or drainage. NECK: Supple, trachea midline. CARDIOVASCULAR: Regular rate and rhythm without murmurs. RESPIRATORY: Anterior breath sounds clear, equal bilaterally. Nonlabored at rest. GASTROINTESTINAL: Abdomen soft, nontender, nondistended. EXTREMITIES: No cyanosis. Joint swelling to right hand somewhat improved. Swelling noted to right knee limiting mobility. Redness and inflammation noted to bilateral feet with swelling and inflammation noted to bilateral great toes as well as redness noted to left medial ankle. MUSCULOSKELETAL: Adequate muscle tone. NEUROLOGICAL: No obvious focal deficit. Awake, alert, and oriented x3. Assessment/Plan - Plan Mr. guzman is a pleasant 57-year-old gentleman currently hospitalized with pneumonia and splenic infarct. Plan: 1. 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 myeloproliferative work up pending. Status post bone marrow biopsy 09/06/2018, continues on Lovenox. 2. Leukocytosis, thrombocytosis, CBC in a.m. Bone marrow results pending. 2. Fever, secondary to splenic infarct and pneumonia. Afebrile today. Continues on azithromycin and cefepime. ID team following. 3. Arthritic pain, increased swelling right knee. + RF. Starting prednisone 50 mg daily. 4. Continue supportive measures.
--- NOTE | 2018-09-08 14:37 | P.PNIM ---
Subjective Interval history: The patient says he has less pain today. Patient is started on prednisone also had morphine for breakthrough pain. Will discontinue tramadol and try [place] and will taper down morphine. Says swelling and pain in his right arm right knee is improving also he has swelling and pain in his left ankle which is also improving. No fever or chills overnight. Eating better. No abdominal pain. No cough. Physical Exam Vital signs: Vital Signs 09/07/18 17:19 09/07/18 21:12 09/08/18 00:00 Temperature 98.4 F 98.2 F 98.1 F Pulse Rate 86 83 78 Respiratory Rate 16 16 16 Blood Pressure 158/96 H 142/92 H 158/96 H Pulse Oximetry 96 94 L 96 09/08/18 02:57 09/08/18 08:16 09/08/18 12:13 Temperature 98.2 F 98 F 97.7 F Pulse Rate 80 84 76 Respiratory Rate 16 20 16 Blood Pressure 175/106 H 181/110 H 131/96 H Pulse Oximetry 96 97 94 L Intake & Output 09/07/18 09/08/18 09/08/18 18:59 06:59 18:59 Intake Total 2860.0 / 2860.0 1957.5 / 1957.5 100 / 100 Output Total 475 / 475 1090 / 1090 1060 / 1060 Balance 2385.0 / 2385.0 867.5 / 867.5 -960 / -960 Weight 93 kg Intake: IV 2135.0 / 2135.0 1717.5 / 1717.5 100 / 100 NS Inj 1,000 ML @ 100 mls/hr IV 1000 / 1000 1000 / 1000 .CONT .Q10H [facility] Rx#:[id number] Maxipime Inj 2,000 MG In NS Inj 100 / 100 200 / 200 100 / 100 100 ML @ 200 mls/hr IV.SIG Q8H [facility] Rx#:[id number] Vancomycin Inj 1,750 MG In NS 1035.0 / 1035.0 517.5 / 517.5 Inj 500 ML @ 250 mls/hr IV.SIG Q12H [facility] Rx#:[id number] Oral 725 / 725 240 / 240 Output: Urine 475 / 475 1090 / 1090 1060 / 1060 Other: Date of Last Bowel Movement 09/07/18 09/06/18 # Bowel Movements 2 Narrative: GENERAL: Pleasant 57-year-old male, appears in not acute distress SKIN: Warm and dry. No rash. Right hand with swelling improving. CARDIOVASCULAR: Regular rate and rhythm. No murmur appreciated. RESPIRATORY: No accessory muscle use. Clear to auscultation. Breath sounds equal bilaterally. GASTROINTESTINAL: Abdomen soft, nondistended, left upper quadrant tenderness to palpation. Normoactive bowel sounds x4. MUSCULOSKELETAL: No obvious deformities. Extremities without clubbing, cyanosis. Right hand edema more on fingers. Right knee swelling, no erythema, painful. NEUROLOGICAL: Awake and alert. No obvious cranial nerve deficits. Moving all extremities spontaneously. Normal speech. PSYCHIATRIC: Appropriate mood and affect; insight and judgment normal. Results Labs CBC & Chem 7: 09/08/18 02:44 09/07/18 06:20 Labs: Microbiology 09/03/18 12:00 Blood - Peripheral Aerobic Blood Culture - Final No growth in 5 days 09/03/18 12:00 Blood - Peripheral Anaerobic Blood Culture - Final No growth in 5 days 09/03/18 12:05 Blood - Peripheral Aerobic Blood Culture - Final No growth in 5 days 09/03/18 12:05 Blood - Peripheral Anaerobic Blood Culture - Final No growth in 5 days Assessment and Plan Plan 57-year-old male with no significant past medical history presents to the emergency department for evaluation of left-sided abdominal/flank pain. 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 Unknown etiology of thrombosis. -Echocardiogram showed normal EF 55-60%; however there appears to be an echolucent linear structure which may represent atheromatous plaque, calcification of the noncoronary cusp of the aortic valve, or possible artifact ; recommended to consider chest CTA for further evaluation. Chest CTA rev. -Hematology consulted, appreciate recommendations, hypercoagulable and myeloproliferative workup in progress -Per hematology, continue while inpatient anticoagulation with Lovenox, can discharge on Eliquis. -09/01 with edema in right hand and arm, US doppler with superficial thrombus. Note patient reports h/o poss SLE and also h/o gout. RF is positive needs to follow up as OP with rheumatology. Started on prednisone - repeat ECHO to r/o endocarditis 09/07, rev Hyperechoic structure noted on aortic valve. Possible vegetation. Discussed with Dr Eddie GOMEZ specialist -Oncology Dr. Ledesma recommends bone marrow biopsy to rule out myelodysplastic syndrome -S/P bone marrow biopsy by IR on 09/06/18 -Patient with more pain and elevated BP on 09/07 add morphine for breakthrough pain - started on prednisone, discontinue tramadol. Add [place] per pain scale and keep morphine for breakthrough pain, tapered down morphine. Sepsis with Community-acquired pneumonia/POss endocarditis aortic valve: Patient with 2-week history of cough. +leukocytosis with WBC 15K, fever Tmax 101.2, and suspected source-pneumonia. The patient is with splenic infarct, bilateral pneumonia with possible septic emboli. Plan for echo with echodensity to rule out probable endocarditis. Also rule out noninfectious causes of thromboembolic diseases.. Check HIV screen and PCR. ID following -Chest x-ray reviewed, shows minimal ill-defined infiltrate in the lungs -Blood cultures with NGTD -Repeat blood cultures ordered with spike of fever today 08/31 -Check sputum culture and influenza -Give IVF hydration -temp 102 noted on 09/01/18 repeat blood cx, consult ID, antibiotics changed per ID recommendations, continue azithromycin and started on cefepime IV. Persistent fevers until 09/03 - repeat ECHO to r/o endocarditis 09/07, rev: Hyperechoic structure noted on aortic valve. Possible vegetation. Discussed with Dr Eddie OGMEZ specialist Hypertension: No history of high blood pressure, although BP has been elevated throughout admission, likely exacerbated by pain -Control pain with tramadol as needed -IV Vasotec prn -Monitor BP, add antihypertensives as needed History of gout. uric acid nl. DVT prophylaxis: Teds/SCDs; lovenox Discussed with the patient, nurse DC when cleared by ID and hem/ onc s/p bone marrow biopsy. Progress Note: Quality VTE Deep Vein Thrombosis/Pulmonary Embolism Present on Admission: No
[2018-09-09] MEDS: Vancomycin Inj 1,750 MG in Sodium Chlor 0.9% Inj 500 ML IV.SIG SCH ×2 (01:46→14:00)
[2018-09-09 06:35] LABS: Glomerular Filtration Rate Greater Than 89 mL/min (>89)
[2018-09-09] MEDS: Azithromycin 250 MG Tablet PO SCH (09:20)
[2018-09-09] MEDS: Senna/Docusate Sodium 8.6/50 MG Tablet PO SCH ×2 (10:42→22:43)
[2018-09-09] MEDS: Enoxaparin Inj 100 MG/ML Syringe SQ SCH ×2 (11:02→22:39)
[2018-09-09] MEDS: Sod Chloride 0.9% Inj 1,000 ML IV.CONT SCH (12:58)
--- NOTE | 2018-09-09 16:54 | P.PNIM ---
Subjective Interval history: The margin of the bed. Says he still has pain especially in his right knee and also left ankle. No fever or chills overnight. No cough. Says he tried to skip some pain medications overnight and has more pain. No nausea or vomiting. Able to eat. Physical Exam Vital signs: Vital Signs 09/08/18 20:00 09/08/18 21:45 09/08/18 23:06 Temperature 98.5 F 97.9 F Pulse Rate 82 74 Respiratory Rate 16 16 Blood Pressure 155/100 H 169/103 H 147/92 H Pulse Oximetry 95 95 09/09/18 05:12 09/09/18 06:13 09/09/18 06:30 Temperature 97.9 F Pulse Rate 67 Respiratory Rate 16 Blood Pressure 171/101 H 186/106 H 171/101 H Pulse Oximetry 95 09/09/18 09:18 09/09/18 11:05 09/09/18 15:46 Temperature 98.7 F 97.9 F Pulse Rate 86 84 98 H Respiratory Rate 16 16 16 Blood Pressure 158/98 H 169/104 H 165/106 H Pulse Oximetry 96 96 97 Intake & Output 09/08/18 09/09/18 09/09/18 18:59 06:59 18:59 Intake Total 1717.5 / 1717.5 857.5 / 857.5 1100 / 1100 Output Total 2960 / 2960 1465 / 1465 Balance -1242.5 / -1242.5 -607.5 / -607.5 1100 / 1100 Weight 97 kg Intake: IV 1717.5 / 1717.5 617.5 / 617.5 1100 / 1100 NS Inj 1,000 ML @ 100 mls/hr IV 1000 / 1000 1000 / 1000 .CONT .Q10H [facility] Rx#:[id number] Maxipime Inj 2,000 MG In NS Inj 200 / 200 100 / 100 100 / 100 100 ML @ 200 mls/hr IV.SIG Q8H [facility] Rx#:[id number] Vancomycin Inj 1,750 MG In NS 517.5 / 517.5 517.5 / 517.5 Inj 500 ML @ 250 mls/hr IV.SIG Q12H [facility] Rx#:[id number] Oral 240 / 240 Output: Urine 2960 / 2960 1465 / 1465 Other: Date of Last Bowel Movement 09/08/18 09/09/18 Narrative: GENERAL: Pleasant 57-year-old male, appears in not acute distress SKIN: Warm and dry. No rash. Right hand with swelling improving. CARDIOVASCULAR: Regular rate and rhythm. No murmur appreciated. RESPIRATORY: No accessory muscle use. Clear to auscultation. Breath sounds equal bilaterally. GASTROINTESTINAL: Abdomen soft, nondistended, left upper quadrant tenderness to palpation. Normoactive bowel sounds x4. MUSCULOSKELETAL: No obvious deformities. Extremities without clubbing, cyanosis. Right hand edema more on fingers. Right knee swelling, no erythema, painful. NEUROLOGICAL: Awake and alert. No obvious cranial nerve deficits. Moving all extremities spontaneously. Normal speech. PSYCHIATRIC: Appropriate mood and affect; insight and judgment normal. Results Labs CBC & Chem 7: 09/08/18 02:44 09/09/18 04:52 Assessment and Plan Plan 57-year-old male with no significant past medical history presents to the emergency department for evaluation of left-sided abdominal/flank pain. 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 Unknown etiology of thrombosis. -Echocardiogram showed normal EF 55-60%; however there appears to be an echolucent linear structure which may represent atheromatous plaque, calcification of the noncoronary cusp of the aortic valve, or possible artifact ; recommended to consider chest CTA for further evaluation. Chest CTA rev. -Hematology consulted, appreciate recommendations, hypercoagulable and myeloproliferative workup in progress -Per hematology, continue while inpatient anticoagulation with Lovenox, can discharge on Eliquis. -09/01 with edema in right hand and arm, US doppler with superficial thrombus. Note patient reports h/o poss SLE and also h/o gout. RF is positive needs to follow up as OP with rheumatology. Started on prednisone - repeat ECHO to r/o endocarditis 09/07, rev Hyperechoic structure noted on aortic valve. Possible vegetation. Discussed with Dr Eddie GOMEZ specialist -Oncology Dr. Ledesma recommends bone marrow biopsy to rule out myelodysplastic syndrome -S/P bone marrow biopsy by IR on 09/06/18 rev and normal. -Patient with more pain and elevated BP on 09/07 add morphine for breakthrough pain - started on prednisone, discontinue tramadol. Add [place] per pain scale and keep morphine for breakthrough pain, tapered down morphine. Sepsis with Community-acquired pneumonia/Poss endocarditis aortic valve: Patient with 2-week history of cough. +leukocytosis with WBC 15K, fever Tmax 101.2, and suspected source-pneumonia. The patient is with splenic infarct, bilateral pneumonia with possible septic emboli. Plan for echo with echodensity to rule out probable endocarditis. Also rule out noninfectious causes of thromboembolic diseases.. Check HIV screen and PCR. ID following -Chest x-ray reviewed, shows minimal ill-defined infiltrate in the lungs -Blood cultures with NGTD -Repeat blood cultures ordered with spike of fever today 08/31 -Check sputum culture and influenza -Give IVF hydration -temp 102 noted on 09/01/18 repeat blood cx, consult ID, antibiotics changed per ID recommendations, continue azithromycin and started on cefepime IV. Persistent fevers until 09/03 - repeat ECHO to r/o endocarditis 09/07, rev: Hyperechoic structure noted on aortic valve. Possible vegetation. Discussed with Dr Eddie GOMEZ specialist Hypertension: No history of high blood pressure, although BP has been elevated throughout admission, likely exacerbated by pain -Control pain with tramadol as needed -IV Vasotec prn -Monitor BP, add antihypertensives as needed History of gout. uric acid nl. DVT prophylaxis: Teds/SCDs; lovenox Discussed with the patient, nurse DC when cleared by ID and hem/ onc s/p bone marrow biopsy rev and normal. Patient needs prolonged IV abx discussed with Dr Eddie GOMEZ and also CM. Progress Note: Quality VTE Deep Vein Thrombosis/Pulmonary Embolism Present on Admission: No
--- NOTE | 2018-09-09 17:00 | P.PNADD ---
Addendum to Inpatient Note Reason for Addendum: Additional Documentation Additional information: Frank Shell: await input from Hematology about pathology report. Cytology pending. Added further workup for culture negative endocarditis such as Bartonella, Legionella, fungi and AFB. Stopped Vanco IV Stop Cefepime IV Start Ceftriaxone IV Start Doxy oral Will likely need 6 weeks IV as outpatient Will need outpatient ID follow up with Dr.Reba Erazo.
--- NOTE | 2018-09-09 17:31 | P.PNONC ---
Subjective Interval history: Resting comfortably in bed. Reports decrease in size of right middle finger joint and right knee joint. These have still not returned to baseline. Objective Vital Signs/Intake & Output: Vital Signs 09/08/18 20:00 09/08/18 21:45 09/08/18 23:06 Temperature 98.5 F 97.9 F Pulse Rate 82 74 Respiratory Rate 16 16 Blood Pressure 155/100 H 169/103 H 147/92 H Pulse Oximetry 95 95 09/09/18 05:12 09/09/18 06:13 09/09/18 06:30 Temperature 97.9 F Pulse Rate 67 Respiratory Rate 16 Blood Pressure 171/101 H 186/106 H 171/101 H Pulse Oximetry 95 09/09/18 09:18 09/09/18 11:05 09/09/18 15:46 Temperature 98.7 F 97.9 F Pulse Rate 86 84 98 H Respiratory Rate 16 16 16 Blood Pressure 158/98 H 169/104 H 165/106 H Pulse Oximetry 96 96 97 Intake & Output 09/08/18 09/09/18 09/09/18 18:59 06:59 18:59 Intake Total 1717.5 / 1717.5 857.5 / 857.5 1100 / 1100 Output Total 2960 / 2960 1465 / 1465 Balance -1242.5 / -1242.5 -607.5 / -607.5 1100 / 1100 Weight 97 kg Intake: IV 1717.5 / 1717.5 617.5 / 617.5 1100 / 1100 NS Inj 1,000 ML @ 100 mls/hr IV 1000 / 1000 1000 / 1000 .CONT .Q10H [facility] Rx#:[id number] Maxipime Inj 2,000 MG In NS Inj 200 / 200 100 / 100 100 / 100 100 ML @ 200 mls/hr IV.SIG Q8H [facility] Rx#:[id number] Vancomycin Inj 1,750 MG In NS 517.5 / 517.5 517.5 / 517.5 Inj 500 ML @ 250 mls/hr IV.SIG Q12H [facility] Rx#:[id number] Oral 240 / 240 Output: Urine 2960 / 2960 1465 / 1465 Other: Date of Last Bowel Movement 09/08/18 09/09/18 Result Diagrams: 09/08/18 02:44 09/09/18 04:52 Laboratory Results: Laboratory Results - last 24 hr 09/09/18 04:52 Creatinine 0.53 L Estimated GFR Greater than 89 Culture Results: Microbiology 09/03/18 12:00 Aerobic Blood Culture - Final Blood - Peripheral No growth in 5 days Anaerobic Blood Culture - Final No growth in 5 days 09/03/18 12:05 Aerobic Blood Culture - Final Blood - Peripheral No growth in 5 days Anaerobic Blood Culture - Final No growth in 5 days Medications: Active Medications Generic Name Dose Route Start Last Admin Trade Name Freq PRN Reason Stop Dose Admin Acetaminophen 650 mg 08/30/18 11:41 09/08/18 23:13 Tylenol PO 650 mg Q4H PRN Administration headache/fever/pain 1-4 Hydrocodone Bitart/Acetaminophen 1 tab 09/08/18 12:33 09/09/18 14:18 [place] 5/325 PO 1 tab Q4H PRN Administration pain 2-6 Hydrocodone Bitart/Acetaminophen 1 tab 09/08/18 12:33 09/09/18 09:24 [place] 10/325 PO 1 tab Q4H PRN Administration pain>7 Azithromycin 500 mg 08/30/18 22:00 09/09/18 09:20 Zithromax PO 500 mg DAILY [facility] Administration Enalaprilat 2.5 mg 09/07/18 13:55 09/09/18 15:45 Vasotec Inj IV.PUSH 2.5 mg Q6H PRN Administration SBP>160, DBP>90 Enoxaparin Sodium 90 mg 09/07/18 21:00 09/09/18 11:02 Lovenox Inj SQ 90 mg Q12HR [facility] Administration Indomethacin 50 mg 09/03/18 15:00 09/09/18 14:18 Indocin PO 50 mg Q8HR [facility] Administration Losartan Potassium 25 mg 09/09/18 10:15 09/09/18 11:03 Cozaar PO 25 mg DAILY [facility] Administration Morphine Sulfate 2 mg 09/07/18 17:23 09/08/18 10:42 Morphine Inj IV.PUSH 2 mg Q4H PRN Administration BREAKTHROUGH PAIN Pantoprazole Sodium 40 mg 09/03/18 14:30 09/09/18 09:20 Protonix PO 40 mg DAILY [facility] Administration Prednisone 50 mg 09/08/18 09:00 09/09/18 11:58 Deltasone PO 50 mg DAILY [facility] Administration Senna/Docusate Sodium 1 tab 08/30/18 09:00 09/09/18 10:42 Valery-Colace PO Not Given BID [facility] Sodium Chloride 2 ml 08/30/18 09:00 09/09/18 11:58 Ns Flush IV.FLUSH 2 ml BID CULELN Administration Objective Remarks: GENERAL: Well-nourished, well-developed patient. SKIN: Warm and dry. HEAD: Normocephalic. EYES: No scleral icterus. No injection or drainage. NECK: Supple, trachea midline. No JVD or lymphadenopathy. LYMPHATIC: No adenopathy. CARDIOVASCULAR: Regular rate and rhythm without murmurs. RESPIRATORY: Breath sounds equal bilaterally. No accessory muscle use. GASTROINTESTINAL: Abdomen soft, non-tender, nondistended. EXTREMITIES: No cyanosis, or edema. MUSCULOSKELETAL: Adequate muscle tone. NEUROLOGICAL: No obvious focal deficit. Awake, alert, and oriented x3. Assessment/Plan - Plan Mr. guzman is a pleasant 57-year-old gentleman currently hospitalized with pneumonia and splenic infarct. Plan: 1. 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 Myeloproliferative work up unrevealing. Lovenox. Apixaan 5 mg BID as outpatient. 2. Leukocytosis, thrombocytosis likely reactive. 3. 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 On IV antibiotics. Case discussed with Dr. Morgan. 3. Arthritic pain, increased swelling right knee. + RF. Prednisone 50 mg daily.
--- NOTE | 2018-09-09 18:50 | P.DCO ---
Post Hospital Infusion Therapy - Infusion Therapy Location of Infusion Therapy: Home Health Care IV Infusion Order Appointment Date: 09/10/18 - Patient Information Patient Weight: 97 kg - Diagnosis (1) Endocarditis Code(s): I38 - Endocarditis, valve unspecified (2) Infarction of spleen Code(s): D73.5 - Infarction of spleen (3) Septic pulmonary embolism Code(s): I26.90 - Septic pulmonary embolism without acute cor pulmonale - Administer Medication Ceftriaxone Dose: 2 grams IV Directions: q 24 hours Start Treatment: 09/10/18 Stop Treatment: 10/14/18 - Additional Information Venous Access: PICC Line Additional Instructions: [x] Peripheral flush and dressing changes per protocol [x] 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 [] May leave port accessed during therapy. [] May leave peripheral site accessed for duration of therapy. [x] If patient has SOB or respiratory distress, check oxygen saturation. If less than 90% or clinical signs of respiratory distress, administer oxygen at 2 L/min. via nasal cannula and notify physician. [x] Anaphylaxis/Reaction orders: * Stop infusion. * Keep IV line open with saline flush. * Notify physician. * Monitor vital signs every 15 minutes until symptoms resolve. * Check Oxygen saturation; Oxygen at 2 L/min. via nasal cannula if less than 90% or clinical signs of respiratory distress. * Administer diphenhydramine (Benadryl) 25 mg IV STAT, (unless patient has received as pre-med). May repeat once, if necessary. * Solu-Cortef 250 mg IVP over 30-60 seconds, use 100 mg vials for each dissolution. * Epinephrine (1mg/1 ml) 0.3 mg subcutaneously or IVP now with any signs of respiratory distress. * Check with physician for new additional pre-med orders if patient is re- challenged or re-treated. [x] May remove PICC line when treatment complete, after confirming with Physician. [x] If the patient is admitted to the hospital, the ED, or transferred via [facility] , complete transfer form including medication reconciliation order sheet. Weekly Labs: CBC w/diff, Creatinine, CRP, LFTs (Hepatic Function Test) Additional Information: Please draw weekly labs and fax to the number provided below. If any abnormal lab values or change in clinical condition please call the number below. Dr.Reba Erazo office: Address: [address] [place] [address] - Case Management Consult Case Management Consult-IVF: Yes - Patient Information Allergies No Known Allergies Allergy (Verified 08/29/18 21:40)
--- NOTE | 2018-09-09 19:01 | P.PN ---
Subjective Interval history: Recd call from discussed the BM pathology is not cw any malignant process. Decided to have patient follow up with Dr.Reba Erazo as outpatient and treat patient as culture negative endocarditis. Frank Martinez will discharge on oral doxy for 42 days, Ceftriaxone 2 gm IV q24hrs for 42 days. Culture negative workup for Legionella, Aspergillus, Fungal workup, Bartonella sent. This will need to be followed as outpatient. I am placing orders for infusion approval by insurance company. Patient has significant pain my concern is him being able to self administer medications. Dw to wait and address this pain issue. If it continues to be a problem consider FDC placement. Physical Exam Vital signs: Vital Signs 09/08/18 20:00 09/08/18 21:45 09/08/18 23:06 Temperature 98.5 F 97.9 F Pulse Rate 82 74 Respiratory Rate 16 16 Blood Pressure 155/100 H 169/103 H 147/92 H Pulse Oximetry 95 95 09/09/18 05:12 09/09/18 06:13 09/09/18 06:30 Temperature 97.9 F Pulse Rate 67 Respiratory Rate 16 Blood Pressure 171/101 H 186/106 H 171/101 H Pulse Oximetry 95 09/09/18 09:18 09/09/18 11:05 09/09/18 15:46 Temperature 98.7 F 97.9 F Pulse Rate 86 84 98 H Respiratory Rate 16 16 16 Blood Pressure 158/98 H 169/104 H 165/106 H Pulse Oximetry 96 96 97 Intake & Output 09/08/18 09/09/18 09/09/18 18:59 06:59 18:59 Intake Total 1717.5 / 1717.5 857.5 / 857.5 1617.5 / 1617.5 Output Total 2960 / 2960 1465 / 1465 Balance -1242.5 / -1242.5 -607.5 / -607.5 1617.5 / 1617.5 Weight 97 kg 97 kg Intake: IV 1717.5 / 1717.5 617.5 / 617.5 1617.5 / 1617.5 NS Inj 1,000 ML @ 100 mls/hr IV 1000 / 1000 1000 / 1000 .CONT .Q10H [facility] Rx#:[id number] Maxipime Inj 2,000 MG In NS Inj 200 / 200 100 / 100 100 / 100 100 ML @ 200 mls/hr IV.SIG Q8H [facility] Rx#:[id number] Vancomycin Inj 1,750 MG In NS 517.5 / 517.5 517.5 / 517.5 517.5 / 517.5 Inj 500 ML @ 250 mls/hr IV.SIG Q12H [facility] Rx#:[id number] Oral 240 / 240 Output: Urine 2960 / 2960 1465 / 1465 Other: # Voids 6 Date of Last Bowel Movement 09/08/18 09/09/18 Results - Labs CBC & Chem 7: 09/08/18 02:44 09/09/18 04:52 Laboratory Results - last 24 hr 09/09/18 04:52 Creatinine 0.53 L Estimated GFR Greater than 89 Assessment and Plan - Assessment (1) Endocarditis Code(s): I38 - Endocarditis, valve unspecified Status: Acute (2) Infarction of spleen Code(s): D73.5 - Infarction of spleen Status: Acute (3) Septic pulmonary embolism Code(s): I26.90 - Septic pulmonary embolism without acute cor pulmonale Status : Acute
[2018-09-10] MEDS: Morphine Sulfate Inj 2 MG/ML Vial IV.PUSH PRN (03:25)
[2018-09-10] MEDS: Senna/Docusate Sodium 8.6/50 MG Tablet PO SCH ×2 (09:38→22:25)
[2018-09-10] MEDS: Enoxaparin Inj 100 MG/ML Syringe SQ SCH ×2 (09:42→22:10)
[2018-09-10] MEDS: Azithromycin 250 MG Tablet PO SCH (09:42)
--- NOTE | 2018-09-10 09:50 | P.PNONC ---
Subjective Interval history: Patient resting in bed with eyes closed on approach, awakens easily to voice. No acute distress. States that he was told that he will be through Wednesday at the latest. Reports his mobility has improved somewhat. Objective Vital Signs/Intake & Output: Vital Signs 09/09/18 11:05 09/09/18 15:46 09/09/18 20:00 Temperature 97.9 F Pulse Rate 84 98 H 84 Respiratory Rate 16 16 20 Blood Pressure 169/104 H 165/106 H 175/109 H Pulse Oximetry 96 97 98 09/10/18 00:00 09/10/18 00:49 09/10/18 04:00 Temperature 97.9 F 98.7 F Pulse Rate 73 78 Respiratory Rate 18 18 18 Blood Pressure 177/109 H 167/104 H Pulse Oximetry 96 96 09/10/18 04:06 09/10/18 09:33 Temperature 98.3 F Pulse Rate 83 Respiratory Rate 18 18 Blood Pressure 159/97 H Pulse Oximetry 97 Intake & Output 09/09/18 09/10/18 09/10/18 18:59 06:59 18:59 Intake Total 1617.5 / 1617.5 580 / 580 Output Total 1900 / 1900 Balance 1617.5 / 1617.5 -1320 / -1320 Weight 97 kg 97.3 kg Intake: IV 1617.5 / 1617.5 100 / 100 NS Inj 1,000 ML @ 100 mls/hr IV 1000 / 1000 .CONT .Q10H [facility] Rx#:[id number] Maxipime Inj 2,000 MG In NS Inj 100 / 100 100 ML @ 200 mls/hr IV.SIG Q8H [facility] Rx#:[id number] Vancomycin Inj 1,750 MG In NS 517.5 / 517.5 Inj 500 ML @ 250 mls/hr IV.SIG Q12H [facility] Rx#:[id number] Rocephin Inj 2,000 MG In NS Inj 100 / 100 100 ML @ 200 mls/hr IV.SIG Q24H [facility] Rx#:[id number] Oral 480 / 480 Output: Urine 1900 / 1900 Other: # Voids 6 Date of Last Bowel Movement 09/09/18 09/09/18 Result Diagrams: 09/10/18 09:20 09/09/18 04:52 Culture Results: Microbiology 09/03/18 12:00 Aerobic Blood Culture - Final Blood - Peripheral No growth in 5 days Anaerobic Blood Culture - Final No growth in 5 days 09/03/18 12:05 Aerobic Blood Culture - Final Blood - Peripheral No growth in 5 days Anaerobic Blood Culture - Final No growth in 5 days Medications: Active Medications Generic Name Dose Route Start Last Admin Trade Name Freq PRN Reason Stop Dose Admin Acetaminophen 650 mg 08/30/18 11:41 09/08/18 23:13 Tylenol PO 650 mg Q4H PRN Administration headache/fever/pain 1-4 Hydrocodone Bitart/Acetaminophen 1 tab 09/08/18 12:33 09/10/18 05:57 [place] 5/325 PO 1 tab Q4H PRN Administration pain 2-6 Hydrocodone Bitart/Acetaminophen 1 tab 09/08/18 12:33 09/09/18 22:40 [place] 10/325 PO 1 tab Q4H PRN Administration pain>7 Azithromycin 500 mg 08/30/18 22:00 09/09/18 09:20 Zithromax PO 500 mg DAILY [facility] Administration Doxycycline Hyclate 100 mg 09/09/18 21:00 09/09/18 22:41 Vibramycin PO 100 mg Q12HR [facility] Administration Enalaprilat 2.5 mg 09/07/18 13:55 09/10/18 05:54 Vasotec Inj IV.PUSH 2.5 mg Q6H PRN Administration SBP>160, DBP>90 Enoxaparin Sodium 90 mg 09/07/18 21:00 09/09/18 22:39 Lovenox Inj SQ 90 mg Q12HR [facility] Administration Ceftriaxone Sodium 2,000 mg/ 100 mls @ 200 mls/hr 09/09/18 20:00 09/09/18 23: 30 Sodium Chloride IV.SIG Infused Q24H [facility] Infusion Indomethacin 50 mg 09/03/18 15:00 09/10/18 05:53 Indocin PO 50 mg Q8HR [facility] Administration Losartan Potassium 25 mg 09/09/18 10:15 09/09/18 11:03 Cozaar PO 25 mg DAILY [facility] Administration Morphine Sulfate 2 mg 09/07/18 17:23 09/10/18 03:25 Morphine Inj IV.PUSH 2 mg Q4H PRN Administration BREAKTHROUGH PAIN Pantoprazole Sodium 40 mg 09/03/18 14:30 09/09/18 09:20 Protonix PO 40 mg DAILY [facility] Administration Prednisone 50 mg 09/08/18 09:00 09/09/18 11:58 Deltasone PO 50 mg DAILY [facility] Administration Senna/Docusate Sodium 1 tab 08/30/18 09:00 09/10/18 09:38 Valery-Colace PO Not Given BID [facility] Sodium Chloride 2 ml 08/30/18 09:00 09/09/18 22:43 Ns Flush IV.FLUSH 2 ml BID [facility] Administration Objective Remarks: GENERAL: Well-nourished, well-developed male patient, no acute distress. SKIN: Warm and dry. Vitiligo present on upper and lower extremities. Bone marrow biopsy sites to sacral area dressing dry and intact. HEAD: Normocephalic. EYES: No scleral icterus. No injection or drainage. NECK: Supple, trachea midline. CARDIOVASCULAR: Regular rate and rhythm without murmurs. RESPIRATORY: Anterior breath sounds clear, equal bilaterally. Nonlabored at rest. GASTROINTESTINAL: Abdomen soft, nontender, nondistended. EXTREMITIES: No cyanosis. Joint swelling to right hand improved. Swelling noted to right knee slightly improved. Swelling and redness to bilateral great toes and ankle joints has somewhat improved. MUSCULOSKELETAL: Adequate muscle tone. NEUROLOGICAL: No obvious focal deficit. Awake, alert, and oriented x3. Assessment/Plan - Plan Mr. guzman is a pleasant 57-year-old gentleman currently hospitalized with pneumonia and splenic infarct. Plan: 1. 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 Myeloproliferative work up unrevealing. Lovenox. Apixaban 5 mg BID as outpatient. 2. Leukocytosis, thrombocytosis likely reactive. 3. 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 On IV antibiotics. Case discussed with Dr. Morgan. 3. Arthritic pain, right knee swelling with some improvement noted. + RF. Prednisone 50 mg daily. - Attending Statement The exam, history, and the medical decision-making described in the above note were completed with the assistance of the mid-level provider. I reviewed and agree with the findings presented. I attest that I had a [id number] encounter with the patient on the same day, and personally performed and documented my assessment and findings in the medical record. Afebrile. Resting comfortably in bed. Improvement in joint swelling. Culture negative endocarditis: ID team following, planning to discharge on antibiotic therapy with outpatient ID follow up. Splenic vein thrombosis: currently on lovenox to be discharge on apixaban 5 mg PO BID Leukocytosis, thrombocytosis: reactive, bone marrow with no evidence of malignancy.
[2018-09-10 10:44] LABS: Baso % (Auto) 0.4 % (0.0-2.0); Eos # (Auto) 0.1 th/mm3 (0.0-0.4); Eos % (Auto) 0.8 % (0.0-4.0); Hematocrit 29.7 % (39.0-51.0); Hemoglobin 10.2 gm/dL (13.0-17.0); Lymph # (Auto) 2.7 th/mm3 (1.0-4.8); Lymph % (Auto) 21.5 % (9.0-44.0); Mean Corpuscular HGB Conc 34.5 % (32.0-36.0); Mean Corpuscular Hemoglobin 30.2 pg (27.0-34.0); Mean Corpuscular Volume 87.5 fL (80.0-100.0); Mean Platelet Volume 7.3 fL (7.0-11.0); Mono # (Auto) 1.7 th/mm3 (0.0-0.9); Mono % (Auto) 13.5 % (0.0-8.0); Neut # (Auto) 8.1 th/mm3 (1.8-7.7); Neut % (Auto) 63.8 % (16.0-70.0); Platelet Count 783 th/mm3 (150-450); Red Blood Count 3.39 mil/mm3 (4.50-5.90); Red Cell Distribution Width 13.3 % (11.6-17.2); White Blood Count 12.7 th/mm3 (4.0-11.0)
--- NOTE | 2018-09-10 14:34 | P.PNIM ---
Subjective Interval history: In bed appears in nad. He is having less pain. He is refusing ZPICC line placement, will consult ID for second opinion as patient want to go home on PO antibiotics. I discussed with the patient at length. Patient is also threatening that he will leave AMA. Physical Exam Vital signs: Vital Signs 09/09/18 15:46 09/09/18 20:00 09/10/18 00:00 Temperature 97.9 F 97.9 F Pulse Rate 98 H 84 73 Respiratory Rate 16 20 18 Blood Pressure 165/106 H 175/109 H 177/109 H Pulse Oximetry 97 98 96 09/10/18 00:49 09/10/18 04:00 09/10/18 04:06 Temperature 98.7 F Pulse Rate 78 Respiratory Rate 18 18 18 Blood Pressure 167/104 H Pulse Oximetry 96 09/10/18 09:33 09/10/18 12:00 Temperature 98.3 F 98.3 F Pulse Rate 83 82 Respiratory Rate 18 20 Blood Pressure 159/97 H 158/93 H Pulse Oximetry 97 96 Intake & Output 09/09/18 09/10/18 09/10/18 18:59 06:59 18:59 Intake Total 1617.5 / 1617.5 580 / 580 Output Total 1900 / 1900 Balance 1617.5 / 1617.5 -1320 / -1320 Weight 97 kg 97.3 kg Intake: IV 1617.5 / 1617.5 100 / 100 NS Inj 1,000 ML @ 100 mls/hr IV 1000 / 1000 .CONT .Q10H [facility] Rx#:[id number] Maxipime Inj 2,000 MG In NS Inj 100 / 100 100 ML @ 200 mls/hr IV.SIG Q8H [facility] Rx#:[id number] Vancomycin Inj 1,750 MG In NS 517.5 / 517.5 Inj 500 ML @ 250 mls/hr IV.SIG Q12H [facility] Rx#:[id number] Rocephin Inj 2,000 MG In NS Inj 100 / 100 100 ML @ 200 mls/hr IV.SIG Q24H [facility] Rx#:[id number] Oral 480 / 480 Output: Urine 1900 / 1900 Other: # Voids 6 Date of Last Bowel Movement 09/09/18 09/09/18 09/09/18 Narrative: GENERAL: Pleasant 57-year-old male, appears in not acute distress SKIN: Warm and dry. No rash. Right hand with swelling improving. CARDIOVASCULAR: Regular rate and rhythm. No murmur appreciated. RESPIRATORY: No accessory muscle use. Clear to auscultation. Breath sounds equal bilaterally. GASTROINTESTINAL: Abdomen soft, nondistended, left upper quadrant tenderness to palpation. Normoactive bowel sounds x4. MUSCULOSKELETAL: No obvious deformities. Extremities without clubbing, cyanosis. Right hand edema more on fingers. Right knee swelling, no erythema, painful. NEUROLOGICAL: Awake and alert. No obvious cranial nerve deficits. Moving all extremities spontaneously. Normal speech. PSYCHIATRIC: Appropriate mood and affect; insight and judgment normal. Results Labs CBC & Chem 7: 09/10/18 09:20 09/09/18 04:52 Assessment and Plan Plan 57-year-old male with no significant past medical history presents to the emergency department for evaluation of left-sided abdominal/flank pain. 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 Unknown etiology of thrombosis. -Echocardiogram showed normal EF 55-60%; however there appears to be an echolucent linear structure which may represent atheromatous plaque, calcification of the noncoronary cusp of the aortic valve, or possible artifact ; recommended to consider chest CTA for further evaluation. Chest CTA rev. -Hematology consulted, appreciate recommendations, hypercoagulable and myeloproliferative workup in progress -Per hematology, continue while inpatient anticoagulation with Lovenox, can discharge on Eliquis. -09/01 with edema in right hand and arm, US doppler with superficial thrombus. Note patient reports h/o poss SLE and also h/o gout. RF is positive needs to follow up as OP with rheumatology. Started on prednisone - repeat ECHO to r/o endocarditis 09/07, rev Hyperechoic structure noted on aortic valve. Possible vegetation. Discussed with Dr Eddie GOMEZ specialist -Oncology Dr. Ledesma recommends bone marrow biopsy to rule out myelodysplastic syndrome -S/P bone marrow biopsy by IR on 09/06/18 rev and normal. -Patient with more pain and elevated BP on 09/07 add morphine for breakthrough pain - started on prednisone, discontinue tramadol. Add [place] per pain scale and keep morphine for breakthrough pain, tapered down morphine. Sepsis with Community-acquired pneumonia/Poss endocarditis aortic valve: Patient with 2-week history of cough. +leukocytosis with WBC 15K, fever Tmax 101.2, and suspected source-pneumonia. The patient is with splenic infarct, bilateral pneumonia with possible septic emboli. Plan for echo with echodensity to rule out probable endocarditis. Also rule out noninfectious causes of thromboembolic diseases.. Check HIV screen and PCR. ID following -Chest x-ray reviewed, shows minimal ill-defined infiltrate in the lungs -Blood cultures with NGTD -Repeat blood cultures ordered with spike of fever today 08/31 -Check sputum culture and influenza -Give IVF hydration -temp 102 noted on 09/01/18 repeat blood cx, consult ID, antibiotics changed per ID recommendations, continue azithromycin and started on cefepime IV. Persistent fevers until 09/03 - repeat ECHO to r/o endocarditis 09/07, rev: Hyperechoic structure noted on aortic valve. Possible vegetation. Discussed with Dr Eddie GOMEZ specialist Hypertension: No history of high blood pressure, although BP has been elevated throughout admission, likely exacerbated by pain -Control pain with tramadol as needed -IV Vasotec prn -Monitor BP, add antihypertensives as needed History of gout. uric acid nl. DVT prophylaxis: Teds/SCDs; lovenox Discussed with the patient, nurse DC when cleared by ID and hem/ onc s/p bone marrow biopsy rev and normal. Patient needs prolonged IV abx discussed with Dr Eddie GOMEZ and also CM. Patient is however refusing PICC line placement, consult ID Progress Note: Quality VTE Deep Vein Thrombosis/Pulmonary Embolism Present on Admission: No
[2018-09-11] MEDS ORDERED: Pharmacy Ordered Lab Info OTHER ONE (00:45)
[2018-09-11 08:38] LABS: Baso % (Auto) 0.4 % (0.0-2.0); Eos # (Auto) 0.1 th/mm3 (0.0-0.4); Eos % (Auto) 0.9 % (0.0-4.0); Hematocrit 29.6 % (39.0-51.0); Hemoglobin 10.2 gm/dL (13.0-17.0); Lymph # (Auto) 3.2 th/mm3 (1.0-4.8); Lymph % (Auto) 26.6 % (9.0-44.0); Mean Corpuscular HGB Conc 34.3 % (32.0-36.0); Mean Corpuscular Hemoglobin 29.9 pg (27.0-34.0); Mono # (Auto) 1.8 th/mm3 (0.0-0.9); Mono % (Auto) 15.1 % (0.0-8.0); Platelet Count 732 th/mm3 (150-450); Red Cell Distribution Width 13.1 % (11.6-17.2); White Blood Count 12.2 th/mm3 (4.0-11.0)
--- NOTE | 2018-09-11 09:37 | P.PNONC ---
Subjective Interval history: Patient sitting up in bed with breakfast tray, in no acute distress. States that he is unwilling to get a PICC line after extensive Internet research. Patient states, "I have drawn a line in the sand and I am not getting a PICC line." Objective Vital Signs/Intake & Output: Vital Signs 09/10/18 12:00 09/10/18 15:51 09/10/18 20:00 Temperature 98.3 F 98 F 98.3 F Pulse Rate 82 78 83 Respiratory Rate 20 18 16 Blood Pressure 158/93 H 168/106 H 166/106 H Pulse Oximetry 96 95 99 09/11/18 00:00 09/11/18 04:00 09/11/18 06:30 Temperature Pulse Rate 65 66 Respiratory Rate 16 16 18 Blood Pressure 169/101 H 135/81 Pulse Oximetry 96 96 Intake & Output 09/10/18 09/11/18 09/11/18 18:59 06:59 18:59 Intake Total 1200 / 1200 240 / 240 Output Total 1200 / 1200 700 / 700 Balance 0 / 0 -460 / -460 Weight 93.2 kg Intake: Oral 1200 / 1200 240 / 240 Output: Urine 1200 / 1200 700 / 700 Other: Date of Last Bowel Movement 09/10/18 # Bowel Movements 2 Result Diagrams: 09/11/18 08:10 09/09/18 04:52 Laboratory Results: Laboratory Results - last 24 hr 09/10/18 09/11/18 09:20 08:10 WBC 12.7 H 12.2 H RBC 3.39 L 3.40 L Hgb 10.2 L 10.2 L Hct 29.7 L 29.6 L MCV 87.5 87.0 MCH 30.2 29.9 MCHC 34.5 34.3 RDW 13.3 13.1 Plt Count 783 H 732 H MPV 7.3 7.0 Neut % (Auto) 63.8 57.0 Lymph % (Auto) 21.5 26.6 [place] % (Auto) 13.5 H 15.1 H Eos % (Auto) 0.8 0.9 Baso % (Auto) 0.4 0.4 Neut # (Auto) 8.1 H 7.0 Lymph # (Auto) 2.7 3.2 [place] # (Auto) 1.7 H 1.8 H Eos # (Auto) 0.1 0.1 Baso # (Auto) 0.0 0.0 WBC Differential . . Differential Comment Auto diff final Auto diff final Culture Results: Microbiology 09/03/18 12:00 Aerobic Blood Culture - Final Blood - Peripheral No growth in 5 days Anaerobic Blood Culture - Final No growth in 5 days 09/03/18 12:05 Aerobic Blood Culture - Final Blood - Peripheral No growth in 5 days Anaerobic Blood Culture - Final No growth in 5 days Medications: Active Medications Generic Name Dose Route Start Last Admin Trade Name Freq PRN Reason Stop Dose Admin Acetaminophen 650 mg 08/30/18 11:41 09/08/18 23:13 Tylenol PO 650 mg Q4H PRN Administration headache/fever/pain 1-4 Hydrocodone Bitart/Acetaminophen 1 tab 09/08/18 12:33 09/11/18 07:40 [place] 5/325 PO 1 tab Q4H PRN Administration pain 2-6 Hydrocodone Bitart/Acetaminophen 1 tab 09/08/18 12:33 09/09/18 22:40 [place] 10/325 PO 1 tab Q4H PRN Administration pain>7 Azithromycin 500 mg 08/30/18 22:00 09/10/18 09:42 Zithromax PO 500 mg DAILY [facility] Administration Doxycycline Hyclate 100 mg 09/09/18 21:00 09/10/18 22:12 Vibramycin PO 100 mg Q12HR [facility] Administration Enalaprilat 2.5 mg 09/07/18 13:55 09/10/18 15:58 Vasotec Inj IV.PUSH 2.5 mg Q6H PRN Administration SBP>160, DBP>90 Enoxaparin Sodium 90 mg 09/07/18 21:00 09/10/18 22:10 Lovenox Inj SQ 90 mg Q12HR [facility] Administration Ceftriaxone Sodium 2,000 mg/ 100 mls @ 200 mls/hr 09/09/18 20:00 09/10/18 22: 10 Sodium Chloride IV.SIG 200 mls/hr Q24H [facility] Administration Indomethacin 50 mg 09/03/18 15:00 09/11/18 07:41 Indocin PO 50 mg Q8HR [facility] Administration Losartan Potassium 25 mg 09/09/18 10:15 09/10/18 09:43 Cozaar PO 25 mg DAILY [facility] Administration Morphine Sulfate 2 mg 09/07/18 17:23 09/10/18 03:25 Morphine Inj IV.PUSH 2 mg Q4H PRN Administration BREAKTHROUGH PAIN Pantoprazole Sodium 40 mg 09/03/18 14:30 09/10/18 09:42 Protonix PO 40 mg DAILY [facility] Administration Prednisone 50 mg 09/08/18 09:00 09/10/18 09:43 Deltasone PO 50 mg DAILY [facility] Administration Senna/Docusate Sodium 1 tab 08/30/18 09:00 09/10/18 22:25 Valery-Colace PO Not Given BID [facility] Sodium Chloride 2 ml 08/30/18 09:00 09/10/18 22:11 Ns Flush IV.FLUSH 2 ml BID [facility] Administration Objective Remarks: GENERAL: Well-nourished, well-developed male patient, no acute distress. SKIN: Warm and dry. Vitiligo present on upper and lower extremities. HEAD: Normocephalic. EYES: No scleral icterus. No injection or drainage. NECK: Supple, trachea midline. CARDIOVASCULAR: Regular rate and rhythm without murmurs. RESPIRATORY: Anterior breath sounds clear, equal bilaterally. No use of accessory muscles noted. GASTROINTESTINAL: Abdomen soft, nontender, nondistended. EXTREMITIES: No cyanosis. Joint swelling to right hand improved. Swelling noted to right knee with continued improvement. Swelling and redness to bilateral great toes and ankle joints has also improved. MUSCULOSKELETAL: Adequate muscle tone. NEUROLOGICAL: No obvious focal deficit. Awake, alert, and oriented x3. Assessment/Plan - Plan Mr. guzman is a pleasant 57-year-old gentleman currently hospitalized with pneumonia and splenic infarct. Plan: 1. 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 Myeloproliferative work up unrevealing. Lovenox. Apixaban 5 mg BID as outpatient. 2. Leukocytosis, thrombocytosis likely reactive. CBC pending. 3. 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 On IV antibiotics. Patient refusing PICC line, requesting oral antibiotic treatment, awaiting infectious disease. 3. Arthritic pain, right knee swelling with some improvement noted. + RF. Prednisone 50 mg daily. - Attending Statement The exam, history, and the medical decision-making described in the above note were completed with the assistance of the mid-level provider. I reviewed and agree with the findings presented. I attest that I had a [id number] encounter with the patient on the same day, and personally performed and documented my assessment and findings in the medical record. Resting comfortably in bed. Improvement in joints. Patient is declining PICC line and outpatient abx therapy as outlined by two ID attendings.
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
[2018-09-11] MEDS: Azithromycin 250 MG Tablet PO SCH (10:01)
[2018-09-11] MEDS: Enoxaparin Inj 100 MG/ML Syringe SQ SCH ×2 (10:02→22:33)
[2018-09-11] MEDS: Senna/Docusate Sodium 8.6/50 MG Tablet PO SCH ×3 (10:02→22:36)
--- NOTE | 2018-09-11 13:49 | P.PNIM ---
Subjective Interval history: The patient is in bed appears anxious, he did discuss with infectious disease Dr. Leyva regarding abx recommendations for second opinion. The patient is reluctant to have a PICC line however he agrees to have placed a PICC line. He however did not have place declined because she is does not " trust "the current tech he agrees tomorrow for PICC line with another tech. The patient swelling and pain in his arm is improved still some pain in his right knee and left ankle. No fever or chills overnight. No cough. Physical Exam Vital signs: Vital Signs 09/10/18 15:51 09/10/18 20:00 09/11/18 00:00 Temperature 98 F 98.3 F Pulse Rate 78 83 65 Respiratory Rate 18 16 16 Blood Pressure 168/106 H 166/106 H 169/101 H Pulse Oximetry 95 99 96 09/11/18 04:00 09/11/18 06:30 09/11/18 08:34 Temperature 98.2 F Pulse Rate 66 68 Respiratory Rate 16 18 20 Blood Pressure 135/81 169/103 H Pulse Oximetry 96 95 09/11/18 11:33 09/11/18 13:45 Temperature 98.3 F Pulse Rate 81 Respiratory Rate 20 Blood Pressure 169/101 H 165/104 H Pulse Oximetry 95 Intake & Output 09/10/18 09/11/18 09/11/18 18:59 06:59 18:59 Intake Total 1200 / 1200 240 / 240 Output Total 1200 / 1200 700 / 700 Balance 0 / 0 -460 / -460 Weight 93.2 kg Intake: Oral 1200 / 1200 240 / 240 Output: Urine 1200 / 1200 700 / 700 Other: Date of Last Bowel Movement 09/10/18 # Bowel Movements 2 Narrative: GENERAL: Pleasant 57-year-old male, appears in not acute distress SKIN: Warm and dry. No rash. Right hand with swelling improving. CARDIOVASCULAR: Regular rate and rhythm. No murmur appreciated. RESPIRATORY: No accessory muscle use. Clear to auscultation. Breath sounds equal bilaterally. GASTROINTESTINAL: Abdomen soft, nondistended, left upper quadrant tenderness to palpation. Normoactive bowel sounds x4. MUSCULOSKELETAL: No obvious deformities. Extremities without clubbing, cyanosis. Right hand edema more on fingers. Right knee swelling, no erythema, painful. NEUROLOGICAL: Awake and alert. No obvious cranial nerve deficits. Moving all extremities spontaneously. Normal speech. PSYCHIATRIC: Appropriate mood and affect; insight and judgment normal. Results Labs CBC & Chem 7: 09/11/18 08:10 09/09/18 04:52 Assessment and Plan Plan 57-year-old male with no significant past medical history presents to the emergency department for evaluation of left-sided abdominal/flank pain. 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 Unknown etiology of thrombosis. -Echocardiogram showed normal EF 55-60%; however there appears to be an echolucent linear structure which may represent atheromatous plaque, calcification of the noncoronary cusp of the aortic valve, or possible artifact ; recommended to consider chest CTA for further evaluation. Chest CTA rev. -Hematology consulted, appreciate recommendations, hypercoagulable and myeloproliferative workup in progress -Per hematology, continue while inpatient anticoagulation with Lovenox, can discharge on Eliquis. -09/01 with edema in right hand and arm, US doppler with superficial thrombus. Note patient reports h/o poss SLE and also h/o gout. RF is positive needs to follow up as OP with rheumatology. Started on prednisone - repeat ECHO to r/o endocarditis 09/07, rev Hyperechoic structure noted on aortic valve. Possible vegetation. Discussed with Dr Morgan ID specialist -Oncology Dr. Ledesma recommends bone marrow biopsy to rule out myelodysplastic syndrome -S/P bone marrow biopsy by IR on 09/06/18 rev and normal. -Patient with more pain and elevated BP on 09/07 add morphine for breakthrough pain - started on prednisone, discontinue tramadol. Add [place] per pain scale and keep morphine for breakthrough pain, tapered down morphine. Sepsis with Community-acquired pneumonia/Poss endocarditis aortic valve: Patient with 2-week history of cough. +leukocytosis with WBC 15K, fever Tmax 101.2, and suspected source-pneumonia. The patient is with splenic infarct, bilateral pneumonia with possible septic emboli. Plan for echo with echodensity to rule out probable endocarditis. Also rule out noninfectious causes of thromboembolic diseases.. Check HIV screen and PCR. ID following -Chest x-ray reviewed, shows minimal ill-defined infiltrate in the lungs -Blood cultures with NGTD -Repeat blood cultures ordered with spike of fever today 08/31 -Check sputum culture and influenza -Give IVF hydration -temp 102 noted on 2/21/19 repeat blood cx, consult ID, antibiotics changed per ID recommendations, continue azithromycin and started on cefepime IV. Persistent fevers until 09/03 - repeat ECHO to r/o endocarditis 09/07, rev: Hyperechoic structure noted on aortic valve. Possible vegetation. Discussed with Dr Eddie GOMEZ specialist Hypertension: No history of high blood pressure, although BP has been elevated throughout admission, likely exacerbated by pain -Control pain with tramadol as needed -IV Vasotec prn -Monitor BP, add antihypertensives as needed History of gout. uric acid nl. DVT prophylaxis: Teds/SCDs; lovenox Discussed with the patient, nurse DC when cleared by ID and hem/ onc s/p bone marrow biopsy rev and normal. Patient needs prolonged IV abx discussed with Dr Eddie GOMEZ and also CM. Patient is however refusing PICC line placement, consult ID for 2nd opinion per patient request as he wants antibiotics by mouth. The pt was seen by Dr Autumn GOMEZ, who recommends IV antibiotics and nicanor PO agree with this plan. Patient now agrees for IV anx however still reluctant to have a PICC line placed. Will attmept tomorrow for PICC line as patient refused current team says he doesn't trust one of the tech Progress Note: Quality VTE Deep Vein Thrombosis/Pulmonary Embolism Present on Admission: No
[2018-09-11 23:37] VITALS: RESP 16
[2018-09-12] MEDS: Azithromycin 250 MG Tablet PO SCH (10:12)
[2018-09-12] MEDS: Senna/Docusate Sodium 8.6/50 MG Tablet PO SCH (10:14)
[2018-09-12] MEDS: Enoxaparin Inj 100 MG/ML Syringe SQ SCH (10:20)
[2018-09-12 13:46] VITALS: BP 146/89; PULSE 69; TEMP 98; O2SAT 98
[2018-09-12] MEDS ORDERED: Heparin Central Flush 100 UNIT/ML 5 ML Vial IV.FLUSH PRN (14:56)
--- NOTE | 2018-09-12 15:42 | P.PNIM ---
Subjective Interval history: The patient is in the bed he appears to not acute distress. Says he has less pain in his right hand and less swelling. Also right knee improved. No fever or chills overnight no nausea or vomiting. No diarrhea or constipation. Agrees to PICC line. Discussed at length discharge plan patient expressed understanding. Physical Exam Vital signs: Vital Signs 09/11/18 16:00 09/11/18 20:00 09/11/18 23:45 Temperature 98.2 F 98.0 F Pulse Rate 81 78 Respiratory Rate 18 16 16 Blood Pressure 172/106 H 154/94 H Pulse Oximetry 96 96 09/11/18 23:56 09/12/18 04:00 09/12/18 06:06 Temperature Pulse Rate 72 65 Respiratory Rate 16 16 16 Blood Pressure 171/104 H 168/100 H Pulse Oximetry 97 95 09/12/18 09:30 09/12/18 11:45 Temperature 98.8 F 98.0 F Pulse Rate 68 69 Respiratory Rate 16 16 Blood Pressure 172/106 H 146/89 H Pulse Oximetry 95 98 Intake & Output 09/11/18 09/12/18 09/12/18 18:59 06:59 18:59 Intake Total 720 / 720 240 / 240 Output Total 1450 / 1450 1949 / 1950 Balance -730 / -730 -1710 / -1710 Weight 91.5 kg Intake: Oral 720 / 720 240 / 240 Output: Urine 1450 / 1450 1949 / 1950 Narrative: GENERAL: Pleasant 57-year-old male, appears in not acute distress SKIN: Warm and dry. No rash. Right hand with swelling and pain improved significantly. CARDIOVASCULAR: Regular rate and rhythm. No murmur appreciated. RESPIRATORY: No accessory muscle use. Clear to auscultation. Breath sounds equal bilaterally. GASTROINTESTINAL: Abdomen soft, nondistended, left upper quadrant tenderness to palpation. Normoactive bowel sounds x4. MUSCULOSKELETAL: No obvious deformities. Extremities without clubbing, cyanosis. Right hand edema more on fingers. Right knee swelling, no erythema, painful. NEUROLOGICAL: Awake and alert. No obvious cranial nerve deficits. Moving all extremities spontaneously. Normal speech. PSYCHIATRIC: Appropriate mood and affect; insight and judgment normal. Results Labs CBC & Chem 7: 09/11/18 08:10 09/09/18 04:52 Assessment and Plan Plan 57-year-old male with no significant past medical history presents to the emergency department for evaluation of left-sided abdominal/flank pain. 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 Unknown etiology of thrombosis. -Echocardiogram showed normal EF 55-60%; however there appears to be an echolucent linear structure which may represent atheromatous plaque, calcification of the noncoronary cusp of the aortic valve, or possible artifact ; recommended to consider chest CTA for further evaluation. Chest CTA rev. -Hematology consulted, appreciate recommendations, hypercoagulable and myeloproliferative workup in progress -Per hematology, continue while inpatient anticoagulation with Lovenox, can discharge on Eliquis. -09/01 with edema in right hand and arm, US doppler with superficial thrombus. Note patient reports h/o poss SLE and also h/o gout. RF is positive needs to follow up as OP with rheumatology. Started on prednisone - repeat ECHO to r/o endocarditis 09/07, rev Hyperechoic structure noted on aortic valve. Possible vegetation. Discussed with Dr Eddie GOMEZ specialist -Oncology Dr. Ledesma recommends bone marrow biopsy to rule out myelodysplastic syndrome -S/P bone marrow biopsy by IR on 09/06/18 rev and normal. -Patient with more pain and elevated BP on 09/07 add morphine for breakthrough pain - started on prednisone, discontinue tramadol. Add [place] per pain scale and keep morphine for breakthrough pain, tapered down morphine. Sepsis with Community-acquired pneumonia/Poss endocarditis aortic valve: Patient with 2-week history of cough. +leukocytosis with WBC 15K, fever Tmax 101.2, and suspected source-pneumonia. The patient is with splenic infarct, bilateral pneumonia with possible septic emboli. Plan for echo with echodensity to rule out probable endocarditis. Also rule out noninfectious causes of thromboembolic diseases. -Chest x-ray reviewed, shows minimal ill-defined infiltrate in the lungs -Blood cultures with NGTD -Repeat blood cultures ordered with spike of fever today 08/31 -Check sputum culture and influenza -Give IVF hydration -temp 102 noted on 09/01/18 repeat blood cx, consult ID, antibiotics changed per ID recommendations, continue azithromycin and started on cefepime IV. Persistent fevers until 09/03 - repeat ECHO to r/o endocarditis 09/07, rev: Hyperechoic structure noted on aortic valve. Possible vegetation. Discussed with Dr Eddie GOMEZ specialist Hypertension: No history of high blood pressure, although BP has been elevated throughout admission, likely exacerbated by pain -Control pain with tramadol as needed -IV Vasotec prn -Monitor BP, add antihypertensives as needed History of gout. uric acid nl. DVT prophylaxis: Teds/SCDs; lovenox Discussed with the patient, nurse DC when cleared by ID and hem/ onc s/p bone marrow biopsy rev and normal. Patient needs prolonged IV abx discussed with Dr Eddie GOMEZ and also CM. Patient is however refusing PICC line placement, consult ID for 2nd opinion per patient request as he wants antibiotics by mouth. The pt was seen by Dr Autumn GOMEZ, who recommends IV antibiotics and doxy PO agree with this plan. Patient now agrees for IV anx however still reluctant to have a PICC line placed. Will attmept tomorrow for PICC line as patient refused current team says he doesn't trust one of the tech patient agrees to PICC placement this afternoon 3/4 Discussed at length DC plan, patient expressed understanding. CM is also following for DC plan awaiting authorization from insurance. Progress Note: Quality VTE Deep Vein Thrombosis/Pulmonary Embolism Present on Admission: No
[2018-09-13] MEDS ORDERED: Heparin Central Flush 100 UNIT/ML 5 ML Vial IV.FLUSH SCH (09:00)
--- NOTE | 2018-09-13 09:23 | P.DS ---
DS: Providers Date of admission: 08/30/18 11:06 Primary care physician: UNKNOWN Consults: 08/30/18 03:29 Consult to Hematology Routine Consulting Provider: Rashmi Wilder Reason for Consultation: splenic infarct with splenic artery thrombosis Notified:: Service Spoke with:: TIGRE Date Notified:: 08/30/18 Time Notified:: 06:02 Ordering Provider: ESTEVAN 09/01/18 12:14 Consult to Infectious Diseases Routine Consulting Provider: Charlotte Morgan Reason for Consultation: persistent fevers, sepsis, bilat pna, splenic infarction Notified:: Service Spoke with:: Herbie Date Notified:: 09/01/18 Time Notified:: 12:17 Ordering Provider: BOLIVAR 09/10/18 14:26 Consult to Infectious Diseases Routine Consulting Provider: Silvia Leyva Reason for Consultation: second opinion per patient request he doesn't want PICC placed and he wants PO antibiotics. Patient with Ao valve vegetation Notified:: Service Spoke with:: Jennie Date Notified:: 09/10/18 Time Notified:: 14:31 Ordering Provider: BOLIVAR 09/12/18 15:12 HUB Only Consult Order Routine Consulting Provider: Waldo Elmore,Rob DS: Summary 57-year-old male with no significant past medical history presents to the emergency department for evaluation of left-sided abdominal/flank pain. 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 Unknown etiology of thrombosis. -Echocardiogram showed normal EF 55-60%; however there appears to be an echolucent linear structure which may represent atheromatous plaque, calcification of the noncoronary cusp of the aortic valve, or possible artifact ; recommended to consider chest CTA for further evaluation. Chest CTA rev. -Hematology consulted, appreciate recommendations, hypercoagulable and myeloproliferative workup in progress -Per hematology, continue while inpatient anticoagulation with Lovenox, can discharge on Eliquis. -09/01 with edema in right hand and arm, US doppler with superficial thrombus. Note patient reports h/o poss SLE and also h/o gout. RF is positive needs to follow up as OP with rheumatology. Started on prednisone with improvement. Patient to follow as OP with rheum Dr Avery - repeat ECHO to r/o endocarditis 09/07, rev Hyperechoic structure noted on aortic valve. Possible vegetation. Discussed with Dr Eddie GOMEZ specialist -Oncology Dr. Ledesma recommends bone marrow biopsy to rule out myelodysplastic syndrome -S/P bone marrow biopsy by IR on 09/06/18 rev and normal. -Patient with more pain and elevated BP on 09/07 add morphine for breakthrough pain - started on prednisone, discontinue tramadol. Add [place] per pain scale and keep morphine for breakthrough pain, tapered down morphine. Patient imprpved significantly and did not use morphine. Sepsis with Community-acquired pneumonia/Poss endocarditis aortic valve: Patient with 2-week history of cough. +leukocytosis with WBC 15K, fever Tmax 101.2, and suspected source-pneumonia. The patient is with splenic infarct, bilateral pneumonia with possible septic emboli. Plan for echo with echodensity to rule out probable endocarditis. Also rule out noninfectious causes of thromboembolic diseases. -Chest x-ray reviewed, shows minimal ill-defined infiltrate in the lungs -Blood cultures with NGTD -Repeat blood cultures ordered with spike of fever today 08/31 -Check sputum culture and influenza -Give IVF hydration -temp 102 noted on 09/01/18 repeat blood cx, consult ID, antibiotics changed per ID recommendations, continue azithromycin and started on cefepime IV. Persistent fevers until 09/03 - repeat ECHO to r/o endocarditis 09/07, rev: Hyperechoic structure noted on aortic valve. Possible vegetation. Discussed with Dr Eddie GOMEZ specialist, Recommends IV abx Rocephin at CT 2gm q24 hrs as well as doxycycline and to follow up with Dr Alfredo GOMEZ as OP. Patient has placed PICC line for IV abx administration at CT. Hypertension: No history of high blood pressure, although BP has been elevated throughout admission, likely exacerbated by pain -Control pain - Received IV Vasotec prn. Started on losartan -Monitor BP, add antihypertensives as needed History of gout. uric acid nl. DVT prophylaxis: Teds/SCDs; lovenox Discussed with the patient, nurse DCed when cleared by ID and hem/ onc, patient improved s/p bone marrow biopsy rev and normal. Patient needs prolonged IV abx discussed with Dr Eddie GOMEZ and also CM. Patient is however refusing PICC line placement initially, consult ID for 2nd opinion per patient request as he wants antibiotics by mouth. The pt was seen by Dr Dimayuga ID, who recommends IV antibiotics and doxy PO agree with this plan. Patient now agrees for IV anx however still reluctant to have a PICC line placed initially. Patient however agrees to PICC line placement on 09/12 and to have abx at DC as per ID recommendations. Patient to follow up as OP with his PCP , rheumatology , ID Dr Fuentes and also with Dr Keller hem onc. PICC placement 09/12 Discussed at length DC plan with the patient, he expressed understanding. DC home with home health in stable condition to follow with PCP and consultants as outpatient. Time Spent with Patient Total time spent providing and/or coordinating discharge services: > 30 min Quality: VTE Deep Vein Thrombosis/Pulmonary Embolism Present on Admission: No Exam Narrative Exam Narrative: GENERAL: Pleasant 57-year-old male, appears in not acute distress. SKIN: Warm and dry. No rash. Right hand with swelling and pain improved significantly. CARDIOVASCULAR: Regular rate and rhythm. No murmur appreciated. RESPIRATORY: No accessory muscle use. Clear to auscultation. Breath sounds equal bilaterally. GASTROINTESTINAL: Abdomen soft, nondistended, left upper quadrant tenderness to palpation. Normoactive bowel sounds x4. MUSCULOSKELETAL: No obvious deformities. Extremities without clubbing, cyanosis. Right hand edema improved significantly no much pain. Right knee swelling, no erythema, less painful. Improved. NEUROLOGICAL: Awake and alert. No obvious cranial nerve deficits. Moving all extremities spontaneously. Normal speech. PSYCHIATRIC: Appropriate mood and affect; insight and judgment normal. Results Impressions ITS Impressions Abdomen/Pelvis CT 08/29/18 21:42 CONCLUSION: 1. I believe patient symptoms are due to splenic infarction with only central enhancement of the splenic parenchyma. There appears to be some thrombus within the splenic artery. 2. Prominent prostate with dystrophic type calcifications. Chest CTA 08/31/18 00:00 CONCLUSION: 1. The study is degraded by breathing motion. 2. No pulmonary emboli observed. 3. Bilateral pulmonary infiltrates most pronounced within the left lower lobe. 4. Coronary artery atherosclerotic calcifications. 5. Tiny left effusion. Venous Doppler Study 09/01/18 00:00 CONCLUSION: 1. Nonocclusive thrombus in the distal basilic vein at the IV site. Chest X-Ray 09/02/18 00:00 CONCLUSION: Developing consolidative changes left base consistent with and inflammatory process Bone Marrow Biopsy w/ CT 09/06/18 00:00 CONCLUSION: 1. Uncomplicated CT guided bone marrow aspirate. 2. Uncomplicated CT guided bone marrow biopsy. Discharge Plan Discharge Disposition Patient Disposition: Disch W/Home Health Service Discharge Condition Condition: Stable Discharge Order Discharge Orders: Discharge Order (Routine); Ordered 09/12/18 Ordered By: Ange Prado Discharge Details Anticipated Discharge Date: 09/12/18 Discharge Comment: Dc when arrangements are done Physicians Team Primary Care Provider: UNKNOWN, Attending Provider: Ange Prado Other Providers: Rashmi Wilder ; Charlotte Morgan ; Silvia Leyva ; Waldo [facility],Agency Rxs /Orders / Referrals /Forms Prescriptions: New doxycycline hyclate 100 mg Capsule 100 mg PO Q12HR 42 Days RF: 0 ceftriaxone 2 gram Recon Soln 2,000 mg IV Q24H 42 Days RF: 0 losartan 50 mg Tablet 50 mg PO DAILY Qty: 30 RF: 0 hydrocodone-acetaminophen 10-325 mg Tablet 1 tab PO Q4H PRN (Reason: Acute Pain Exception) Qty: 10 RF: 0 apixaban [Eliquis] 5 mg (74 tabs) tablets,dose pack 5 mg PO PER PKG DIR Qty: 74 RF: 0 prednisone 50 mg tablet 50 mg PO DAILY Qty: 20 RF: 0 Ambulatory Orders / Order Sets / DME: [facility] (1 each) (Routine) Location: Determined by Patient Ordered By: Ange Prado Referrals: Avril Erazo MD [Physician] - See Instructions (Please call Dr.Reba Erazo office on 09/12/18 to make an appt for follow up in [address]Reba Erazo office aware and expecting your phone call. ) Rashmi Wilder [Physician] - See Instructions ( Please call the physician 's office to book the appointment to be seen within [1 week].) UNKNOWN, [Primary Care Provider] - See Instructions ( Please call the physician's office to book the appointment to be seen within [2-3 days with your pcp].) Jaya Macias MD [Physician] - See Instructions ( Please call the physician's office to book the appointment to be seen within [2-3 days]. You can also follow up with your pcp regarding rheumatology dr of choice by your pcp ) Stand Alone Forms: Work Release/Restrictions Discharge Instructions Patient Printed Instructions: Endocarditis (GEN), Peripherally Inserted Central Catheters and Midline Catheters (GEN) Additional Instructions: Your Health Problems: Goals to Promote Your Health: * To prevent worsening of your condition * To maintain your health at the optimal level Directions to Meet Your Goals: * Take your medications as prescribed * Follow your dietary instruction * Follow activity as directed * Keep your appointments as scheduled * Take your immunizations and boosters as scheduled * If your symptoms worsen call your PCP * If no PCP go to Urgent Care or Emergency Room Smoking is dangerous to your health. Avoid second hand smoke. You may reach the 24-hour crisis hotline for domestic abuse at . Post Discharge Care Plan Care Plan Goals: Your Health Problems: Goals to Promote Your Health: * To prevent worsening of your condition * To maintain your health at the optimal level Directions to Meet Your Goals: * Take your medications as prescribed * Follow your dietary instruction * Follow activity as directed * Keep your appointments as scheduled * Take your immunizations and boosters as scheduled * If your symptoms worsen call your PCP * If no PCP go to Urgent Care or Emergency Room Smoking is dangerous to your health. Avoid second hand smoke. You may reach the 24-hour [employer] hotline for domestic abuse at . Status ED Status: Left Department Discharge Information Discharge Date/Time: 09/12/18 20:12
[2018-09-13 14:59] LABS: Bartonella Henselae IgG <1:128 titer (<1:128); Bartonella Henselae IgM <1:20 titer (<1:20); Bartonella Quintana IgG <1:128 titer (<1:128); Bartonella Quintana IgM <1:20 titer (<1:20)
== END 2018-09-12 20:12 | disposition home health service (06) | DRG 871 ==
LOC: NEDA 16:31 → NEPD 16:31 → NEPHCDU 08-30 04:02 → UNDODISIN 08-31 12:06 → HCIS 08-31 13:28 → HCIN 09-02 22:32
PROVIDERS: ADMIT Hospitalist; ATTEND Hospitalist
DX: I74.8 Embolism and thrombosis of other arteries; M10.9 Gout, unspecified; I82.629 Acute embolism and thrombosis of deep veins of unspecified upper extremity; Z53.29 Procedure and treatment not carried out because of patient's decision for other reasons; D73.5 Infarction of spleen; I82.890 Acute embolism and thrombosis of other specified veins; M19.90 Unspecified osteoarthritis, unspecified site; J18.9 Pneumonia, unspecified organism; I26.90 Septic pulmonary embolism without acute cor pulmonale; I38 Endocarditis, valve unspecified; R19.7 Diarrhea, unspecified; Z79.01 Long term (current) use of anticoagulants; Z87.891 Personal history of nicotine dependence; Z82.49 Family history of ischemic heart disease and other diseases of the circulatory system; M32.9 Systemic lupus erythematosus, unspecified; A41.9 Sepsis, unspecified organism; I10 Essential (primary) hypertension
CPT/HCPCS: 36569; 38222; 71010; 71045; 71275; 74177; 76360; 76937; 77012; 80048; 80053; 80074; 80202; 81001; 81206; 81207; 81219; 81240; 81241; 81270; 81401; 81402; 82550; 82565; 83605; 83690; 83735; 84145; 84484; 84550; 85025; 85097; 85300; 85303; 85306; 85597; 85598; 85610; 85613; 85670; 85730; 86038; 86039; 86140; 86146; 86147; 86148; 86225; 86235; 86255; 86403; 86430; 86431; 86606; 86611; 86713; 87015; 87040; 87070; 87102; 87116; 87205; 87206; 87275; 87276; 87327; 87385; 87389; 87449; 87535; 87804; 87899; 88305; 88311; 88313; 90761; 90765; 90775; 93005; 93306; 93308; 93971; 96361; 96365; 96375; 97110; 97162; 97530; 99145; 99152; 99153; 99285; C1830; J0692; J0696; J1644; J1650; J2250; J2270; J2405; J3010; J3370; J7030; J7040; J7050; J7506; J7512; Q9967